=== PATIENT | female | born 1985 | race Two or more races ===

== ENCOUNTER 2016-08-27 07:20 | Observation (INO) | payer OTHER ==
[2016-08-27] MEDS ORDERED: SODIUM CHLORIDE 0.9% 500 ML INFUS.BAG IV ONE ×2 (08:00→10:24)
[2016-08-27] MEDS ORDERED: ONDANSETRON 4 MG/2 ML VIAL IVPB ONE (08:00)
[2016-08-27] MEDS ORDERED: HYDROmorphone HCL CARPU-JECT 1 MG/1 ML DISP.SYRIN IVPUSH ONE (08:01)
--- NOTE | 2016-08-27 08:05 | PDOC ---
History of Present Illness - General History Source: Patient, Old Records Exam Limitations: No Limitations <Sherin Kim - Last Filed: 08/27/16 09:31> - History of Present Illness Initial Comments: 08/27/16 08:08 - General History Source: Patient, Old Records Exam Limitations: No Limitations - History of Present Illness Initial Comments: 08/27/16 08:07 The patient is a 30-year-old woman with no past medical history who presents to the emergency department for further evaluation of persistent vomiting for the past 3 days. As per patient, she was attending her sisters rehearsal dinner, where they served Tequila. She states that she typically does not drink this, but consumed it anyway. Since the event, she reports multiple nonbloody episodes of emesis. No fever, chills, diarrhea. She states that she is unable to tolerate anything by mouth and notes associated symptoms of diffuse abdominal pain, thus presents to the emergency department. Her last menstrual period was a few weeks ago and was normal and on time. Patient presented to this emergency department with a similar presentation in the past (01/30/2016) when she consumed Patrone. She was noted to have some gallbladder inflammation but her symptoms resolved after a few days, thus she did not require undergoing cholecystectomy. She denies fever, chills, diaphoresis, generalized weakness. She denies chest pain, shortness of breath, cough She denies diarrhea, dysuria, hematuria, urinary frequency and urgency, flank pain. Allergies: No Known Drug Allergies. Past Surgical History: None reported Social History: Current some day cigarette smoker (approximately 3-4 cigarettes) . Social ETOH use. Occasional Marijuana. Primary Care Physician: Dr. Aissatou Alcocer [phone] Remainder of the review of systems is negative. <Sherin Kim - Last Filed: 08/27/16 08:08> <Sklya Callejas - Last Filed: 08/27/16 10:44> - General Chief Complaint: Nausea/Vomiting Stated Complaint: VOMITING Time Seen by Provider: 08/27/16 07:48 Past History <Sherin Kim - Last Filed: 08/27/16 09:31> - Past Medical History Asthma: No Cancer: No Cardiac Disorders: No Diabetes: No HTN: No Suicide Attempt (Hx): No Seizures: No Thyroid Disease: No - Immunization History Immunization Up to Date: Yes - Psycho/Social/Smoking Cessation Hx Anxiety: No Suicidal Ideation: No Smoking History: Current some day smoker Have you smoked in the past 12 months: Yes Number of Cigarettes Smoked Daily: 3 If you are a former smoker, when did you quit?: patient smokes marijuana occasionally Information on smoking cessation initiated: No Hx Alcohol Use: No Drug/Substance Use Hx: No Substance Use Type: Marijuana Hx Substance Use Treatment: No <Skyla Callejas - Last Filed: 08/27/16 10:44> - Past Medical History Allergies/Adverse Reactions: Allergies Allergy/AdvReac Type Severity Reaction Status Date / Time No Known Allergies Allergy Verified 08/27/16 07:39 Home Medications: Ambulatory Orders NK [No Known Home Medication] 01/24/15 Review of Systems - Review of Systems Able to Perform ROS?: Yes Comments:: 08/27/16 08:07 12 point review of systems is as per history of present illness and otherwise negative. <Sherin Kim - Last Filed: 08/27/16 09:31> *Physical Exam - Vital Signs Last Vital Signs Temp Pulse Resp BP Pulse Ox 98.2 F 88 18 154/97 100 08/27/16 07:20 08/27/16 07:20 08/27/16 07:20 08/27/16 07:20 08/27/16 07:20 <Sherin Kim - Last Filed: 08/27/16 09:31> - Vital Signs Last Vital Signs Temp Pulse Resp BP Pulse Ox 98.2 F 88 18 154/97 100 08/27/16 07:20 08/27/16 07:20 08/27/16 07:20 08/27/16 07:20 08/27/16 07:20 - Physical Exam Comments: 08/27/16 08:01 Physical exam Last Vital Signs Temp Pulse Resp BP Pulse Ox 98.2 F 88 18 154/97 100 08/27/16 07:20 08/27/16 07:20 08/27/16 07:20 08/27/16 07:20 08/27/16 07:20 GENERAL: The patient is awake, alert, and actively retching and vomiting HEAD: Normal with no signs of trauma. EYES: sclera anicteric, conjunctiva are normal. ENT: Moist mucous membranes. NECK: Normal range of motion, supple LUNGS: Breath sounds equal, clear to auscultation bilaterally. No wheezes, and no crackles. HEART: Regular rate and rhythm, normal S1 and S2 without murmur, rub or gallop. ABDOMEN: The abdomen is soft, with hypoactive but present bowel sounds There is mild diffuse tenderness, but more prominent tenderness in the upper mid epigastrium and right upper quadrant to palpation, without guarding or rebound There is no CVA tenderness EXTREMITIES: Normal range of motion, no edema. No clubbing or cyanosis. No cords, erythema, or tenderness. NEUROLOGICAL: Cranial nerves II through XII grossly intact. Normal speech, normal gait. PSYCH: Normal mood, normal affect. SKIN: Warm, Dry, normal turgor, no rashes or lesions noted. <Skyla Callejas - Last Filed: 08/27/16 10:44> ED Treatment Course - LABORATORY CBC & Chemistry Diagram: 08/27/16 09:12 08/27/16 09:12 - RADIOLOGY Radiograph Interpretation: 08/27/16 09:32 EXAM: US/ABDOMEN US -LIMITED IMPRESSION: Right upper quadrant abdomen ultrasound Clinical information: right upper quadrant and upper mid epigastric pain No biliary calculus is identified. The gallbladder appears unremarkable. No pericholecystic fluid is seen. The common bile duct diameter appears within normal limits 0.4 cm. No obvious intraductal calculus is visualized. The liver and partially visualized pancreas demonstrate no sonographic pathology. A 0.4 cm nonobstructing right renal calculus is identified. No free intraperitoneal fluid is noted. <Sherin Kim - Last Filed: 08/27/16 09:31> - LABORATORY CBC & Chemistry Diagram: 08/27/16 09:12 08/27/16 09:12 <Skyla Callejas - Last Filed: 08/27/16 10:44> Medical Decision Making - Medical Decision Making 08/27/16 08:02 30-year-old female, who after a bout of binge drinking on night, started vomiting, and has not been able to keep anything down since then She did have a similar presentation on 01/2016, and at that time was noted to have some gallbladder inflammation, but her symptoms resolved after a few days, and she did not have a cholecystectomy at that time 08/27/16 10:03 Right upper quadrant ultrasound No sonographic evidence of acute biliary tract pathology, and when compared to the prior ultrasound there is resolution of the mild diffuse gallbladder wall thickening seen on the prior ultrasound 08/27/16 10:42 Laboratory Results - last 24 hr 08/27/16 08/27/16 09:12 09:12 WBC 20.3 H D RBC 5.32 H D Hgb 14.9 D Hct 45.7 H D MCV 86.0 MCHC 32.6 RDW 14.6 Plt Count 212 D MPV 11.5 H Sodium 140 Potassium 4.1 Chloride 101 Carbon Dioxide 24 Anion Gap 15 BUN 19 H D Creatinine 0.8 Creat Clearance w eGFR > 60 Random Glucose 96 Calcium 9.8 D Magnesium 2.0 Total Bilirubin 0.9 D AST 34 D ALT 27 Alkaline Phosphatase 61 D Total Protein 7.6 D Albumin 4.3 D Lipase 70 L 20,000 white count, patient appears somewhat dehydrated Will admit/place in observation Case discussed with hospitalist <Skyla Callejas - Last Filed: 08/27/16 10:44> *DC/Admit/Observation/Transfer - Attestations Scribe Attestion: 08/27/16 08:07 Documentation prepared by Sherin Kim, acting as medical records receptionist for Skyla Callejas MD. <Sherin Kim - Last Filed: 08/27/16 09:31> - Discharge Dispostion Admit: Yes <Skyla Callejas - Last Filed: 08/27/16 10:44> Diagnosis at time of Disposition: Vomiting, Dehydration, Gastritis - Referrals Referrals: Aissatou Alcocer MD [Primary Care Provider] -
[2016-08-27] MEDS ORDERED: ONDANSETRON 4 MG/2 ML VIAL ONE (09:08)
[2016-08-27] MEDS ORDERED: HYDROmorphone HCL CARPU-JECT 1 MG/1 ML DISP.SYRIN ONE (09:18)
[2016-08-27 09:34] LABS: MCH 28.1 pg (25.7-33.7); MCHC 32.6 g/dl (32.0-36.0); MEAN PLT VOLUME 11.5 fl (7.5-11.1); PLATELET COUNT 212 K/MM3 (134-434); RDW 14.6 % (11.6-15.6); WHITE BLOOD COUNT 20.3 K/mm3 (4.0-10.0)
[2016-08-27 10:12] LABS: ALBUMIN 4.3 g/dl (3.4-5.0); ALK PHOS 61 U/L (45-117); ANION GAP 15 (8-16); BILIRUBIN,TOTAL 0.9 mg/dL (0.2-1.0); CALCIUM 9.8 mg/dL (8.5-10.1); CO2 24 mmol/L (21-32); CREATININE 0.8 mg/dL (0.55-1.02); GLUCOSE,RANDOM 96 mg/dL (74-106); SGPT/ALT 27 U/L (12-78); TOT PROT 7.6 g/dl (6.4-8.2)
[2016-08-27 10:13] LABS: SGOT/AST 34 U/L (15-37)
--- NOTE | 2016-08-27 11:43 | HP ---
CHIEF COMPLAINT: PCP: HISTORY OF PRESENT ILLNESS: ER course was notable for: (1) (2) (3) Recent Travel: PAST MEDICAL HISTORY: PAST SURGICAL HISTORY: Social History: Smoking: Alcohol: Drugs: Family History: Allergies No Known Allergies Allergy (Verified 08/27/16 07:39) HOME MEDICATIONS: Home Medications Medication Instructions Recorded NK [No Known Home Medication] 01/24/15 REVIEW OF SYSTEMS CONSTITUTIONAL: Absent: fever, chills, diaphoresis, generalized weakness, malaise, loss of appetite, weight change HEENT: Absent: rhinorrhea, nasal congestion, throat pain, throat swelling, difficulty swallowing, mouth swelling, ear pain, eye pain, visual changes CARDIOVASCULAR: Absent: chest pain, syncope, palpitations, irregular heart rate, lightheadedness , peripheral edema RESPIRATORY: Absent: cough, shortness of breath, dyspnea with exertion, orthopnea, wheezing, stridor, hemoptysis GASTROINTESTINAL: Absent: abdominal pain, abdominal distension, nausea, vomiting, diarrhea, constipation, melena, hematochezia GENITOURINARY: Absent: dysuria, frequency, urgency, hesitancy, hematuria, flank pain, genital pain MUSCULOSKELETAL: Absent: myalgia, arthralgia, joint swelling, back pain, neck pain SKIN: Absent: rash, itching, pallor HEMATOLOGIC/IMMUNOLOGIC: Absent: easy bleeding, easy bruising, lymphadenopathy, frequent infections ENDOCRINE: Absent: unexplained weight gain, unexplained weight loss, heat intolerance, cold intolerance NEUROLOGIC: Absent: headache, focal weakness or paresthesias, dizziness, unsteady gait, seizure, mental status changes, bladder or bowel incontinence PSYCHIATRIC: Absent: anxiety, depression, suicidal or homicidal ideation, hallucinations. PHYSICAL EXAMINATION GENERAL: Awake, alert, and fully oriented, in no acute distress. HEAD: Normal with no signs of trauma. EYES: Pupils equal, round and reactive to light, extraocular movements intact, sclera anicteric, conjunctiva clear. No lid lag. EARS, NOSE, THROAT: Ears normal, nares patent, oropharynx clear without exudates. Moist mucous membranes. NECK: Normal range of motion, supple without lymphadenopathy, JVD, or masses. LUNGS: Breath sounds equal, clear to auscultation bilaterally. No wheezes, and no crackles. No accessory muscle use. HEART: Regular rate and rhythm, normal S1 and S2 without murmur, rub or gallop. ABDOMEN: Soft, nontender, not distended, normoactive bowel sounds, no guarding, no rebound, no masses. No hepatomegaly or splenomegaly. MUSCULOSKELETAL: Normal range of motion at all joints. No bony deformities or tenderness. No CVA tenderness. UPPER EXTREMITIES: 2+ pulses, warm, well-perfused. No cyanosis. No clubbing. No peripheral edema. LOWER EXTREMITIES: 2+ pulses, warm, well-perfused. No calf tenderness. No peripheral edema. NEUROLOGICAL: Cranial nerves II-XII intact. Normal speech. Normal gait. PSYCHIATRIC: Cooperative. Good eye contact. Appropriate mood and affect. SKIN: Warm, dry, normal turgor, no rashes or lesions noted, normal capillary refill. ASSESSMENT/PLAN: Visit type - Emergency Visit Emergency Visit: Yes ED Registration Date: 08/27/16 Care time: The patient presented to the Emergency Department on the above date and was hospitalized for further evaluation of their emergent condition. - New Patient This patient is new to me today: Yes Date on this admission: 08/27/16 - Critical Care Critical Care patient: No
[2016-08-27 11:49] VITALS: BMI 24.9
[2016-08-27 12:02] LABS: URINE APPEARANCE CLEAR; URINE BILIRUBIN NEGATIVE (NEGATIVE); URINE COLOR AMBER; URINE GLUCOSE (UA) NEGATIVE (NEGATIVE); URINE KETONE 1+ (NEGATIVE); URINE LEUK ESTERASE NEGATIVE (NEGATIVE); URINE NITRITE NEGATIVE (NEGATIVE); URINE UROBILINOGEN 2.0 E.U/dl E.U./dl (0.2-1.0)
[2016-08-27 12:24] LABS: URINE BLOOD 1+ (NEGATIVE); URINE PROTEIN 2+ (NEGATIVE)
[2016-08-27 12:26] LABS: URINE MUCUS MANY; URINE RBC 20 /hpf (0-3); URINE WBC 10 /hpf (3-5)
--- NOTE | 2016-08-27 13:47 | HP ---
CHIEF COMPLAINT: nausea, hyperemesis and elevated wbc PCP: does not have one HISTORY OF PRESENT ILLNESS: This 30 yr old with a recent episode of drinking alcohol ingesting large quantities while at a wedding when she developed several epsiodes of excessive vomiting becoming cyclical and dehydration evolved. ER course was notable for: (1) nausea and vomiting (2) leukocytosis (3) dehydration Recent Travel: none PAST MEDICAL HISTORY: none PAST SURGICAL HISTORY: denies Social History: Smoking: Alcohol: current user Drugs: Family History: Allergies No Known Allergies Allergy (Verified 08/27/16 07:39) HOME MEDICATIONS: Home Medications Medication Instructions Recorded NK [No Known Home Medication] 01/24/15 REVIEW OF SYSTEMS CONSTITUTIONAL: Absent: fever, chills, diaphoresis, generalized weakness, malaise, loss of appetite, weight change HEENT: Absent: rhinorrhea, nasal congestion, throat pain, throat swelling, difficulty swallowing, mouth swelling, ear pain, eye pain, visual changes CARDIOVASCULAR: Absent: chest pain, syncope, palpitations, irregular heart rate, lightheadedness , peripheral edema RESPIRATORY: Absent: cough, shortness of breath, dyspnea with exertion, orthopnea, wheezing, stridor, hemoptysis GASTROINTESTINAL: Absent: abdominal pain, abdominal distension, nausea, vomiting, diarrhea, constipation, melena, hematochezia GENITOURINARY: Absent: dysuria, frequency, urgency, hesitancy, hematuria, flank pain, genital pain MUSCULOSKELETAL: Absent: myalgia, arthralgia, joint swelling, back pain, neck pain SKIN: Absent: rash, itching, pallor HEMATOLOGIC/IMMUNOLOGIC: Absent: easy bleeding, easy bruising, lymphadenopathy, frequent infections ENDOCRINE: Absent: unexplained weight gain, unexplained weight loss, heat intolerance, cold intolerance NEUROLOGIC: Absent: headache, focal weakness or paresthesias, dizziness, unsteady gait, seizure, mental status changes, bladder or bowel incontinence PSYCHIATRIC: Absent: anxiety, depression, suicidal or homicidal ideation, hallucinations. PHYSICAL EXAMINATION Vital Signs - 24 hr 08/27/16 08/27/16 11:30 12:00 Temperature 98.3 F Pulse Rate 67 72 Respiratory 18 18 Rate Blood Pressure 123/73 122/77 O2 Sat by Pulse 97 98 Oximetry (%) GENERAL: Awake, alert, and fully oriented, in no acute distress. HEAD: Normal with no signs of trauma. NECK: Normal range of motion, supple without lymphadenopathy, JVD, or masses. LUNGS: Breath sounds equal, clear to auscultation bilaterally. No wheezes, and no crackles. No accessory muscle use. HEART: Regular rate and rhythm, normal S1 and S2 without murmur, rub or gallop. ABDOMEN: Soft, nontender, not distended, normoactive bowel sounds, no guarding, no rebound, no masses. No hepatomegaly or splenomegaly. MUSCULOSKELETAL: Normal range of motion at all joints. No bony deformities or tenderness. No CVA tenderness. UPPER EXTREMITIES: 2+ pulses, warm, well-perfused. No cyanosis. No clubbing. No peripheral edema. LOWER EXTREMITIES: 2+ pulses, warm, well-perfused. No calf tenderness. No peripheral edema. NEUROLOGICAL: Cranial nerves II-XII intact. Normal speech. Normal gait. PSYCHIATRIC: Cooperative. Good eye contact. Appropriate mood and affect. SKIN: Warm, dry, normal turgor, no rashes or lesions noted, normal capillary refill. Laboratory Results - last 24 hr 08/27/16 08/27/16 11:42 11:42 Urine Color Marybeth Urine Appearance Clear Urine pH 6.0 D Ur Specific [place] 1.034 Urine Protein 2+ H Urine Glucose (UA) Negative Urine Ketones 1+ H Urine Blood 1+ H Urine Nitrite Negative Urine Bilirubin Negative Urine Urobilinogen 2.0 e.u/dl H Ur Leukocyte Esterase Negative Urine RBC 20 Urine WBC 10 Ur Epithelial Cells Few Urine Mucus Many Urine HCG, Qual Negative ASSESSMENT/PLAN: This 30 yr old with dehydration 2nd to vomiting and elevated WBC 1. dehydration -IVF's -po challenge -zofran as needed 2. wbc elevated. possible due to dehydration -repeat cbc after rehydration Visit type - Emergency Visit Emergency Visit: Yes ED Registration Date: 08/27/16 Care time: The patient presented to the Emergency Department on the above date and was hospitalized for further evaluation of their emergent condition. - New Patient This patient is new to me today: Yes Date on this admission: 08/27/16 - Critical Care Critical Care patient: No
[2016-08-27] MEDS: ONDANSETRON 4 MG/2 ML VIAL IVPB PRN ×2 (14:22→22:16)
[2016-08-27 15:02] LABS: PLATELET ESTIMATE ADEQUATE (NORMAL)
[2016-08-27] MEDS: HYDROmorphone HCL CARPU-JECT 1 MG/1 ML DISP.SYRIN IVPB PRN (15:06)
[2016-08-27] MEDS: SODIUM CHLORIDE 1,000 ML IV SCH ×2 (16:13→23:26)
[2016-08-28] MEDS ORDERED: ACETAMINOPHEN 325 MG TABLET (FP) PO ONE (02:15)
[2016-08-28] MEDS: SODIUM CHLORIDE 1,000 ML IV SCH ×3 (06:28→22:56)
[2016-08-28 08:18] LABS: ALBUMIN 3.1 g/dl (3.4-5.0); ALK PHOS 52 U/L (45-117); ANION GAP 13 (8-16); BILIRUBIN,TOTAL 0.9 mg/dL (0.2-1.0); CALCIUM 7.9 mg/dL (8.5-10.1); CO2 24 mmol/L (21-32); CREATININE 0.7 mg/dL (0.55-1.02); GLUCOSE,RANDOM 82 mg/dL (74-106); MAGNESIUM 1.7 mg/dL (1.8-2.4); PHOSPHOROUS 2.9 mg/dL (2.5-4.9); SGOT/AST 15 U/L (15-37); SGPT/ALT 20 U/L (12-78); TOT PROT 5.6 g/dl (6.4-8.2)
[2016-08-28] MEDS ORDERED: POTASSIUM CHLORIDE TABS 20 MEQ TABLET.ER (FP) PO ONE (09:30)
[2016-08-28] MEDS ORDERED: MAGNESIUM OXIDE 400 MG TABLET (FP) PO ONE (09:30)
[2016-08-28 10:34] LABS: BASOPHIL 0.6 % (0-2.0); EOSINOPHIL 0.1 % (0-4.5); MCH 27.9 pg (25.7-33.7); MCHC 32.2 g/dl (32.0-36.0); MEAN CELL VOLUME 86.5 fl (80-96); MEAN PLT VOLUME 11.1 fl (7.5-11.1); NEUTROPHILS 77.1 % (42.8-82.8); PLATELET COUNT 151 K/MM3 (134-434); RDW 14.3 % (11.6-15.6); WHITE BLOOD COUNT 16.8 K/mm3 (4.0-10.0)
[2016-08-28] MEDS: ONDANSETRON 4 MG/2 ML VIAL IVPB PRN ×2 (11:20→22:57)
[2016-08-28] MEDS: HYDROmorphone HCL CARPU-JECT 1 MG/1 ML DISP.SYRIN IVPB PRN (11:35)
[2016-08-28] MEDS: KCL 10 MEQ IVPB 100 ML IVPB SCH ×2 (11:37→13:10)
[2016-08-28] MEDS ORDERED: METRONIDAZOLE 500 MG PREMIXED 100 ML IVPB SCH (18:00)
--- NOTE | 2016-08-28 18:08 | PN ---
Progress Note (short form) - Note Progress Note: Subjective: The patient was seen and examined at the bedside, she reports having one episode of vomiting this AM (food particles, non-bilious, non-bloody) , however nothing since then. She denies any diarrhea, stating she had a solid bowel movement this morning. She denies any abdominal pain. Current Medications Generic Name Dose Route Start Last Admin Trade Name Freq PRN Reason Stop Dose Admin Hydromorphone HCl 0.5 mg 08/27/16 14:41 08/28/16 11:35 Dilaudid Injection - IVPB 0.5 mg Q4H PRN Administration PAIN Sodium Chloride 1,000 mls @ 125 mls/hr 08/27/16 11:45 08/28/16 15:11 Normal Saline - IV Not Given ASDIR UMA Ondansetron HCl 4 mg 08/27/16 11:43 08/28/16 11:20 Zofran Injection IVPB 4 mg Q6H PRN Administration NAUSEA Objective: Vital Signs Period Temp Pulse Resp BP Sys/Gillette Pulse Ox Last 24 Hr 98.5 F-100.5 F 65-89 18-18 108-145/74-99 98 Physical Exam: General: NAD, A&Ox3 Lungs: CTA bilaterally Heart: RRR, S1S2 Abd: Soft, non-tender, non-distended. Normoactive bowel sounds Ext: Warm, well-perfused. 2+ DP/PT bilaterally Neuro: CN 2-12 intact CBCD WBC 16.8 K/mm3 (4.0-10.0) H 08/28/16 05:31 RBC 4.54 M/mm3 (3.60-5.2) 08/28/16 05:31 Hgb 12.6 GM/dL (10.7-15.3) D 08/28/16 05:31 Hct 39.2 % (32.4-45.2) 08/28/16 05:31 MCV 86.5 fl (80-96) 08/28/16 05:31 MCHC 32.2 g/dl (32.0-36.0) 08/28/16 05:31 RDW 14.3 % (11.6-15.6) 08/28/16 05:31 Plt Count 151 K/MM3 (134-434) D 08/28/16 05:31 MPV 11.1 fl (7.5-11.1) 08/28/16 05:31 CMP Sodium 141 mmol/L (136-145) 08/28/16 05:31 Potassium 2.9 mmol/L (3.5-5.1) L* D 08/28/16 05:31 Chloride 104 mmol/L (98-107) 08/28/16 05:31 Carbon Dioxide 24 mmol/L (21-32) 08/28/16 05:31 Anion Gap 13 (8-16) 08/28/16 05:31 BUN 8 mg/dL (7-18) D 08/28/16 05:31 Creatinine 0.7 mg/dL (0.55-1.02) 08/28/16 05:31 Creat Clearance w eGFR > 60 (>60) 08/28/16 05:31 Random Glucose 82 mg/dL (74-106) 08/28/16 05:31 Calcium 7.9 mg/dL (8.5-10.1) L 08/28/16 05:31 Total Bilirubin 0.9 mg/dL (0.2-1.0) 08/28/16 05:31 AST 15 U/L (15-37) D 08/28/16 05:31 ALT 20 U/L (12-78) D 08/28/16 05:31 Alkaline Phosphatase 52 U/L (45-117) 08/28/16 05:31 Total Protein 5.6 g/dl (6.4-8.2) L D 08/28/16 05:31 Albumin 3.1 g/dl (3.4-5.0) L D 08/28/16 05:31 Assessment: This is a 30 year old female with PMHx of admissions for vomiting who presented to the ED with vomiting and nausea x2 days. Plan: 1) GI: Nausea/vomiting - Resolving, last episode of vomiting this AM - Zofran prn - Diet as tolerated 2) ID: Leukocytosis, fever - Reactive vs. infectious - WBC trending down - Tmax 100.5 - UA negative - F/u blood cultures - Continue to observe off abx 3) F/E/N: - Hypokalemia: replete - Regular diet as tolerated 4) Prophylaxis: - OOB ambulating - SCDs bilaterally 5) Dispo: - Requires continued care - Once afebrile >24h, can consider discharge CODE STATUS: FULL CODE Visit type - Emergency Visit Emergency Visit: Yes ED Registration Date: 08/27/16 Care time: The patient presented to the Emergency Department on the above date and was hospitalized for further evaluation of their emergent condition. - New Patient This patient is new to me today: Yes Date on this admission: 08/28/16 - Critical Care Critical Care patient: No
[2016-08-29] MEDS: SODIUM CHLORIDE 1,000 ML IV SCH (07:36)
[2016-08-29 08:15] LABS: BASOPHIL 0.9 % (0-2.0); MCH 28.5 pg (25.7-33.7); MCHC 33.2 g/dl (32.0-36.0); MEAN CELL VOLUME 85.8 fl (80-96); MEAN PLT VOLUME 10.3 fl (7.5-11.1); NEUTROPHILS 66.8 % (42.8-82.8); PLATELET COUNT 160 K/MM3 (134-434); RDW 13.9 % (11.6-15.6); WHITE BLOOD COUNT 11.3 K/mm3 (4.0-10.0)
[2016-08-29 08:48] LABS: ALBUMIN 3.2 g/dl (3.4-5.0); ALK PHOS 52 U/L (45-117); ANION GAP 12 (8-16); BILIRUBIN,TOTAL 0.5 mg/dL (0.2-1.0); CALCIUM 8.5 mg/dL (8.5-10.1); CO2 25 mmol/L (21-32); CREATININE 0.8 mg/dL (0.55-1.02); GLUCOSE,RANDOM 76 mg/dL (74-106); MAGNESIUM 1.9 mg/dL (1.8-2.4); SGOT/AST 15 U/L (15-37); SGPT/ALT 20 U/L (12-78); TOT PROT 5.7 g/dl (6.4-8.2)
[2016-08-29] MEDS ORDERED: LEVOFLOXACIN 500 MG IVPB 100 ML IVPB SCH (10:00)
--- NOTE | 2016-08-29 10:32 | DS ---
Physical Exam: SUBJECTIVE: Patient seen and examined. Feeling much better. No complaints on exam. Tolerated fruit and juice for breakfast. OBJECTIVE: Vital Signs - 24 hr 3 08/28/16 08/28/16 08/28/16 12:00 14:51 17:30 Temperature 98.5 F 99.5 F Pulse Rate 67 65 Respiratory 18 18 18 Rate Blood Pressure 139/82 139/95 O2 Sat by Pulse 99 Oximetry (%) 3 08/28/16 08/28/16 08/29/16 20:00 21:00 01:00 Temperature 98.6 F 98.7 F Pulse Rate 71 71 Respiratory 20 20 Rate Blood Pressure 144/98 139/89 O2 Sat by Pulse 99 Oximetry (%) 3 08/29/16 05:00 Temperature 98.4 F Pulse Rate 72 Respiratory 20 Rate Blood Pressure 130/85 O2 Sat by Pulse Oximetry (%) PHYSICAL EXAM GENERAL: The patient is awake, alert, and fully oriented, in no acute distress. HEAD: Normal with no signs of trauma. EYES: PERRL, extraocular movements intact, sclera anicteric, conjunctiva clear. ENT: Ears normal, nares patent, oropharynx clear without exudates, moist mucous membranes. NECK: Trachea midline, full range of motion, supple. LUNGS: Breath sounds equal, clear to auscultation bilaterally, no wheezes, no crackles, no accessory muscle use. HEART: Regular rate and rhythm, S1, S2 without murmur, rub or gallop. ABDOMEN: Soft, nontender, nondistended, normoactive bowel sounds, no guarding, no rebound, no hepatosplenomegaly, no masses. EXTREMITIES: 2+ pulses, warm, well-perfused, no edema. NEUROLOGICAL: Cranial nerves II through XII grossly intact. Normal speech, gait not observed. PSYCH: Normal mood, normal affect. SKIN: Warm, dry, normal turgor, no rashes or lesions noted. LABS Laboratory Results - last 24 hr 3 08/28/16 08/29/16 08/29/16 05:31 07:45 07:45 WBC 16.8 H 11.3 H D RBC 4.54 4.66 Hgb 12.6 D 13.3 Hct 39.2 40.0 MCV 86.5 85.8 MCHC 32.2 33.2 RDW 14.3 13.9 Plt Count 151 D 160 MPV 11.1 10.3 Neutrophils % 77.1 66.8 Lymphocytes % 10.9 19.9 D Monocytes % 11.3 H 11.4 H Eosinophils % 0.1 D 1.0 D Basophils % 0.6 D 0.9 Sodium 141 Potassium 3.7 D Chloride 104 Carbon Dioxide 25 Anion Gap 12 BUN 5 L D Creatinine 0.8 Creat Clearance w eGFR > 60 Random Glucose 76 Calcium 8.5 Magnesium 1.9 Total Bilirubin 0.5 D AST 15 ALT 20 Alkaline Phosphatase 52 Total Protein 5.7 L Albumin 3.2 L HOSPITAL COURSE: Date of Admission:08/27/16 Date of Discharge: 08/29/16 This is a 30 year old female with PMH of recurrent vomiting who presented to the emergency department on 08/27/16 for persistent vomiting after drinking alcohol. She was treated for dehydration, hypokalemia and was found with leukocytosis. The leukocytosis is believed to be reactive to vomiting and dehydration. Her potassium responded to repletion. She is now stable, has had no fever or vomiting for greater than 24 hours and is ready for discharge. Pt is advised to abstain from alcohol and given a trial of zantac for 2 weeks. ASSESSMENT AND PLAN Vomiting - resolved Hypokalemia - resolved leukocytosis - improving, f/u with PCP in 1-2 weeks. Minutes to complete discharge: 45 Discharge Summary Reason For Visit: VOMITING, DEHYDRATION, GASTRITIS Current Active Problems Dehydration (Acute) Gastritis (Acute) Vomiting (Acute) Condition: Stable - Instructions Diet, Activity, Other Instructions: Return to the emergency department for new, worsening or persistent symptoms. Eat a bland diet, aviod spicy foods. Follow up with you primary care provider within 1-2 weeks. Avoid ALCOHOL. Referrals: Aissatou Alcocer MD [Primary Care Provider] - 2 Weeks Disposition: HOME - Home Medications Comprehensive Discharge Medication List: Ambulatory Orders Ranitidine [Zantac -] 150 mg PO DAILY #14 tablet 08/29/16 This patient is new to me today: Yes Date on this admission: 08/29/16 Emergency Visit: Yes ED Registration Date: 08/27/16 Care time: The patient presented to the Emergency Department on the above date and was hospitalized for further evaluation of their emergent condition. Critical Care patient: No - Discharge Referral Referred to [facility] No
[2016-08-29 10:35] VITALS: BP 139/88; PULSE 74; TEMP 98.2
== END 2016-08-29 10:43 | disposition home or self-care (01) ==
LOC: JER 07:20 → JERBED 10:52 → J5S 11:50
PROVIDERS: ADMIT Internal Medicine; ATTEND Nurse Practitioner Family
PROC: 3E033NZ Introduction of Analgesics, Hypnotics, Sedatives into Peripheral Vein, Percutaneous Approach (ICD-10-PCS; principal; 2016-08-27)
PROC: 3E033GC Introduction of Other Therapeutic Substance into Peripheral Vein, Percutaneous Approach (ICD-10-PCS; 2016-08-27)
PROC: 3E0337Z Introduction of Electrolytic and Water Balance Substance into Peripheral Vein, Percutaneous Approach (ICD-10-PCS; 2016-08-27)
DX: E86.0 Dehydration (principal); K29.70 Gastritis, unspecified, without bleeding; R11.10 Vomiting, unspecified; D72.829 Elevated white blood cell count, unspecified; E87.6 Hypokalemia
CPT/HCPCS: 36415; 76705-TC; 80053; 81003; 81015; 83690; 83735; 84100; 84703; 85025; 85027; 87040; 87086; 99283-25; G0378

== ENCOUNTER 2016-10-11 10:51 | Emergency (ER) | payer OTHER ==
[2016-10-11 10:55] VITALS: TEMP 97.6; BMI 24.1
[2016-10-11 11:25] LABS: BASOPHIL 0.4 % (0-2.0); MCH 28.5 pg (25.7-33.7); MCHC 33.4 g/dl (32.0-36.0); MEAN CELL VOLUME 85.3 fl (80-96); MEAN PLT VOLUME 10.4 fl (7.5-11.1); NEUTROPHILS 78.8 % (42.8-82.8); PLATELET COUNT 215 K/MM3 (134-434); RDW 13.9 % (11.6-15.6)
--- NOTE | 2016-10-11 11:32 | PDOC ---
History of Present Illness - General Chief Complaint: Nausea/Vomiting Stated Complaint: VOMITING, NAUSEA Time Seen by Provider: 10/11/16 11:09 - History of Present Illness Initial Comments: 30 y/o F w/no PMH presents to ER w/ c/o vomiting. Vomiting started last night 10 min after eating soup from a can. Since then she has been vomiting countless times but vomit has been non-bloody and non-bilious. Pt has not been able to tolerate PO diet. Pt has had some chills and light-headedness since last night. She states she has abd pain from cramping of her abdominal muscles but has not had abdominal pain which she attributes to organ pain. She feels as though she may be as she had unprotected sex last one week ago. She has been 3 times (w/3 abortions) in the past and has vomiting with each . Last BM was 1 day ago and pt has been passing gas. Pt denies fevers, visual changes, hearing changes, chest pain, sob, recent travel, sick contacts. Past History - Travel Traveled outside of the country in the last 30 days: No - Past Medical History Allergies/Adverse Reactions: Allergies Allergy/AdvReac Type Severity Reaction Status Date / Time No Known Allergies Allergy Verified 10/11/16 10:55 Home Medications: Ambulatory Orders Ondansetron [Zofran Odt -] 4 mg SL BID #14 od.tablet 10/11/16 Asthma: No Cancer: No Cardiac Disorders: No Diabetes: No HTN: No Suicide Attempt (Hx): No Seizures: No Thyroid Disease: No - Immunization History Immunization Up to Date: Yes - Psycho/Social/Smoking Cessation Hx Anxiety: No Suicidal Ideation: No Smoking History: Never smoked Have you smoked in the past 12 months: Yes Number of Cigarettes Smoked Daily: 3 If you are a former smoker, when did you quit?: patient smokes marijuana occasionally Information on smoking cessation initiated: No 'Breaking Loose' booklet given: 08/27/16 Hx Alcohol Use: No Drug/Substance Use Hx: Yes (marijuana) Substance Use Type: None, Marijuana Hx Substance Use Treatment: No Review of Systems - Review of Systems Able to Perform ROS?: Yes Comments:: CONSTITUTIONAL: +chills Absent: fever, no fatigue EYES: Absent: visual changes 0ENT: Absent: hearing changes, no sore throat CARDIOVASCULAR: Absent: chest pain, no palpitations RESPIRATORY: Absent: cough, no SOB GI: +abdominal pain (muscular), nausea, vomiting Absent: no constipation, no diarrhea GENITOURINARY: Absent: dysuria, no frequency, no hematuria MUSCULOSKELETAL: Absent: back pain, no arthralgia, no myalgia SKIN: Absent: rash NEURO: Absent: headache *Physical Exam - Vital Signs Last Vital Signs Temp Pulse Resp BP Pulse Ox 97.6 F 100 H 18 143/90 100 10/11/16 10:52 10/11/16 10:52 10/11/16 10:52 10/11/16 10:52 10/11/16 10:52 - Physical Exam Comments: GENERAL: Well-appearing, well-nourished. No apparent distress. HEENT: Normocephalic, atraumatic. EOM intact. CARDIOVASCULAR: Normal S1, S2. Regular rate and rhythm. PULMONARY: Clear to auscultation bilaterally. ABDOMEN: Soft, non-distended, non-tender. EXTREMITIES: Normal ROM in all four extremities. No gross deformities. SKIN: Warm, dry. No rash NEUROLOGICAL: No focal neurological deficits. ED Treatment Course - LABORATORY CBC & Chemistry Diagram: 10/11/16 11:05 10/11/16 11:05 Medical Decision Making - Medical Decision Making 10/11/16 11:45 UA, CBCD, CMP, Urine ordered 10/11/16 13:37 CBC shows 15 wbc, likely reactive to vomiting electrolytes w[place] [id number] Will do bedside ultrasound for . 10/11/16 14:03 Bedside ultrasound shows possible fetus in uterus. Will order transvaginal US. 10/11/16 15:15 TV Ultrasound shows: single live intrauterine with estimated gestational age of 6 weeks 1 day. A small to moderate sized subchronic hemorrhage is present. Cyst/corpus luteum cyst in the left ovary measuring 1.5 cm. Pt to be discharged home with sublingual zofran. Pt to f/u with [facility] (Dr. Menjivar recommended and referred). Pt tolerating crackers and orange juice at this time as well. *DC/Admit/Observation/Transfer Diagnosis at time of Disposition: - Discharge Dispostion Disposition: HOME Condition at time of disposition: Stable - Prescriptions Prescriptions: Ondansetron [Zofran Odt -] 4 mg SL BID #14 od.tablet - Referrals Referrals: Genet Menjivar MD [Staff Physician] - - Patient Instructions Printed Discharge Instructions: DI for -- Discomforts and Remedies Additional Instructions: Follow up with Dr. Menjivar for [facility] It is imperative you follow up with [facility] for your . Anti-nausea meds have been prescribed to your pharmacy. If your symptoms worsen come back to the ER.
[2016-10-11] MEDS ORDERED: ONDANSETRON 4 MG/2 ML VIAL IVPUSH ONE ×2 (11:43→15:11)
[2016-10-11] MEDS ORDERED: SODIUM CHLORIDE 1,000 ML IV SCH (11:45)
[2016-10-11 11:47] LABS: ALBUMIN 4.3 g/dl (3.4-5.0); ANION GAP 17 (8-16); CALCIUM 9.9 mg/dL (8.5-10.1); CO2 22 mmol/L (21-32); CREATININE 0.8 mg/dL (0.55-1.02); GLUCOSE,RANDOM 103 mg/dL (74-106); SGPT/ALT 25 U/L (12-78)
[2016-10-11 12:00] LABS: ALK PHOS 65 U/L (45-117); BILIRUBIN,TOTAL 0.7 mg/dL (0.2-1.0)
[2016-10-11 12:01] LABS: SGOT/AST 35 U/L (15-37)
[2016-10-11] MEDS ORDERED: ONDANSETRON 4 MG/2 ML VIAL ONE ×2 (12:10→14:51)
[2016-10-11] MEDS ORDERED: FAMOTIDINE 20 MG/50 ML IVPB 50 ML IVPB ONE ×2 (13:01→13:13)
[2016-10-11] MEDS ORDERED: SODIUM CHLORIDE 1,000 ML IV ONE (13:01)
--- NOTE | 2016-10-11 13:01 | PDOC ---
Attending Attestation - Resident Resident Name: Juan Haynes - ED Attending Attestation I have performed the following: I have examined & evaluated the patient, The case was reviewed & discussed with the resident, I agree w/resident's findings & plan, Exceptions are as noted - HPI HPI: 10/11/16 12:59 30-year-old healthy female LMP about 5 weeks and suspected positive presents with intractable nausea/vomiting since drinking some canned soup yesterday. Symptoms began immediately, almost 10 minutes, after drinking soup. No associated persistence of abdominal pain, no diarrhea, no fevers or chills, no travel or sick contacts. no bleeding/cramping - Physicial Exam PE: 10/11/16 13:00 Vital signs normal. Abdominal exam is benign, epigastric discomfort without guarding or rebound. - Medical Decision Making 10/11/16 13:00 Patient seen and evaluated with the resident. I agree with the overall evaluation, assessment, and management with the following summary of visit: 30-year-old female with nausea/vomiting, incidentally . Unlikely related to the , she has no abdominal pain or cramping or bleeding, just epigastric dyspepsia/gastritis. Expect toxin related given the timing of the symptoms. IV fluid rehydration, antiemetics, antacid 10/11/16 15:15 labs wnl. bedside u/s revealed no gallstones. unable to identify IUP on bedside transabdominal, TVUS confirms IUP.
[2016-10-11 16:28] VITALS: BP 145/89; PULSE 69
== END 2016-10-11 16:28 | disposition home or self-care (01) ==
LOC: JER 10:51
PROC: 3E0337Z Introduction of Electrolytic and Water Balance Substance into Peripheral Vein, Percutaneous Approach (ICD-10-PCS; principal; 2016-10-11)
PROC: 3E033GC Introduction of Other Therapeutic Substance into Peripheral Vein, Percutaneous Approach (ICD-10-PCS; 2016-10-11)
PROC: 3E033GC Introduction of Other Therapeutic Substance into Peripheral Vein, Percutaneous Approach (ICD-10-PCS; 2016-10-11)
DX: O21.0 Mild hyperemesis gravidarum (principal); Z3A.01 Less than 8 weeks gestation of pregnancy
CPT/HCPCS: 36415; 76801-TC; 80053; 83690; 84702; 85025; 86850; 86900; 86901; 96361; 96365; 96375; 99283-25

== ENCOUNTER 2016-12-19 02:29 | Emergency (ER) | payer OTHER ==
[2016-12-19 02:46] VITALS: BMI 23.6
--- NOTE | 2016-12-19 02:49 | PDOC ---
Attending Attestation - Resident Resident Name: FrankrainkangCory - HPI HPI: 12/21/16 23:12 Pt presents to the ED complaining of intractable nausea and vomiting. Also complaining of syncopal episode. - Physicial Exam PE: 12/21/16 23:13 Agree with resident's exam. Abdomen non tender on my exam. - Medical Decision Making 12/21/16 23:15 Pt presents to the ED complaining of nausea and vomiting. labs are within normal limits, but patient continues to vomit despite Iv hydration, zofran and reglan. Will give more hydration and admit for observation if continues to vomit.
[2016-12-19] MEDS ORDERED: ONDANSETRON 4 MG/2 ML VIAL IVPUSH ONE ×2 (02:53→06:35)
[2016-12-19] MEDS ORDERED: SODIUM CHLORIDE 0.9% 1000 ML INFUS.BAG IV ONE ×3 (02:53→07:29)
[2016-12-19] MEDS ORDERED: ONDANSETRON 4 MG/2 ML VIAL ONE (03:03)
[2016-12-19 03:21] LABS: MCH 28.1 pg (25.7-33.7); MCHC 33.1 g/dl (32.0-36.0); MEAN CELL VOLUME 85.1 fl (80-96); MEAN PLT VOLUME 10.8 fl (7.5-11.1); PLATELET COUNT 200 K/MM3 (134-434); RDW 14.6 % (11.6-15.6); WHITE BLOOD COUNT 13.7 K/mm3 (4.0-10.0)
[2016-12-19 03:50] LABS: ALBUMIN 4.7 g/dl (3.4-5.0); ANION GAP 12 (8-16); BILIRUBIN,TOTAL 0.9 mg/dL (0.2-1.0); CALCIUM 9.7 mg/dL (8.5-10.1); CO2 25 mmol/L (21-32); CREATININE 0.8 mg/dL (0.55-1.02); GLUCOSE,RANDOM 126 mg/dL (74-106); SGPT/ALT 31 U/L (12-78); TOT PROT 7.8 g/dl (6.4-8.2)
--- NOTE | 2016-12-19 04:04 | PDOC ---
History of Present Illness - General Chief Complaint: Nausea/Vomiting Stated Complaint: VOMITING, PAIN Time Seen by Provider: 12/19/16 02:42 History Source: Patient Exam Limitations: No Limitations - History of Present Illness Initial Comments: 12/19/16 03:59 The patient is a 31F with no significant PMH who presents to the ED via EMS after a syncopal episode and constant nausea/vomiting. The patient states that she had japanese food on Sunday, then woke up Sunday morning vomiting and has been vomiting since. The vomit has been yellow/mucous, non bloody, non bilious. The patient had a syncopal episode while she was trying to get out of the shower before her arrival. She states that she briefly lost consciousness but did not hit her head. She woke herself up and did not have an aura or postictal state. Social: Does not smoke, drink, or use recreational drugs Allergies: NKDA Surg: none Past History - Past Medical History Allergies/Adverse Reactions: Allergies Allergy/AdvReac Type Severity Reaction Status Date / Time No Known Allergies Allergy Verified 12/19/16 02:44 Home Medications: Ambulatory Orders Ondansetron [Zofran Odt -] 4 mg SL BID #14 od.tablet 10/11/16 Asthma: No Cancer: No Cardiac Disorders: No Diabetes: No HTN: No Suicide Attempt (Hx): No Seizures: No Thyroid Disease: No - Immunization History Immunization Up to Date: Yes - Psycho/Social/Smoking Cessation Hx Anxiety: No Suicidal Ideation: No Smoking History: Never smoked Have you smoked in the past 12 months: No Number of Cigarettes Smoked Daily: 3 If you are a former smoker, when did you quit?: patient smokes marijuana occasionally Information on smoking cessation initiated: No 'Breaking Loose' booklet given: 08/27/16 Hx Alcohol Use: No Drug/Substance Use Hx: No Substance Use Type: None, Marijuana Hx Substance Use Treatment: No Review of Systems - Review of Systems Able to Perform ROS?: Yes Is the patient limited Citizen [place] proficient: No Constitutional: Yes: Chills, Weakness. No: Fever Respiratory: No: Shortness of Breath Cardiac (ROS): No: Chest Pain ABD/GI: Yes: Nausea, Vomiting, Other (Upper quadrant abdominal pain). No: Constipated, Diarrhea Neurological: No: Numbness, Tingling *Physical Exam - Vital Signs Last Vital Signs Temp Pulse Resp BP Pulse Ox 99.2 F 70 14 147/99 100 12/19/16 02:44 12/19/16 02:44 12/19/16 02:44 12/19/16 02:44 12/19/16 02:44 - Physical Exam General Appearance: Yes: Nourished, Mild Distress HEENT: positive: Normal Voice, Other (mucous membranes are dry) Respiratory/Chest: positive: Lungs Clear, Normal Breath Sounds. negative: Chest Tender Cardiovascular: positive: Regular Rhythm, Regular Rate, S1, S2 Gastrointestinal/Abdominal: positive: Flat, Soft. negative: Normal Bowel Sounds (hyperactive), Tender, Protuberent, Distended, Guarding, Rebound, Tenderness Integumentary: positive: Normal Color, Dry, Warm. negative: Moist Neurologic: positive: Fully Oriented, Alert, Normal Mood/Affect, Normal Response , Motor Strength 09/29 ED Treatment Course - LABORATORY CBC & Chemistry Diagram: 12/19/16 03:10 12/19/16 03:10 - ADDITIONAL ORDERS Additional order review: 12/19/16 03:10 RBC 5.36 H MCV 85.1 MCHC 33.1 RDW 14.6 MPV 10.8 - Medications Given in the ED: ED Medications Discontinued Medications Generic Name Dose Route Start Last Admin Trade Name Ama PRN Reason Stop Dose Admin Ondansetron HCl 4 mg 12/19/16 02:53 12/19/16 03:13 Zofran Injection IVPUSH 12/19/16 02:54 4 mg ONCE ONE Administration Sodium Chloride 1,000 ml 12/19/16 02:53 12/19/16 03:13 Normal Saline - IV 12/19/16 02:54 1,000 ml ONCE ONE Administration Medical Decision Making - Medical Decision Making 12/19/16 04:03 The patient is a 31F with no significant PMH who presents with uncontrollable vomiting x 2 days. I have ordered basic labs and a serum test. I will monitor for results and update the patient as results come in. 12/19/16 06:37 Patient was feeling better. Decided to try a PO challenge and began vomiting everything she drank. My attending has ordered Reglan and we will monitor for results.
[2016-12-19 04:56] LABS: ALK PHOS 62 U/L (45-117); SGOT/AST 38 U/L (15-37)
[2016-12-19] MEDS ORDERED: METOCLOPRAMIDE HCL INJECTION 10 MG/2 ML VIAL IVPUSH ONE (06:37)
[2016-12-19] MEDS ORDERED: METOCLOPRAMIDE HCL INJECTION 10 MG/2 ML VIAL ONE (06:52)
--- NOTE | 2016-12-19 09:46 | PDOC ---
*Physical Exam - Vital Signs Last Vital Signs Temp Pulse Resp BP Pulse Ox 99.1 F 80 18 116/73 99 12/19/16 08:23 12/19/16 08:23 12/19/16 08:23 12/19/16 08:23 12/19/16 08:23 - Physical Exam General Appearance: Yes: Nourished, Appropriately Dressed HEENT: positive: EOMI, RAYMOND Neck: positive: Trachea midline, Supple Respiratory/Chest: positive: Lungs Clear, Normal Breath Sounds Cardiovascular: positive: Regular Rhythm, Regular Rate, S1, S2 Gastrointestinal/Abdominal: positive: Flat, Soft Integumentary: positive: Normal Color, Dry, Warm ED Treatment Course - LABORATORY CBC & Chemistry Diagram: 12/19/16 03:10 12/19/16 03:10 - ADDITIONAL ORDERS Additional order review: Laboratory Results 12/19/16 12/19/16 03:10 03:10 Sodium 140 Potassium 4.6 Chloride 103 Carbon Dioxide 25 Anion Gap 12 BUN 20 H D Creatinine 0.8 Creat Clearance w eGFR > 60 Random Glucose 126 H D Calcium 9.7 Total Bilirubin 0.9 D AST 38 H ALT 31 D Alkaline Phosphatase 62 Total Protein 7.8 Albumin 4.7 Lipase 89 Serum , Qual Negative 12/19/16 03:10 RBC 5.36 H MCV 85.1 MCHC 33.1 RDW 14.6 MPV 10.8 - Medications Given in the ED: ED Medications Discontinued Medications Generic Name Dose Route Start Last Admin Trade Name Cesarioq PRN Reason Stop Dose Admin Metoclopramide HCl 10 mg 12/19/16 06:37 12/19/16 07:00 Reglan Injection - IVPUSH 12/19/16 06:38 10 mg ONCE ONE Administration Ondansetron HCl 4 mg 12/19/16 02:53 12/19/16 03:13 Zofran Injection IVPUSH 12/19/16 02:54 4 mg ONCE ONE Administration Ondansetron HCl 4 mg 12/19/16 06:35 12/19/16 06:51 Zofran Injection IVPUSH 12/19/16 06:36 Not Given ONCE ONE Sodium Chloride 1,000 ml 12/19/16 02:53 12/19/16 03:13 Normal Saline - IV 12/19/16 02:54 1,000 ml ONCE ONE Administration Sodium Chloride 1,000 ml 12/19/16 03:51 12/19/16 04:00 Normal Saline - IV 12/19/16 03:52 1,000 ml ONCE ONE Administration Sodium Chloride 1,000 ml 12/19/16 07:29 12/19/16 07:51 Normal Saline - IV 12/19/16 07:30 1,000 ml ONCE ONE Administration Medical Decision Making - Medical Decision Making 12/19/16 09:44 Patient signed out from Drs. Mcintosh (attending) and Dread (resident) Patient is a 31 y.o. female who presented to the ED on 12/19 c/o acute onset of vomiting (yellow, non-bloody, non-bilous) likely 2/2 to [place]ic food. Patient was started on Zofran and IV fluids and later given Raglan when her vomiting continued. Following successful PO challenge, patient was discharged home with Zofran and instructions to increase fluid intake. *DC/Admit/Observation/Transfer Diagnosis at time of Disposition: Vomiting alone - Discharge Dispostion Disposition: HOME Condition at time of disposition: Improved Admit: No - Prescriptions Prescriptions: Ondansetron HCl [Zofran] 4 mg PO BID #12 tablet - Patient Instructions Printed Discharge Instructions: DI for Vomiting -- Adult Additional Instructions: Please return to the ED should your vomiting return, or should you experience fever, chills, chest pain or shortness of breath. - Attestations Physician Attestion: 12/19/16 09:48 I, Dr. Eva Cancino, attest that this document has been prepared under my direction and personally reviewed by me in its entirety. I further attest, that it accurately reflects all work, treatment, procedures and medical decision -making performed by me.
[2016-12-19 10:00] VITALS: BP 136/89; PULSE 88; TEMP 98.2
== END 2016-12-19 10:09 | disposition home or self-care (01) ==
LOC: JER 02:29
PROC: 3E033GC Introduction of Other Therapeutic Substance into Peripheral Vein, Percutaneous Approach (ICD-10-PCS; principal; 2016-12-19)
DX: R11.10 Vomiting, unspecified (principal)
CPT/HCPCS: 36415; 80053; 83690; 84703; 85027; 96374; 96375; 99283-25

== ENCOUNTER 2017-10-01 03:14 | Emergency (ER) | payer OTHER ==
[2017-10-01] MEDS ORDERED: ONDANSETRON 4 MG/2 ML VIAL ONE (03:29)
[2017-10-01 03:31] VITALS: BP 136/74; PULSE 74; TEMP 96.9; BMI 25.4
--- NOTE | 2017-10-01 04:43 | PDOC ---
History of Present Illness - General History Source: Patient Exam Limitations: No Limitations - History of Present Illness Initial Comments: 10/01/17 04:53 The patient is a 31 year old female with no significant past medical history who presents to the ED with complaints of vomiting and abdominal pain for one day. Patient reports she went out to drink around 5pm on Sunday. Patient reports a sudden onset of multiple episodes of nausea and nonbilious nonbloody vomiting Sunday morning. She states she cannot eat or drink secondary to vomiting. She also reports chills and generalized abdominal cramping associated with present symptoms. Patient reports similar symptoms in the past. Denies recent sick contacts. Denies fever. Denies chest pain or shortness of breath. Denies diarrhea. Denies any other symptoms. <Georgina Trevizo - Last Filed: 10/01/17 04:53> <Maryellen Mcleod - Last Filed: 10/01/17 06:32> - General Chief Complaint: Nausea/Vomiting Stated Complaint: NAUSEA/VOMITING Time Seen by Provider: 10/01/17 03:29 Past History <Georgina Trevizo - Last Filed: 10/01/17 04:53> - Past Medical History Asthma: No Cancer: No Cardiac Disorders: No COPD: No Diabetes: No HTN: No Seizures: No Thyroid Disease: No Other medical history: Pt denies - Immunization History Immunization Up to Date: Yes - Suicide/Smoking/Psychosocial Hx Smoking History: Never smoked Have you smoked in the past 12 months: No Number of Cigarettes Smoked Daily: 3 If you are a former smoker, when did you quit?: patient smokes marijuana occasionally Information on smoking cessation initiated: No 'Breaking Loose' booklet given: 08/27/16 Hx Alcohol Use: No Drug/Substance Use Hx: No Substance Use Type: None Hx Substance Use Treatment: No <Maryellen Mcleod - Last Filed: 10/01/17 06:32> - Past Medical History Allergies/Adverse Reactions: Allergies Allergy/AdvReac Type Severity Reaction Status Date / Time No Known Allergies Allergy Verified 10/01/17 03:25 Home Medications: Ambulatory Orders NK [No Known Home Medication] 10/01/17 Review of Systems - Review of Systems Able to Perform ROS?: Yes Comments:: 10/01/17 04:53 CONSTITUTIONAL: + chills Absent: fever, diaphoresis, generalized weakness, malaise, loss of appetite HEENT: Absent: rhinorrhea, nasal congestion, throat pain, throat swelling, difficulty swallowing, mouth swelling, ear pain, eye pain, visual Changes CARDIOVASCULAR: Absent: chest pain, syncope, palpitations, irregular heart rate, lightheadedness , peripheral edema RESPIRATORY: Absent: cough, shortness of breath, dyspnea with exertion, orthopnea, wheezing, stridor, hemoptysis GASTROINTESTINAL: + abdominal pain, nausea, vomiting Absent: abdominal distension, diarrhea, constipation, melena, hematochezia GENITOURINARY: Absent: dysuria, frequency, urgency, hesitancy, hematuria, flank pain, genital pain MUSCULOSKELETAL: Absent: myalgia, arthralgia, joint swelling SKIN: Absent: rash, itching, pallor HEMATOLOGIC/IMMUNOLOGIC: Absent: easy bleeding, easy bruising, lymphadenopathy, frequent infections ENDOCRINE: Absent: unexplained weight gain, unexplained weight loss, heat intolerance, cold intolerance NEUROLOGIC: Absent: headache, focal weakness or paresthesias, dizziness, unsteady gait, seizure, mental status changes, bladder or bowel incontinence PSYCHIATRIC: Absent: anxiety, depression, suicidal or homicidal ideation, hallucinations. All Other Systems: Reviewed and Negative <Georgina Trevizo - Last Filed: 10/01/17 04:53> *Physical Exam - Vital Signs Last Vital Signs Temp Pulse Resp BP Pulse Ox 96.9 F L 74 20 136/74 99 10/01/17 03:22 10/01/17 03:22 10/01/17 03:22 10/01/17 03:22 10/01/17 03:22 - Physical Exam Comments: 10/01/17 04:53 GENERAL: Well developed, well nourished. Awake and alert. No acute distress. HEENT: Normocephalic, atraumatic. PERRLA, EOMI. No conjunctival pallor. Sclera are non- icteric. Moist mucous membranes. Oropharynx is clear. NECK: Supple. Full ROM. No JVD. Carotid pulses 2+ and symmetric, without bruits. No thyromegaly. No lymphadenopathy. CARDIOVASCULAR: Regular rate and rhythm. No murmurs, rubs, or gallops. Distal pulses are 2+ and symmetric. PULMONARY: No evidence of respiratory distress. Lungs clear to auscultation bilaterally. No wheezing, rales or rhonchi. ABDOMINAL: Soft. Non-tender. Non-distended. No rebound or guarding. No organomegaly. Normoactive bowel sounds. MUSCULOSKELETAL Normal range of motion at all joints. No bony deformities or tenderness. No CVA tenderness. EXTREMITIES: No cyanosis. No clubbing. No edema. No calf tenderness. SKIN: Warm and dry. Normal capillary refill. No rashes. No jaundice. NEUROLOGICAL: Alert, awake, appropriate. Cranial nerves 2-12 intact. No deficits to light touch and temperature in face, upper extremities and lower extremities. No motor deficits in the in face, upper extremities and lower extremities. Normoreflexic in the upper and lower extremities. Normal speech. Toes are down- going bilaterally. Gait is normal without ataxia. PSYCHIATRIC: Cooperative. Good eye contact. Appropriate mood and affect. <Georgina Trevizo - Last Filed: 10/01/17 04:53> - Vital Signs Last Vital Signs Temp Pulse Resp BP Pulse Ox 96.9 F L 74 20 136/74 99 10/01/17 03:22 10/01/17 03:22 10/01/17 03:22 10/01/17 03:22 10/01/17 03:22 <Maryellen Mcleod - Last Filed: 10/01/17 06:32> ED Treatment Course - LABORATORY CBC & Chemistry Diagram: 10/01/17 05:07 10/01/17 05:07 <Maryellen cMleod - Last Filed: 10/01/17 06:32> Medical Decision Making - Medical Decision Making 10/01/17 06:31 Pt comes with viral gastroenteritis. SHe was out drinking 2 days ago and she has been vomtiing. Afebrile and VSS. Pt hydrated and her labs are normal. No abd tenderness and no flank tenderness. Pt stable for discharge home. <Maryellen Mcleod - Last Filed: 10/01/17 06:32> *DC/Admit/Observation/Transfer - Attestations Scribe Attestion: 10/01/17 04:54 Documentation prepared by Georgina Trevizo, acting as medical record transcriber for Maryellen Mcleod MD <Georgina Trevizo - Last Filed: 10/01/17 04:53> - Discharge Dispostion Admit: No <Maryellen Mcleod - Last Filed: 10/01/17 06:32> Diagnosis at time of Disposition: Viral gastroenteritis - Discharge Dispostion Disposition: HOME Condition at time of disposition: Improved - Referrals Referrals: Aissatou Alcocer MD [Primary Care Provider] - - Patient Instructions Printed Discharge Instructions: Viral Gastroenteritis - Post Discharge Activity Forms/Work/School Notes: Back to Work
[2017-10-01] MEDS ORDERED: SODIUM CHLORIDE 0.9% 500 ML INFUS.BAG IV ONE (04:51)
[2017-10-01] MEDS ORDERED: FAMOTIDINE 20 MG/50 ML IVPB 20 MG/50 ML MG IVPB ONE ×2 (04:52→05:17)
[2017-10-01 05:14] LABS: BASO % 0.5 % (0-2.0); HEMATOCRIT 43.6 % (32.4-45.2); HEMOGLOBIN 15.1 GM/dL (10.7-15.3); LYMPH % 13.9 % (8-40); MCH 29.6 pg (25.7-33.7); MCHC 34.6 g/dl (32.0-36.0); MEAN CELL VOLUME 85.6 fl (80-96); MEAN PLT VOLUME 10.1 fl (7.5-11.1); NEUT % 76.6 % (42.8-82.8); PLATELET COUNT 246 K/MM3 (134-434); RBC 5.09 M/mm3 (3.60-5.2); WHITE BLOOD COUNT 14.6 K/mm3 (4.0-10.0)
[2017-10-01 05:53] LABS: ALBUMIN 4.7 g/dl (3.4-5.0); ALK PHOS 65 U/L (45-117); ANION GAP 13 (8-16); BILIRUBIN,TOTAL 0.7 mg/dL (0.2-1.0); BLOOD UREA NITROGEN 21 mg/dL (7-18); CALCIUM 9.5 mg/dL (8.5-10.1); CHLORIDE 103 mmol/L (98-107); CO2 28 mmol/L (21-32); CREATININE 0.7 mg/dL (0.55-1.02); GLUCOSE,RANDOM 114 mg/dL (74-106); SGPT/ALT 27 U/L (12-78); SODIUM 144 mmol/L (136-145)
[2017-10-01 06:00] LABS: SGOT/AST 37 U/L (15-37)
== END 2017-10-01 06:40 | disposition home or self-care (01) ==
LOC: JER 03:14
PROC: 3E033GC Introduction of Other Therapeutic Substance into Peripheral Vein, Percutaneous Approach (ICD-10-PCS; principal; 2017-10-01)
DX: A08.4 Viral intestinal infection, unspecified (principal); B97.89 Other viral agents as the cause of diseases classified elsewhere
CPT/HCPCS: 36415; 80053; 83690; 85025; 96365; 99282-25

== ENCOUNTER 2017-12-07 07:07 | Emergency (ER) | payer OTHER ==
[2017-12-07 07:37] VITALS: TEMP 98.4; BMI 28.1
[2017-12-07] MEDS ORDERED: SODIUM CHLORIDE 1,000 ML IV STA ×2 (07:56)
[2017-12-07] MEDS ORDERED: ONDANSETRON 4 MG/2 ML VIAL IVPB ONE (07:56)
--- NOTE | 2017-12-07 07:59 | PDOC ---
History of Present Illness - General Chief Complaint: Nausea/Vomiting Stated Complaint: VOMITING Time Seen by Provider: 12/07/17 07:17 - History of Present Illness Initial Comments: 12/07/17 09:01 32 F with no PMH presents to ED with N+V x 1 week. Pt states that she has had inability to tolerate any PO. Reports several episodes of greenish vomit per day. Denies F/C. Endorses upper abdominal cramps with vomiting. Denies lower abdominal pain. Denies dysuria. Denies vaginal bleeding or discharge. Pt states that she has had hyperemesis gravidarum in the past. LMP was 4 weeks ago and is sexually active. Pt denies surgical history. Endorses frequent marijuana use. last use was 1 week ago. Denies ETOH use. Past History - Past Medical History Allergies/Adverse Reactions: Allergies Allergy/AdvReac Type Severity Reaction Status Date / Time No Known Allergies Allergy Verified 12/07/17 07:34 Home Medications: Ambulatory Orders Ondansetron [Ondansetron Odt] 4 mg PO TID PRN #30 tab.rapdis 12/07/17 Asthma: No Cancer: No Cardiac Disorders: No COPD: No Diabetes: No HTN: No Seizures: No Thyroid Disease: No - Immunization History Immunization Up to Date: Yes - Suicide/Smoking/Psychosocial Hx Smoking History: Never smoked Have you smoked in the past 12 months: No Number of Cigarettes Smoked Daily: 4 If you are a former smoker, when did you quit?: patient smokes marijuana occasionally Information on smoking cessation initiated: No 'Breaking Loose' booklet given: 08/27/16 Hx Alcohol Use: No Drug/Substance Use Hx: No Substance Use Type: Marijuana Hx Substance Use Treatment: No Review of Systems - Review of Systems Comments:: 12/07/17 07:58 "GENERAL/CONSTITUTIONAL: No fever or chills. No weakness. HEAD, EYES, EARS, NOSE AND THROAT: No change in vision. No ear pain or discharge. No sore throat. CARDIOVASCULAR: No chest pain or shortness of breath. RESPIRATORY: No cough, wheezing, or hemoptysis. GASTROINTESTINAL: + nausea and vomiting, no diarrhea or constipation. GENITOURINARY: No dysuria, frequency, or change in urination. MUSCULOSKELETAL: No joint or muscle swelling or pain. No neck or back pain. SKIN: No rash NEUROLOGIC: No headache, vertigo, loss of consciousness, or change in strength/ sensation. ENDOCRINE: No increased thirst. No abnormal weight change. HEMATOLOGIC/LYMPHATIC: No anemia, easy bleeding, or history of blood clots. ALLERGIC/IMMUNOLOGIC: No hives or skin allergy. " *Physical Exam - Vital Signs Last Vital Signs Temp Pulse Resp BP Pulse Ox 98.4 F 100 H 16 102/64 100 12/07/17 07:07 12/07/17 07:07 12/07/17 07:07 12/07/17 07:07 12/07/17 07:07 - Physical Exam Comments: 12/07/17 07:58 "GENERAL: Awake, alert, and fully oriented, in no acute distress. HEAD: No signs of trauma EYES: PERRLA, EOMI, sclera anicteric, conjunctiva clear ENT: Auricles normal inspection, hearing grossly normal, nares patent, oropharynx clear without exudates. Moist mucosa NECK: Nontender, no stepoffs, Normal ROM, supple, no lymphadenopathy, JVD, or masses LUNGS: Breath sounds equal, clear to auscultation bilaterally. No wheezes, and no crackles HEART: Regular rate and rhythm, normal S1 and S2, no murmurs, rubs or gallops ABDOMEN: + RUQ tenderness, normoactive bowel sounds. No guarding, no rebound. No masses EXTREMITIES: Normal range of motion, no edema. No clubbing or cyanosis. No cords, erythema, or tenderness NEUROLOGICAL: Cranial nerves II through XII intact. 5/5 strength and sensation in all extremities, Normal speech, normal gait, normal cerebellar function SKIN: Warm, Dry, normal turgor, no rashes or lesions noted. " ED Treatment Course - LABORATORY CBC & Chemistry Diagram: 12/07/17 08:18 12/07/17 08:18 - RADIOLOGY Radiology Studies Ordered: Category Date Time Status ABDOMEN US [US] Stat Ultrasound 12/07/17 07:55 Ordered Medical Decision Making - Medical Decision Making 12/07/17 07:57 32 F with RUQ pain and N+V. Concerning for acute dewayne. Also consider pancreatitis. Pt admits to frequent marijuana use, so possible cannabanoid hyperemesis. Will r/o as well given pt's history of hyperemesis grav. - Labs, UA, UPT - RUQ sono - IVF, zofran, pepcid 12/07/17 08:57 UPT + Pt states LMP was 4 weeks ago, quant HCG sent 12/07/17 11:13 US of abdomen unremarkable. TVUS shows twin IUPs 12/07/17 11:20 Pt reassessed - states her nausea has resolved. Now able to tolerate PO fluids without vomiting. Abdominal exam benign, with no tenderness. Pt is well appearing, with normal vitals. Clinically stable for DC at this time. I discussed the physical exam findings, ancillary test results and final diagnoses with the patient. I answered all of the patient's questions. The patient was satisfied with the care received and felt comfortable with the discharge plan and treatment plan. The patient agrees to follow up with the primary care physician within 24-72 hours. *DC/Admit/Observation/Transfer Diagnosis at time of Disposition: , Hyperemesis gravidarum, Vomiting - Discharge Dispostion Disposition: HOME - Prescriptions Prescriptions: Ondansetron [Ondansetron Odt] 4 mg PO TID PRN #30 tab.rapdis PRN Reason: Nausea And/Or Vomiting - Referrals Referrals: Ayan Coley MD [Staff Physician] - - Patient Instructions Printed Discharge Instructions: DI for Hyperemesis Gravidarum Additional Instructions: You are with twins according to the ultrasound you had today. Take the ondansetron as needed for nausea and vomiting. Be sure to follow up with your OB within 1 week for further evaluation. If you are unable to see yours, call the number provided to follow up with our OB. If you experience any worsening nausea, vomiting, fevers, abdominal pain, vaginal bleeding or discharge, or any other concerning symptoms, return to the ER immediately. - Post Discharge Activity - Attestations Physician Attestion: 12/07/17 11:36 I, Dr. Kodak Ramírez MD, attest that this document has been prepared under my direction and personally reviewed by me in its entirety. I further attest, that it accurately reflects all work, treatment, procedures and medical decision -making performed by me.
[2017-12-07] MEDS ORDERED: ONDANSETRON 4 MG/2 ML VIAL ONE (08:06)
[2017-12-07 08:38] LABS: BASO % 0.2 % (0-2.0); HEMATOCRIT 42.3 % (32.4-45.2); HEMOGLOBIN 14.2 GM/dL (10.7-15.3); MCH 28.9 pg (25.7-33.7); MCHC 33.6 g/dl (32.0-36.0); MEAN CELL VOLUME 85.9 fl (80-96); MEAN PLT VOLUME 10.2 fl (7.5-11.1); MONO % 2.4 % (3.8-10.2); NEUT % 93.4 % (42.8-82.8); PLATELET COUNT 245 K/MM3 (134-434); RBC 4.92 M/mm3 (3.60-5.2); RDW 13.7 % (11.6-15.6); WHITE BLOOD COUNT 14.3 K/mm3 (4.0-10.0)
[2017-12-07] MEDS ORDERED: FAMOTIDINE 20 MG/50 ML IVPB 20 MG/50 ML MG IVPB ONE ×2 (08:38→09:00)
--- NOTE | 2017-12-07 08:43 | EKG ---
Test Reason : Blood Pressure : / mmHG Vent. Rate : 065 BPM Atrial Rate : 065 BPM P-R Int : 114 ms QRS Dur : 090 ms QT Int : 410 ms P-R-T Axes : 052 028 034 degrees QTc Int : 426 ms NORMAL SINUS RHYTHM WITH SINUS ARRHYTHMIA NONSPECIFIC T WAVE ABNORMALITY ABNORMAL ECG WHEN COMPARED WITH ECG OF 31-JAN-2016 05:52, NO SIGNIFICANT CHANGE WAS FOUND Confirmed by LOGAN HERNANDEZ MD ([id number]) on 12/07/2017 8:43:05 AM Referred By: Confirmed By:LOGAN HERNANDEZ MD
[2017-12-07 08:52] LABS: HCG,QUALITATIVE URINE POSITIVE
[2017-12-07 08:53] LABS: ALBUMIN 4.1 g/dl (3.4-5.0); ANION GAP 11 (8-16); BLOOD UREA NITROGEN 14 mg/dL (7-18); CALCIUM 9.8 mg/dL (8.5-10.1); CHLORIDE 102 mmol/L (98-107); CO2 26 mmol/L (21-32); CREATININE 0.8 mg/dL (0.55-1.02); GLUCOSE,RANDOM 160 mg/dL (74-106); LIPASE 53 U/L (73-393); SGPT/ALT 20 U/L (12-78); SODIUM 139 mmol/L (136-145)
[2017-12-07] MEDS ORDERED: METOCLOPRAMIDE HCL INJECTION 10 MG/2 ML VIAL IVPB ONE (08:56)
[2017-12-07 08:57] LABS: URINE APPEARANCE SLCLOUDY; URINE BILIRUBIN NEGATIVE (<2.0 mg/dL); URINE COLOR AMBER; URINE GLUCOSE (UA) 2+ (NEGATIVE); URINE KETONE 2+ (NEGATIVE); URINE LEUK ESTERASE NEGATIVE (NEGATIVE); URINE NITRITE NEGATIVE (NEGATIVE); URINE PROTEIN 3+ (NEGATIVE); URINE UROBILINOGEN NEGATIVE mg/dL (0.2-1.0)
[2017-12-07 09:05] LABS: EPI CELLS MODERATE /HPF (FEW); URINE MUCUS MANY
[2017-12-07 09:10] LABS: ALK PHOS 53 U/L (45-117); BILIRUBIN,TOTAL 0.6 mg/dL (0.2-1.0); TOT PROT 7.8 g/dl (6.4-8.2)
[2017-12-07 09:12] LABS: POTASSIUM 3.9 mmol/L (3.5-5.1)
[2017-12-07 09:13] LABS: SGOT/AST 26 U/L (15-37)
[2017-12-07] MEDS ORDERED: METOCLOPRAMIDE HCL INJECTION 10 MG/2 ML VIAL ONE (09:58)
[2017-12-07 12:15] VITALS: BP 131/80; PULSE 80
[2017-12-07 13:00] LABS: ACANTHOCYTES 0; ANISOCYTOSIS 0; HELMET CELLS 0; HOWELL-JOLLY BODIES 0; MACROCYTOSIS 0; OVALOCYTE 0; PLATELET ESTIMATE NORMAL; ROULEAU 0; SICKELED CELLS 0; TARGET CELLS 0; TEAR DROP CELLS 0; TOXIC GRANULATION 0
== END 2017-12-07 12:16 | disposition home or self-care (01) ==
LOC: JER 07:07
PROC: 3E033GC Introduction of Other Therapeutic Substance into Peripheral Vein, Percutaneous Approach (ICD-10-PCS; principal; 2017-12-07)
PROC: 3E033GC Introduction of Other Therapeutic Substance into Peripheral Vein, Percutaneous Approach (ICD-10-PCS; 2017-12-07)
DX: O26.891 Other specified pregnancy related conditions, first trimester (principal); O21.0 Mild hyperemesis gravidarum; Z3A.01 Less than 8 weeks gestation of pregnancy
CPT/HCPCS: 36415; 76700-TC; 76830-TC; 80053; 81003; 81015; 83690; 84702; 84703; 85025; 87086; 87186; 93005; 93010; 96365; 96375; 99283-25; J7030

== ENCOUNTER 2017-12-08 19:49 | Emergency (ER) | payer OTHER ==
[2017-12-08 19:54] VITALS: BMI 26.6
--- NOTE | 2017-12-08 20:03 | PDOC ---
History of Present Illness - General History Source: Patient Exam Limitations: No Limitations - History of Present Illness Initial Comments: 12/08/17 20:59 Patient is a 32 year old female, 6 weeks , A1, with no significant past medical history who presents to the ED with complaints of vomiting that began sunday afternoon. Patient reports experiencing multiple episodes of vomiting since Sunday as well as associated symptoms of nausea, head pain, and general body aches. She reports coming into the ED yesterday for similar symptoms when she states she was made aware that she is 6 weeks with twins after having blood work and an ultrasound. Patient reports laying down this afternoon when she noticed small amounts of blood present. She reports experiencing vaginal bleeding immediately following urinating, prompting her to come into the ED for further evaluation. Denies chest pain, Sob. Denies nausea, vomiting. Denies contact with sick individuals, out of state travelling. Deneis fevers, chills. Denies any other symptoms. Allergies: None Social history: No smoking. No alcohol. No illicit drugs. Surgical history: None PMD: None <Augusto Perez - Last Filed: 12/08/17 20:59> <Maryellen Mcleod - Last Filed: 12/09/17 20:37> - General Chief Complaint: Vaginal Bleeding Stated Complaint: VAGINAL BLEEDING 6 WEEKS Time Seen by Provider: 12/08/17 20:03 Past History <Augusto Perez - Last Filed: 12/08/17 20:59> - Past Medical History Asthma: No Cancer: No Cardiac Disorders: No COPD: No Diabetes: No HTN: No Seizures: No Thyroid Disease: No - Immunization History Immunization Up to Date: Yes - Suicide/Smoking/Psychosocial Hx Smoking History: Never smoked Have you smoked in the past 12 months: No Number of Cigarettes Smoked Daily: 3 If you are a former smoker, when did you quit?: patient smokes marijuana occasionally Information on smoking cessation initiated: No 'Breaking Loose' booklet given: 08/27/16 Hx Alcohol Use: No Drug/Substance Use Hx: No Substance Use Type: None Hx Substance Use Treatment: No <Maryellen Mcleod - Last Filed: 12/09/17 20:37> - Past Medical History Allergies/Adverse Reactions: Allergies Allergy/AdvReac Type Severity Reaction Status Date / Time No Known Allergies Allergy Verified 12/08/17 19:51 Home Medications: Ambulatory Orders Ondansetron [Ondansetron Odt] 4 mg PO TID PRN #30 tab.rapdis 12/07/17 Metoclopramide HCl [Reglan] 10 mg PO TID #15 tablet 12/08/17 Nitrofurantoin Monohyd/M-Cryst [Macrobid -] 100 mg PO BID #14 capsule 12/08/17 Cephalexin [Keflex] 500 mg PO QID #40 capsule 12/09/17 *Physical Exam - Vital Signs Last Vital Signs Temp Pulse Resp BP Pulse Ox 99.1 F 73 18 137/75 100 12/08/17 19:52 12/08/17 19:52 12/08/17 19:52 12/08/17 19:52 12/08/17 19:52 <Augusto Perez - Last Filed: 12/08/17 20:59> - Vital Signs Last Vital Signs Temp Pulse Resp BP Pulse Ox 99.1 F 73 18 137/75 100 12/08/17 19:52 12/08/17 19:52 12/08/17 19:52 12/08/17 19:52 12/08/17 19:52 <Maryellen Mcleod - Last Filed: 12/09/17 20:37> ED Treatment Course - LABORATORY CBC & Chemistry Diagram: 12/08/17 20:20 12/08/17 20:20 - ADDITIONAL ORDERS Additional order review: Laboratory Results 12/08/17 20:20 Urine Color Yellow Urine Appearance Slcloudy Urine pH 9.0 H D Ur Specific [place] 1.027 Urine Protein 2+ H Urine Glucose (UA) Negative Urine Ketones 2+ H Urine Blood 2+ H Urine Nitrite Negative Urine Bilirubin Negative Urine Urobilinogen 2.0 H Ur Leukocyte Esterase Negative 12/08/17 20:20 RBC 4.95 MCV 84.8 MCHC 33.5 RDW 13.7 MPV 10.4 Neutrophils % 80.5 Lymphocytes % 12.4 D Monocytes % 6.5 D Eosinophils % 0.0 Basophils % 0.6 - Medications Given in the ED: ED Medications Discontinued Medications Generic Name Dose Route Start Last Admin Trade Name Freq PRN Reason Stop Dose Admin Lactated Ringer's 1,000 ml 12/08/17 20:30 12/08/17 20:35 Lactated Ringers Solution IV 12/08/17 20:31 1,000 ml NOW ONE Administration <Augusto Perez - Last Filed: 12/08/17 20:59> - LABORATORY CBC & Chemistry Diagram: 12/08/17 20:20 12/08/17 20:20 <Maryellen Mcleod - Last Filed: 12/09/17 20:37> Medical Decision Making - Medical Decision Making 12/09/17 07:02 Pt found out yesterday that she was . She came to out ER for emesis and found out she was . SONO done and complete workup. 12/09/17 20:36 Pt is known AB positive blood type. She was hydrated; labs are normal. HB/HCT stable. Pt's HCG is upward trending. She is feeling better. Nausea controlled and she was discharged home. <Maryellen Mcleod - Last Filed: 12/09/17 20:37> *DC/Admit/Observation/Transfer <Augusto Perez - Last Filed: 12/08/17 20:59> <Maryellen Mcleod - Last Filed: 12/09/17 20:37> Diagnosis at time of Disposition: Hyperemesis gravidarum, UTI (urinary tract infection) during - Discharge Dispostion Disposition: HOME Condition at time of disposition: Stable - Prescriptions Prescriptions: Cephalexin [Keflex] 500 mg PO QID #40 capsule Metoclopramide HCl [Reglan] 10 mg PO TID #15 tablet Nitrofurantoin Monohyd/M-Cryst [Macrobid -] 100 mg PO BID #14 capsule - Patient Instructions Printed Discharge Instructions: DI for Urinary Tract Infection (UTI), DI for Hyperemesis Gravidarum
[2017-12-08] MEDS ORDERED: LACTATED RINGERS SOLUTION 1000 ML INFUS.BAG IV ONE (20:30)
[2017-12-08 20:51] LABS: BASO % 0.6 % (0-2.0); HEMOGLOBIN 14.1 GM/dL (10.7-15.3); LYMPH % 12.4 % (8-40); MCH 28.5 pg (25.7-33.7); MCHC 33.5 g/dl (32.0-36.0); MEAN CELL VOLUME 84.8 fl (80-96); MEAN PLT VOLUME 10.4 fl (7.5-11.1); MONO % 6.5 % (3.8-10.2); NEUT % 80.5 % (42.8-82.8); PLATELET COUNT 250 K/MM3 (134-434); RBC 4.95 M/mm3 (3.60-5.2); RDW 13.7 % (11.6-15.6); WHITE BLOOD COUNT 14.9 K/mm3 (4.0-10.0)
[2017-12-08 20:52] LABS: URINE APPEARANCE SLCLOUDY; URINE BILIRUBIN NEGATIVE (<2.0 mg/dL); URINE COLOR YELLOW; URINE GLUCOSE (UA) NEGATIVE (NEGATIVE); URINE KETONE 2+ (NEGATIVE); URINE LEUK ESTERASE NEGATIVE (NEGATIVE); URINE NITRITE NEGATIVE (NEGATIVE)
[2017-12-08 20:56] LABS: URINE PROTEIN 2+ (NEGATIVE)
[2017-12-08 21:00] LABS: EPI CELLS RARE /HPF (FEW); URINE MUCUS FEW
[2017-12-08 21:11] LABS: ALBUMIN 4.1 g/dl (3.4-5.0); ANION GAP 12 (8-16); BILIRUBIN,TOTAL 0.4 mg/dL (0.2-1.0); BLOOD UREA NITROGEN 12 mg/dL (7-18); CALCIUM 9.3 mg/dL (8.5-10.1); CHLORIDE 104 mmol/L (98-107); CO2 26 mmol/L (21-32); CREATININE 0.7 mg/dL (0.55-1.02); GLUCOSE,RANDOM 105 mg/dL (74-106); POTASSIUM 3.3 mmol/L (3.5-5.1); SGOT/AST 18 U/L (15-37); SGPT/ALT 20 U/L (12-78); SODIUM 142 mmol/L (136-145); TOT PROT 7.2 g/dl (6.4-8.2)
[2017-12-08 21:12] LABS: ALK PHOS 56 U/L (45-117)
[2017-12-08 21:13] LABS: ACETONE SERUM NEGATIVE (NEGATIVE)
[2017-12-08] MEDS ORDERED: NITROFURANTOIN MACROCRYSTAL 50 MG CAPSULE (FP) PO SCH (22:15)
[2017-12-08] MEDS ORDERED: NITROFURANTOIN MACROCRYSTAL 50 MG CAPSULE (FP) ONE (22:28)
[2017-12-08] MEDS ORDERED: METOCLOPRAMIDE HCL INJECTION 10 MG/2 ML VIAL IVPUSH ONE (22:31)
[2017-12-08] MEDS ORDERED: METOCLOPRAMIDE HCL INJECTION 10 MG/2 ML VIAL ONE (22:41)
[2017-12-08] MEDS ORDERED: ONDANSETRON *ODT* 4 MG TABLET SL ONE (23:23)
[2017-12-08] MEDS ORDERED: ONDANSETRON 8 MG TABLET (FP) PO ONE (23:41)
[2017-12-08 23:53] VITALS: BP 124/71; PULSE 83; TEMP 98.2
--- NOTE | 2017-12-09 07:56 | PDOC ---
Patient Follow-up (Call Back) - Post ED Follow - Up Reason for Call Back: Abnwl. Microbiology (Patient is currently . Patient currently on Macrobid will not be proper coverage for group B strep. Called the left message at [phone] to call back so that I may change her antibiotics either to amoxicillin or Keflex.) <Stephany Mcelroy - Last Filed: 12/09/17 07:55> - Disposition Additional Instructions/Notes: d/w pt and changed abx to keflex DC <Chauncey Mcdonnell - Last Filed: 12/09/17 11:06> - Post ED Follow - Up Condition at time of discharge: Stable Disposition at time of original discharge: HOME
== END 2017-12-08 23:51 | disposition home or self-care (01) ==
LOC: JER 19:49
PROC: 3E033GC Introduction of Other Therapeutic Substance into Peripheral Vein, Percutaneous Approach (ICD-10-PCS; principal; 2017-12-08)
PROC: 3E033GC Introduction of Other Therapeutic Substance into Peripheral Vein, Percutaneous Approach (ICD-10-PCS; 2017-12-08)
DX: O26.892 Other specified pregnancy related conditions, second trimester (principal); O21.0 Mild hyperemesis gravidarum; O23.41 Unspecified infection of urinary tract in pregnancy, first trimester; Z3A.01 Less than 8 weeks gestation of pregnancy
CPT/HCPCS: 36415; 80053; 81003; 81015; 82009; 84702; 85025; 96374; 96375; 99281-25; Q0162

== ENCOUNTER 2018-09-23 06:17 | Emergency (ER) | payer OTHER ==
[2018-09-23 07:07] VITALS: BMI 26.4
[2018-09-23] MEDS ORDERED: FAMOTIDINE 20 MG/50 ML IVPB 20 MG/50 ML MG IVPB ONE ×2 (07:21→07:25)
[2018-09-23] MEDS ORDERED: SODIUM CHLORIDE 1,000 ML IV STA ×2 (07:21→08:42)
[2018-09-23] MEDS ORDERED: ONDANSETRON 4 MG/2 ML VIAL IVPUSH ONE (07:22)
--- NOTE | 2018-09-23 07:22 | PDOC ---
History of Present Illness - General Chief Complaint: Nausea/Vomiting Stated Complaint: VOMITING Time Seen by Provider: 09/23/18 07:08 - History of Present Illness Initial Comments: 09/23/18 07:33 32F with no pmh presents to the ED with nbnb nausea and vomiting since Sunday. States that she ate shrimp and strawberry daiquiri on Sunday night and couldn't keep anything down ever since. She also endorses abdominal pain that she attributes to vomiting. She has multiple visits for the same symptoms that turned out to be incidental but she says that she is currently on her period. Denies fever, chills, diarrhea, dysuria. Past History - Past Medical History Allergies/Adverse Reactions: Allergies Allergy/AdvReac Type Severity Reaction Status Date / Time No Known Allergies Allergy Verified 09/23/18 06:56 Home Medications: Ambulatory Orders Ondansetron [Zofran *Odt*] 8 mg SL BID #14 od.tablet 09/23/18 Asthma: No Cancer: No Cardiac Disorders: No COPD: No Diabetes: No HTN: No Seizures: No Thyroid Disease: No - Reproductive History (#): 4 Para: 3 Spontaneous : 1 - Immunization History Immunization Up to Date: Yes - Suicide/Smoking/Psychosocial Hx Smoking History: Current every day smoker Have you smoked in the past 12 months: Yes Number of Cigarettes Smoked Daily: 5 If you are a former smoker, when did you quit?: patient smokes marijuana occasionally Information on smoking cessation initiated: No 'Breaking Loose' booklet given: 08/27/16 Hx Alcohol Use: Yes Drug/Substance Use Hx: Yes Substance Use Type: None Hx Substance Use Treatment: No Review of Systems - Review of Systems Able to Perform ROS?: Yes Is the patient limited Algerian proficient: No Constitutional: No: Symptoms Reported HEENTM: No: Symptoms Reported Respiratory: No: Symptoms reported Cardiac (ROS): No: Symptoms Reported ABD/GI: Yes: See HPI : No: Symptoms Reported Musculoskeletal: No: Symptoms Reported Integumentary: No: Symptoms Reported Neurological: No: Symptoms reported All Other Systems: Reviewed and Negative *Physical Exam - Vital Signs Last Vital Signs Temp Pulse Resp BP Pulse Ox 98 F 64 18 127/85 100 09/23/18 06:17 09/23/18 06:17 09/23/18 06:17 09/23/18 06:17 09/23/18 06:17 - Physical Exam General Appearance: Yes: Nourished, Appropriately Dressed. No: Apparent Distress HEENT: positive: EOMI, R[place], Normal ENT Inspection Respiratory/Chest: positive: Lungs Clear, Normal Breath Sounds. negative: Chest Tender, Respiratory Distress Cardiovascular: positive: Regular Rhythm, Regular Rate, S1, S2 Gastrointestinal/Abdominal: positive: Normal Bowel Sounds, Tender (epigastric), Flat, Soft Integumentary: positive: Normal Color, Dry, Warm Neurologic: positive: Fully Oriented, Alert, Normal Mood/Affect, Normal Response , Motor Strength 09/29 ED Treatment Course - LABORATORY CBC & Chemistry Diagram: 09/23/18 07:21 09/23/18 07:21 Medical Decision Making - Medical Decision Making 09/23/18 07:40 32f with nbnb vomiting since sunday morning (2 days ago) food intoxication vs vs gastroenteritis Will r/o and obtain basic labs, resplenish fluids and give zofran/ pepcid/ns 09/23/18 09:15 negative. Slight leukocytosis. Patient still vomiting. Adding reglan to regimen. 09/23/18 09:45 Patient vomiting resolved but asking for more fluid. 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 Follow up with your primary care provider. Come back to the emergency department for any new, worsening or concerning symptoms. - Post Discharge Activity
[2018-09-23] MEDS ORDERED: ONDANSETRON 4 MG/2 ML VIAL ONE (07:25)
--- NOTE | 2018-09-23 07:56 | PDOC ---
Attending Attestation - Resident Resident Name: Lacho Gutierrez - ED Attending Attestation I have performed the following: I have examined & evaluated the patient, The case was reviewed & discussed with the resident, I agree w/resident's findings & plan, Exceptions are as noted - HPI HPI: 09/23/18 07:55 Reviewed Residents HPI - Physicial Exam PE: 09/23/18 07:55 Reviewed Residents PE - Medical Decision Making 09/23/18 07:55 32 years old with no significant past medical history presents emergency department three-day history of nausea vomiting mild epigastric discomfort after eating possibly contaminated food No fever no chills no chest pain or shortness of breath on physical examination patient with very mild epigastric discomfort no rebound no guarding no peritoneal signs We'll check labs hydrate antiemetics Pepcid observe and reassess. Reevaluation status post IV fluids patient now tolerating by mouth. Labs notable for slightly elevated WBC likely secondary to viral GI illness Repeat abdominal exam benign We'll discharge home prescription for Zofran. Findings, the need for follow-up and strict return instructions discussed patient.
[2018-09-23 07:57] LABS: BASO % 0.6 % (0-2.0); HEMATOCRIT 44.6 % (32.4-45.2); HEMOGLOBIN 14.8 GM/dL (10.7-15.3); LYMPH % 9.7 % (8-40); MCH 28.4 pg (25.7-33.7); MCHC 33.1 g/dl (32.0-36.0); MEAN CELL VOLUME 85.6 fl (80-96); MEAN PLT VOLUME 10.2 fl (7.5-11.1); MONO % 5.2 % (3.8-10.2); NEUT % 84.5 % (42.8-82.8); PLATELET COUNT 271 K/MM3 (134-434); RBC 5.21 M/mm3 (3.60-5.2); RDW 14.9 % (11.6-15.6); WHITE BLOOD COUNT 13.5 K/mm3 (4.0-10.0)
[2018-09-23 08:20] LABS: ALBUMIN 4.6 g/dl (3.4-5.0); ALK PHOS 67 U/L (45-117); ANION GAP 9 MMOL/L (8-16); BILIRUBIN,TOTAL 0.4 mg/dL (0.2-1); BLOOD UREA NITROGEN 27 mg/dL (7-18); CALCIUM 10.2 mg/dL (8.5-10.1); CHLORIDE 104 mmol/L (98-107); CO2 30 mmol/L (21-32); CREATININE 1.1 mg/dL (0.55-1.3); GLUCOSE,RANDOM 130 mg/dL (74-106); POTASSIUM 3.4 mmol/L (3.5-5.1); SGOT/AST 19 U/L (15-37); SGPT/ALT 25 U/L (13-61); SODIUM 143 mmol/L (136-145); TOT PROT 8.1 g/dl (6.4-8.2)
[2018-09-23] MEDS ORDERED: ACETAMINOPHEN INJECTION 100 ML IVPB ONE (08:37)
[2018-09-23] MEDS ORDERED: ACETAMINOPHEN 1000 MG/100 ML VIAL (NON FORMULARY) IVPB ONE (08:37)
[2018-09-23] MEDS ORDERED: METOCLOPRAMIDE HCL INJECTION 10 MG/2 ML VIAL IVPUSH ONE (08:58)
[2018-09-23] MEDS ORDERED: METOCLOPRAMIDE HCL INJECTION 10 MG/2 ML VIAL ONE (09:02)
[2018-09-23] MEDS ORDERED: SODIUM CHLORIDE 0.9% 1000 ML INFUS.BAG IV ONE (09:42)
[2018-09-23 10:44] VITALS: BP 128/89; PULSE 81; TEMP 98.1
== END 2018-09-23 10:52 | disposition home or self-care (01) ==
LOC: JER 06:17
PROC: 3E0337Z Introduction of Electrolytic and Water Balance Substance into Peripheral Vein, Percutaneous Approach (ICD-10-PCS; principal; 2018-09-23)
PROC: 3E033GC Introduction of Other Therapeutic Substance into Peripheral Vein, Percutaneous Approach (ICD-10-PCS; 2018-09-23)
PROC: 3E033GC Introduction of Other Therapeutic Substance into Peripheral Vein, Percutaneous Approach (ICD-10-PCS; 2018-09-23)
PROC: 3E033GC Introduction of Other Therapeutic Substance into Peripheral Vein, Percutaneous Approach (ICD-10-PCS; 2018-09-23)
DX: R11.2 Nausea with vomiting, unspecified (principal)
CPT/HCPCS: 36415; 80053; 84703; 85025; 96361; 96365; 96375; 99283-25; J0131; J7030

== ENCOUNTER 2019-01-20 21:55 | Emergency (ER) | payer OTHER ==
[2019-01-20 22:11] VITALS: BP 129/90; PULSE 71; TEMP 98.1; BMI 28.7
[2019-01-20] MEDS ORDERED: MAG HYDROX/AL HYDROX/SIMETH 30 ML UNIT-DOSE CUP PO ONE (22:54)
[2019-01-20] MEDS ORDERED: SODIUM CHLORIDE 1,000 ML IV STA (22:54)
[2019-01-20] MEDS ORDERED: ONDANSETRON 4 MG TABLET PO PRN (22:54)
[2019-01-20] MEDS ORDERED: FAMOTIDINE 20 MG/50 ML IVPB 20 MG/50 ML MG IVPB ONE (22:54)
[2019-01-20] MEDS ORDERED: ONDANSETRON *ODT* 4 MG TABLET ONE (22:59)
[2019-01-20] MEDS ORDERED: MAG HYDROX/AL HYDROX/SIMETH 30 ML UNIT-DOSE CUP ONE (22:59)
--- NOTE | 2019-01-20 23:02 | PDOC ---
History of Present Illness - General Chief Complaint: Nausea/Vomiting Stated Complaint: VOMIT Time Seen by Provider: 01/20/19 22:40 History Source: Patient Exam Limitations: No Limitations - History of Present Illness Initial Comments: 01/20/19 22:57 Melissa Cesar is a 33F with no significant PMH here for dizziness, nausea, and vomiting. Patient was at a cookout 2 days ago and drank a lot of alcohol and smoked some cannabis. Last cannabis use on Sunday, reports daily marijuana use for the last year. Says she ate some BBQ but no one else got sick at the cookout. Stopped drinking alcohol and smoking on Sunday, woke up 4AM Sunday with nausea /vomiting, epigastric pain, and dizziness for the whole day. Vomiting mostly clear liquid with some spots of bloody sputum on Sunday only. Tried drinking Gatorade and water, just vomits it up. Says her abdominal muscles hurt from the vomiting. Poor PO intake. Denies headache, chest pain, SOB, urinary sx, constipation, diarrhea. Past History - Past Medical History Allergies/Adverse Reactions: Allergies Allergy/AdvReac Type Severity Reaction Status Date / Time No Known Allergies Allergy Verified 01/20/19 22:11 Home Medications: Ambulatory Orders NK [No Known Home Medication] 01/20/19 Asthma: No Cancer: No Cardiac Disorders: No COPD: No Diabetes: No HTN: No Seizures: No Thyroid Disease: No - Reproductive History (#): 4 Para: 3 Spontaneous : 1 - Immunization History Immunization Up to Date: Yes - Suicide/Smoking/Psychosocial Hx Smoking History: Never smoked Have you smoked in the past 12 months: Yes Number of Cigarettes Smoked Daily: 5 If you are a former smoker, when did you quit?: patient smokes marijuana occasionally 'Breaking Loose' booklet given: 08/27/16 Hx Alcohol Use: Yes Drug/Substance Use Hx: No Substance Use Type: None Hx Substance Use Treatment: No Review of Systems - Review of Systems Constitutional: No: Chills, Fever, Weakness HEENTM: No: Symptoms Reported Respiratory: No: Symptoms reported Cardiac (ROS): No: Symptoms Reported ABD/GI: Yes: Nausea, Poor Appetite, Poor Fluid Intake, Vomiting (1 day spots of blood in sputum). No: Constipated, Diarrhea : No: Symptoms Reported Musculoskeletal: No: Symptoms Reported Endocrine: No: Symptoms Reported Hematologic/Lymphatic: No: Symptoms Reported All Other Systems: Reviewed and Negative *Physical Exam - Vital Signs Last Vital Signs Temp Pulse Resp BP Pulse Ox 98.1 F 71 20 129/90 99 01/20/19 21:57 01/20/19 21:57 01/20/19 21:57 01/20/19 21:57 01/20/19 21:57 - Physical Exam General Appearance: Yes: Nourished, Appropriately Dressed, Mild Distress HEENT: positive: EOMI, Normal Voice, Symmetrical, Pharynx Normal. negative: Scleral Icterus (R), Scleral Icterus (L), Pharyngeal Erythema, Tonsillar Exudate , Tonsillar Erythema, Rhinorrhea Neck: positive: Normal Thyroid, Supple. negative: Lymphadenopathy (R), Lymphadenopathy (L) Respiratory/Chest: positive: Lungs Clear, Normal Breath Sounds. negative: Respiratory Distress, Crackles, Rales, Rhonchi Cardiovascular: positive: Regular Rhythm, Regular Rate. negative: Edema, Murmur Gastrointestinal/Abdominal: positive: Normal Bowel Sounds, Tender (epigastric), Soft. negative: Organomegaly, Distended, Guarding, Rebound Musculoskeletal: positive: Normal Inspection. negative: CVA Tenderness Extremity: positive: Normal Capillary Refill, Normal Inspection, Normal Range of Motion. negative: Tender Integumentary: positive: Normal Color, Dry, Warm Neurologic: positive: Fully Oriented, Alert, Normal Mood/Affect, Normal Response ED Treatment Course - LABORATORY CBC & Chemistry Diagram: 01/20/19 23:30 01/20/19 23:30 Medical Decision Making - Medical Decision Making 01/20/19 22:57 Melissa Cesar is a 33F with no significant PMH here for dizziness, nausea, and vomiting. Given presentation, patient likely has GI upset 2/2 high alcohol consumption and concommitant marijuana use. Ddx includes pancreatitis, gastritis, choldocholithiasis/cholecysitis/cholangitis vs. appendicitis vs. gastroenteritis. Given patient has been seen in ED 4 times prior for the same presentation and reports high amount of marijuana use, vomiting could be cyclic vomiting syndrome vs. adverse reaction to marijuana. Evaluating via: CMP CBC Mag Lipase Treatment for dehydration + N/V: 1L NS bolus Maalox Pepcid Zofran Will re-evaluate after meds and labs. 01/21/19 00:15 Labs back WBC 14.6. Patient afebrile. Lipase low. No elevated LFTs. *DC/Admit/Observation/Transfer Diagnosis at time of Disposition: Nausea & vomiting Qualifiers: Vomiting type: unspecified Vomiting Intractability: non-intractable Qualified Code(s): R11.2 - Nausea with vomiting, unspecified - Referrals - Patient Instructions Printed Discharge Instructions: DI for Nausea -- Adult, DI for Vomiting -- Adult Additional Instructions: Today you were evaluated for nausea and vomiting. We looked at your blood labs today and do not see evidence of pancreatitis. At home, please eat bland foods such as rice or bread for the next few days, and drink lots of Gatorade and water as much as you can. Please use less marijuana and drink less alcohol; using both at the same time may be a trigger for your nausea and vomiting. Please see your primary doctor in the next 3 days for further evaluation of your nausea and vomiting. If you experience worsening abdominal pain, begin vomiting blood, experience worsening dizziness/weakness, changes to vision/ hearing, fever, chest pain, bloody diarrhea, or any new or concerning symptoms, please return to the closest emergency room. - Post Discharge Activity
[2019-01-20] MEDS ORDERED: ONDANSETRON 4 MG/2 ML VIAL IVPUSH ONE (23:45)
[2019-01-20 23:47] LABS: BASO % 0.5 % (0-2.0); HEMOGLOBIN 15.2 GM/dL (10.7-15.3); LYMPH % 12.7 % (8-40); MCH 27.7 pg (25.7-33.7); MEAN CELL VOLUME 83.8 fl (80-96); MEAN PLT VOLUME 10.6 fl (7.5-11.1); MONO % 6.7 % (3.8-10.2); NEUT % 80.1 % (42.8-82.8); PLATELET COUNT 247 K/MM3 (134-434); RBC 5.49 M/mm3 (3.60-5.2); RDW 14.3 % (11.6-15.6); WHITE BLOOD COUNT 14.6 K/mm3 (4.0-10.0)
[2019-01-20] MEDS ORDERED: ONDANSETRON 4 MG/2 ML VIAL ONE (23:47)
[2019-01-21 00:05] LABS: MAGNESIUM 2.1 mg/dL (1.8-2.4)
[2019-01-21 00:13] LABS: ALBUMIN 4.6 g/dl (3.4-5.0); BILIRUBIN,TOTAL 0.6 mg/dL (0.2-1); BLOOD UREA NITROGEN 20.6 mg/dL (7-18); CALCIUM 10.2 mg/dL (8.5-10.1); CREATININE 0.9 mg/dL (0.55-1.3); POTASSIUM 3.3 mmol/L (3.5-5.1); TOT PROT 8.2 g/dl (6.4-8.2)
[2019-01-21] MEDS ORDERED: SODIUM CHLORIDE 1,000 ML IV STA (00:39)
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
[2019-01-21] MEDS ORDERED: METOCLOPRAMIDE HCL INJECTION 10 MG/2 ML VIAL IVPUSH ONE (02:33)
[2019-01-21] MEDS ORDERED: METOCLOPRAMIDE HCL INJECTION 10 MG/2 ML VIAL ONE (02:46)
[2019-01-21] MEDS ORDERED: LORazepam 2 MG/ML SDV VIAL ONE (03:53)
== END 2019-01-21 05:03 | disposition home or self-care (01) ==
LOC: JER 21:55
PROC: 3E0337Z Introduction of Electrolytic and Water Balance Substance into Peripheral Vein, Percutaneous Approach (ICD-10-PCS; principal; 2019-01-20)
PROC: 3E033GC Introduction of Other Therapeutic Substance into Peripheral Vein, Percutaneous Approach (ICD-10-PCS; 2019-01-20)
PROC: 3E033GC Introduction of Other Therapeutic Substance into Peripheral Vein, Percutaneous Approach (ICD-10-PCS; 2019-01-20)
PROC: 3E033NZ Introduction of Analgesics, Hypnotics, Sedatives into Peripheral Vein, Percutaneous Approach (ICD-10-PCS; 2019-01-20)
DX: K29.70 Gastritis, unspecified, without bleeding (principal); E86.0 Dehydration; F10.10 Alcohol abuse, uncomplicated; F12.10 Cannabis abuse, uncomplicated
CPT/HCPCS: 36415; 80053; 83690; 83735; 84703; 85025; 96361; 96365; 96375; 99283-25; J7030

== ENCOUNTER 2019-01-22 12:09 | Emergency (ER) | payer OTHER ==
[2019-01-22 12:19] VITALS: TEMP 98.5; BMI 25.9
--- NOTE | 2019-01-22 13:17 | PDOC ---
History of Present Illness - General Chief Complaint: Nausea/Vomiting Stated Complaint: Nausea/Vomiting/ABD PAIN Time Seen by Provider: 01/22/19 12:58 History Source: Patient Exam Limitations: No Limitations - History of Present Illness Initial Comments: 33 year old female with no PMH presented to ED for nausea, vomiting x4 days. Pt reported she was drinking heavily Sunday and using Marijuana, then awoke Sunday with nausea, vomiting. She stated she was seen yesterday in the ED for the same complaints, felt minimally better, but was not given any antiemetics to take. Pt reported upper bilateral abdominal pain that developed after the vomiting started. Pt denied diarrhea, constipation, recent travel, sick contacts , fever, headache. Past History - Past Medical History Allergies/Adverse Reactions: Allergies Allergy/AdvReac Type Severity Reaction Status Date / Time No Known Allergies Allergy Verified 01/22/19 12:18 Home Medications: Ambulatory Orders Metoclopramide HCl [Reglan -] 10 mg PO QID #20 tablet 01/22/19 Diabetes: No HTN: No - Reproductive History (#): 4 Para: 3 Spontaneous : 1 - Immunization History Immunization Up to Date: Yes - Suicide/Smoking/Psychosocial Hx Smoking History: Never smoked Have you smoked in the past 12 months: No Number of Cigarettes Smoked Daily: 5 If you are a former smoker, when did you quit?: patient smokes marijuana occasionally Information on smoking cessation initiated: No 'Breaking Loose' booklet given: 08/27/16 Hx Alcohol Use: No Drug/Substance Use Hx: Yes Substance Use Type: None Hx Substance Use Treatment: No Review of Systems - Review of Systems Able to Perform ROS?: Yes Comments:: General: admitted to generalized weakness. denied fever, chills. HEENT: denied sore throat, rhinorrhea, ear pain. Cardiovascular: denied chest pain, palpitations, syncope, diaphoresis. Respiratory: denied shortness of breath, cough, sputum production, hemoptysis. Gastrointestinal: admitted to abdominal pain, nausea, vomiting. denied diarrhea , constipation, blood in stool. Genitourinary: denied dysuria, increased urinary frequency, hematuria, urinary incontinence, flank pain. Back: admitted to back pain. Musculoskeletal: denied joint pain, muscle pain, joint swelling. Neurological: denied headache, dizziness, numbness, tingling, weakness. Integumentary: denied rash, laceration, abrasion. Hematologic/Lymphatic: denied bruising or bleeding. *Physical Exam - Vital Signs Last Vital Signs Temp Pulse Resp BP Pulse Ox 98.5 F 79 22 H 144/95 100 01/22/19 12:16 01/22/19 12:16 01/22/19 12:16 01/22/19 12:16 01/22/19 12:16 - Physical Exam Comments: Constitutional: Well-nourished, Well-developed, appearing stated age. appears in pain. spitting up saliva. HEENT: head is normocephalic, atraumatic. EOMI. PERRLA. Neck: supple. Full ROM. Cardiovascular: regular heart rhythm. no murmurs. no pericardial friction rub. Respiratory: clear to auscultation bilaterally. no crackles, rhonchi or wheezing. no stridor. Gastrointestinal: soft, nontender. normal bowel sounds. no rebound, guarding, masses. Extremities: peripheral pulses intact. no lower extremity edema. Neurological: CN 2-12 grossly intact. moves all four extremities. Psych: awake, alert, oriented x3. follows commands. answers questions appropriately. ED Treatment Course - LABORATORY CBC & Chemistry Diagram: 01/22/19 13:15 01/22/19 13:15 Medical Decision Making - Medical Decision Making 33 year old female with no PMH presented to ED for intractable nausea/vomiting. Pt was seen at [facility] ED yesterday for similar symptoms - Vomiting resistant to Zofran, but improved with Reglan. CBC/CMP/Lipase/ negative, mild hypokalemia. Pt was discharged home without antiemetics. No CT or US imaging was performed. Initial Vital Signs Temp Pulse Resp BP Pulse Ox 98.5 F 79 22 H 144/95 100 01/22/19 12:16 01/22/19 12:16 01/22/19 12:16 01/22/19 12:16 01/22/19 12:16 Afebrile. No tachycardia. Mild tachypnea. Mild hypertension. No hypoxia on room air. Labs ordered: CBC, CMP, lipase, serum , UA/UC Imaging ordered: none Medications ordered: pepcid, reglan 10 mg IV once, normal saline bolus 1000 cc once, tylenol IV EKG performed at 1258: rate 71, regular rhythm, normal axis, QTc 423, no acute ST changes. 01/22/19 14:05 CBC WBC 10.5 K/mm3 (4.0-10.0) H 01/22/19 13:15 RBC 5.15 M/mm3 (3.60-5.2) 01/22/19 13:15 Hgb 14.6 GM/dL (10.7-15.3) 01/22/19 13:15 Hct 43.6 % (32.4-45.2) 01/22/19 13:15 MCV 84.5 fl (80-96) 01/22/19 13:15 MCH 28.3 pg (25.7-33.7) 01/22/19 13:15 MCHC 33.5 g/dl (32.0-36.0) 01/22/19 13:15 RDW 14.1 % (11.6-15.6) 01/22/19 13:15 Plt Count 202 K/MM3 (134-434) 01/22/19 13:15 MPV 10.4 fl (7.5-11.1) 01/22/19 13:15 Absolute Neuts (auto) 7.3 K/mm3 (1.5-8.0) 01/22/19 13:15 Neutrophils % 68.9 % (42.8-82.8) 01/22/19 13:15 Lymphocytes % 21.1 % (8-40) D 01/22/19 13:15 Monocytes % 9.2 % (3.8-10.2) 01/22/19 13:15 Eosinophils % 0.1 % (0-4.5) D 01/22/19 13:15 Basophils % 0.7 % (0-2.0) 01/22/19 13:15 Nucleated RBC % 0 % (0-0) 01/22/19 13:15 Mild leukocytosis, improved from yesterday. No left shift. No anemia. CMP Sodium 139 mmol/L (136-145) 01/22/19 13:15 Potassium 3.1 mmol/L (3.5-5.1) L 01/22/19 13:15 Chloride 102 mmol/L (98-107) 01/22/19 13:15 Carbon Dioxide 28 mmol/L (21-32) 01/22/19 13:15 Anion Gap 9 MMOL/L (8-16) 01/22/19 13:15 BUN 8.7 mg/dL (7-18) 01/22/19 13:15 Creatinine 0.8 mg/dL (0.55-1.3) 01/22/19 13:15 Est GFR (CKD-EPI)AfAm 113.86 01/22/19 13:15 Est GFR (CKD-EPI)NonAf 98.24 01/22/19 13:15 Random Glucose 101 mg/dL (74-106) 01/22/19 13:15 Calcium 9.4 mg/dL (8.5-10.1) 01/22/19 13:15 Magnesium 2.2 mg/dL (1.8-2.4) 01/22/19 13:15 Total Bilirubin 0.6 mg/dL (0.2-1) 01/22/19 13:15 AST 19 U/L (15-37) 01/22/19 13:15 ALT 23 U/L (13-61) 01/22/19 13:15 Alkaline Phosphatase 63 U/L (45-117) 01/22/19 13:15 Total Protein 7.0 g/dl (6.4-8.2) 01/22/19 13:15 Albumin 4.0 g/dl (3.4-5.0) 01/22/19 13:15 Lipase 57 U/L (73-393) L 01/22/19 13:15 Hypokalemia. Medications ordered: KCL 40 mEq PO once, KCL 10 mEq IV once 01/22/19 14:18 Urine Test Results Urine Color Yellow 01/22/19 13:45 Urine Appearance Error 01/22/19 13:45 Urine pH >= 9.0 (5.0-8.0) H 01/22/19 13:45 Ur Specific [place] 1.018 (1.010-1.035) 01/22/19 13:45 Urine Protein Trace (NEGATIVE) 01/22/19 13:45 Urine Glucose (UA) Negative (NEGATIVE) 01/22/19 13:45 Urine Ketones 3+ (NEGATIVE) H 01/22/19 13:45 Urine Blood Negative (NEGATIVE) 01/22/19 13:45 Urine Nitrite Negative (NEGATIVE) 01/22/19 13:45 Urine Bilirubin Negative (NEGATIVE) 01/22/19 13:45 Ur Leukocyte Esterase Negative (NEGATIVE) 01/22/19 13:45 Negative for UTI. Negative for hematuria. Positive for ketones - consistent with frequent nausea/vomiting 01/22/19 14:22 Pt actively vomiting. Unable to tolerate PO KCL. Will re-order when vomiting ceases. Order: continuous cardiac monitoring Medications ordered: Haldol 2 mg IV once 01/22/19 14:45 Pt moved from room 8 to room 4, placed on cardiac monitoring. Pre-Haldol vitals below: Vital Signs Pulse Rate 78 01/22/19 14:40 Respiratory Rate 18 01/22/19 14:40 Blood Pressure 131/92 01/22/19 14:40 O2 Sat by Pulse Oximetry (%) 100 01/22/19 14:40 01/22/19 15:32 Pt reassessed, reported no vomiting since Haldol administration. 01/22/19 16:02 Pt tolerated water PO challenge. Pt given sandwich. 01/22/19 16:33 Pt reassessed, sleeping comfortably, arousable to voice. Pt was not eating sandwich, pt encouraged to eat. 01/22/19 16:57 Pt tolerated PO challenge. Pt informed to cease Marijuana use. Pt informed to F/U with PCP promptly. Discharge medications: Reglan 10 mg PO QID *DC/Admit/Observation/Transfer Diagnosis at time of Disposition: Nausea & vomiting - Discharge Dispostion Disposition: HOME Condition at time of disposition: Improved Decision to Admit order: No - Prescriptions Prescriptions: Metoclopramide HCl [Reglan -] 10 mg PO QID #20 tablet - Referrals Referrals: Melvin Pardo MD [Primary Care Provider] - - Patient Instructions Additional Instructions: Your lab work showed your potassium is low. You were given treatment by pill and IV. You need to have this level rechecked by your primary care doctor within 5 days. DO NOT smoke Marijuana, as this may be contributing to your symptoms. It takes 1 month for Marijuana to clear your body. Take Tylenol over the counter for pain. Take as advised on label. The rest of your lab work was normal. I have sent a prescription to your pharmacy for Reglan, an anti-nausea medication. Take as advised on label as needed for nausea/vomiting. Follow up with your primary care doctor within 3 days. Your care is not complete until you follow up. Return to the Emergency Department for chest pain, shortness of breath, palpitations, vomiting, increasing pain, visual changes, numbness, tingling, weakness or any other new, worsening or concerning symptoms. - Post Discharge Activity Forms/Work/School Notes: Back to Work
[2019-01-22] MEDS ORDERED: FAMOTIDINE 20 MG/50 ML IVPB 20 MG/50 ML MG IVPB ONE ×2 (13:18→13:44)
[2019-01-22] MEDS ORDERED: ONDANSETRON 4 MG/2 ML VIAL IVPUSH ONE (13:18)
[2019-01-22] MEDS ORDERED: SODIUM CHLORIDE 1,000 ML IV STA (13:18)
[2019-01-22 13:26] LABS: BASO % 0.7 % (0-2.0); EOS % 0.1 % (0-4.5); HEMATOCRIT 43.6 % (32.4-45.2); HEMOGLOBIN 14.6 GM/dL (10.7-15.3); LYMPH % 21.1 % (8-40); MCH 28.3 pg (25.7-33.7); MCHC 33.5 g/dl (32.0-36.0); MEAN CELL VOLUME 84.5 fl (80-96); MEAN PLT VOLUME 10.4 fl (7.5-11.1); MONO % 9.2 % (3.8-10.2); NEUT % 68.9 % (42.8-82.8); PLATELET COUNT 202 K/MM3 (134-434); RBC 5.15 M/mm3 (3.60-5.2); RDW 14.1 % (11.6-15.6); WHITE BLOOD COUNT 10.5 K/mm3 (4.0-10.0)
[2019-01-22] MEDS ORDERED: METOCLOPRAMIDE HCL INJECTION 10 MG/2 ML VIAL IVPUSH ONE (13:29)
[2019-01-22] MEDS ORDERED: ACETAMINOPHEN 1000 MG/100 ML VIAL (NON FORMULARY) IVPB ONE (13:43)
[2019-01-22] MEDS ORDERED: METOCLOPRAMIDE HCL INJECTION 10 MG/2 ML VIAL ONE (13:44)
[2019-01-22] MEDS ORDERED: ACETAMINOPHEN INJECTION 100 ML IVPB ONE ×2 (13:51→16:33)
[2019-01-22 14:01] LABS: BILIRUBIN,TOTAL 0.6 mg/dL (0.2-1); BLOOD UREA NITROGEN 8.7 mg/dL (7-18); CALCIUM 9.4 mg/dL (8.5-10.1); CREATININE 0.8 mg/dL (0.55-1.3); MAGNESIUM 2.2 mg/dL (1.8-2.4); POTASSIUM 3.1 mmol/L (3.5-5.1)
[2019-01-22] MEDS ORDERED: POTASSIUM CHLORIDE TABS 20 MEQ TABLET.ER (FP) PO ONE ×2 (14:13→16:58)
[2019-01-22 14:15] LABS: PH,URINE >= 9.0 (5.0-8.0); URINE APPEARANCE Error; URINE BILIRUBIN NEGATIVE (NEGATIVE); URINE COLOR YELLOW; URINE GLUCOSE (UA) NEGATIVE (NEGATIVE); URINE KETONE 3+ (NEGATIVE); URINE LEUK ESTERASE NEGATIVE (NEGATIVE); URINE NITRITE NEGATIVE (NEGATIVE); URINE PROTEIN TRACE (NEGATIVE); URINE UROBILINOGEN 0.2 mg/dL (0.2-1.0)
[2019-01-22] MEDS ORDERED: KCL 10 MEQ IVPB 10 MEQ/100 ML INFUS.BAG IVPB SCH (14:15)
[2019-01-22] MEDS: POTASSIUM CHLORIDE TABS 10 MEQ TABLET.ER (FP) PO ONE ×2 (14:18→14:21)
[2019-01-22] MEDS ORDERED: KCL 10 MEQ IVPB 10 MEQ/100 ML INFUS.BAG IVPB ONE (14:19)
[2019-01-22] MEDS ORDERED: HALOPERIDOL DECANOATE 500 MG/5ML MDV IM ONE (14:21)
--- NOTE | 2019-01-22 14:22 | EKG ---
Test Reason : Blood Pressure : / mmHG Vent. Rate : 071 BPM Atrial Rate : 071 BPM P-R Int : 106 ms QRS Dur : 088 ms QT Int : 390 ms P-R-T Axes : 056 047 051 degrees QTc Int : 423 ms SINUS RHYTHM WITH SINUS ARRHYTHMIA WITH SHORT ID NONSPECIFIC T WAVE ABNORMALITY ABNORMAL ECG WHEN COMPARED WITH ECG OF 07-DEC-2017 08:31, NO SIGNIFICANT CHANGE WAS FOUND Confirmed by CHRIS VILLEDA, LEÓN ([id number]) on 01/22/2019 2:22:05 PM Referred By: Confirmed By:LEÓN PEREZ MD
[2019-01-22] MEDS ORDERED: HALOPERIDOL LACTATE 5 MG/ML ONE (14:32)
[2019-01-22] MEDS ORDERED: POTASSIUM CHLORIDE TABS 10 MEQ TABLET.ER (FP) PO ONE (16:39)
--- NOTE | 2019-01-22 16:59 | PDOC ---
Documentation entered by Мария Sanchez SCRIBE, acting as scribe for Odette Cristobal MD. Odette Cristobal MD: This documentation has been prepared by the Daniel rocha Xhesika, SCRIBE, under my direction and personally reviewed by me in its entirety. I confirm that the documentation accurately reflects all work, treatment, procedures, and medical decision making performed by me. Attending Attestation - Resident Resident Name: Maura Ambriz - ED Attending Attestation I have performed the following: I have examined & evaluated the patient, The case was reviewed & discussed with the resident, I agree w/resident's findings & plan, Exceptions are as noted - HPI HPI: 01/22/19 13:55 The patient is a 33 year old female with no significant PMH of who presents to the emergency department via EMS for nausea, vomiting, and upper abdominal pain since Sunday. Patient was seen here in the ED on 01/20/19 with similar symptoms, felt better after receiving Reglan, was discharged home without any outpatient medications and came back today after having persistent vomiting. Patient states she last smoked cannabis on 01/18/19. She has had multiple previous episodes of similar symptoms, she has never been diagnosed with anything. The patient denies chest pain, shortness of breath, headache and dizziness. Denies fever, chills, cough, diarrhea and constipation. Denies dysuria, frequency, urgency and hematuria. Allergies: NKDA Social history: Daily cannabis use for the past year. - Physicial Exam PE: 01/22/19 13:56 GENERAL: Awake, alert, and fully oriented, in no acute distress HEAD: No signs of trauma EYES: PERRLA, EOMI, sclera anicteric, conjunctiva clear ENT: Auricles normal inspection, hearing grossly normal, nares patent, oropharynx clear without exudates. Moist mucosa NECK: Normal ROM, supple, no lymphadenopathy, JVD, or masses LUNGS: Breath sounds equal, clear to auscultation bilaterally. No wheezes, and no crackles HEART: Regular rate and rhythm, normal S1 and S2, no murmurs, rubs or gallops ABDOMEN: Soft, nontender, normoactive bowel sounds. No guarding, no rebound. No masses EXTREMITIES: Normal range of motion, no edema. No clubbing or cyanosis. No cords , erythema, or tenderness BACK: No midline spinal tenderness in cervical/thoracic/lumbar region NEUROLOGICAL: Normal speech, cranial nerves intact, 5/5 strength in all 4 extremities, normal sensation to light touch in all 4 extremities, normal cerebellar exam, normal gait, normal reflexes and tone SKIN: Warm, Dry, normal turgor, no rashes or lesions noted. - Medical Decision Making 01/22/19 16:41 33yo F presents to the ED with persistent n/v, upper abdominal pain Vitals wnl Exam wnl, abd exam completely benign Pt with frequent marijuana use History most consistent with cannabinoid hyperemesis but gastroenteritis vs cholecystitis vs gastritis Labs with hypokalemia likely 2/2 vomiting Also ketones in urine Pt vomiting despite reglan in the ED EKG with QTC 423, pt given haldol 2mg IV with significant improvement in sxs She is tolerating a sandwich and kelvin crackers She is well appearing with a continued benign abd exam She is clinically stable for DC home, encouraged to cut out marijuana I discussed the physical exam findings, ancillary test results and final diagnoses with the patient. I answered all of the patient's questions. The patient was satisfied with the care received and felt comfortable with the discharge plan and treatment plan. The patient will call their primary care physician within 24 hours to arrange follow-up and will return to the Emergency Department with any new, persistent or worsening symptoms. Heart Score/ECG Review #1 01/22/19 16:39 Twelve-lead EKG was performed and reviewed by me. Sinus rhythm, rate 71. Normal axis. Wavy baseline, but no ST elevations. QTC 423
[2019-01-22 17:06] VITALS: BP 126/88; PULSE 74
== END 2019-01-22 17:08 | disposition home or self-care (01) ==
LOC: JER 12:09
PROC: 3E033NZ Introduction of Analgesics, Hypnotics, Sedatives into Peripheral Vein, Percutaneous Approach (ICD-10-PCS; principal; 2019-01-22)
PROC: 3E033GC Introduction of Other Therapeutic Substance into Peripheral Vein, Percutaneous Approach (ICD-10-PCS; 2019-01-22)
PROC: 3E0337Z Introduction of Electrolytic and Water Balance Substance into Peripheral Vein, Percutaneous Approach (ICD-10-PCS; 2019-01-22)
PROC: 3E023NZ Introduction of Analgesics, Hypnotics, Sedatives into Muscle, Percutaneous Approach (ICD-10-PCS; 2019-01-22)
DX: R11.2 Nausea with vomiting, unspecified (principal)
CPT/HCPCS: 36415; 76705-TC; 80053; 81003; 83690; 83735; 84703; 85025; 87086; 93005; 93010; 96361; 96365; 96367; 96372; 96375; 99284-25; J0131; J7030

== ENCOUNTER 2019-04-27 12:18 | Emergency (ER) | payer OTHER ==
[2019-04-27 12:25] VITALS: BMI 28.5
[2019-04-27] MEDS ORDERED: SODIUM CHLORIDE 1,000 ML IV STA ×3 (12:46→15:31)
[2019-04-27] MEDS ORDERED: ONDANSETRON 4 MG/2 ML VIAL IVPUSH ONE ×2 (12:46→15:44)
[2019-04-27] MEDS ORDERED: FAMOTIDINE 20 MG/50 ML IVPB 20 MG/50 ML MG IVPB ONE ×2 (12:48→13:14)
--- NOTE | 2019-04-27 12:57 | PDOC ---
History of Present Illness - General Chief Complaint: Nausea/Vomiting Stated Complaint: VOMITING Time Seen by Provider: 04/27/19 12:43 History Source: Patient - History of Present Illness Timing/Duration: reports: constant Quality: reports: severe Abdominal Pain Onset Location: reports: generalized abdomen Past History - Past Medical History Allergies/Adverse Reactions: Allergies Allergy/AdvReac Type Severity Reaction Status Date / Time No Known Allergies Allergy Verified 04/27/19 12:25 Home Medications: Ambulatory Orders Metoclopramide HCl [Reglan -] 10 mg PO QID #20 tablet 01/22/19 Asthma: No Cancer: No Cardiac Disorders: No COPD: No Diabetes: No HTN: No Seizures: No Thyroid Disease: No - Reproductive History (#): 4 Para: 3 Spontaneous : 1 - Immunization History Immunization Up to Date: Yes - Psycho Social/Smoking Cessation Hx Smoking History: Never smoked Have you smoked in the past 12 months: No Number of Cigarettes Smoked Daily: 5 If you are a former smoker, when did you quit?: patient smokes marijuana occasionally 'Breaking Loose' booklet given: 08/27/16 Hx Alcohol Use: No Drug/Substance Use Hx: Yes Substance Use Type: None Hx Substance Use Treatment: No Review of Systems - Review of Systems Constitutional: No: Chills, Fever ABD/GI: Yes: Nausea, Vomiting, Abdominal cramping. No: Diarrhea : No: Dysuria, Flank Pain, Hematuria *Physical Exam - Vital Signs Last Vital Signs Temp Pulse Resp BP Pulse Ox 121 H 18 125/88 97 04/27/19 12:21 04/27/19 12:21 04/27/19 12:21 04/27/19 12:21 - Physical Exam 04/27/19 12:56 actively vomiting and hina very uncomfortable General Appearance: Yes: Appropriately Dressed, Severe Distress HEENT: positive: Normal Voice Neck: positive: Supple Respiratory/Chest: negative: Respiratory Distress Gastrointestinal/Abdominal: positive: Normal Bowel Sounds, Tender (poorly localized ttp but NT over RUQ or RLQ), Soft. negative: Distended, Guarding, Rebound Musculoskeletal: negative: CVA Tenderness Integumentary: positive: Dry, Warm Neurologic: positive: Fully Oriented, Alert, Normal Mood/Affect ED Treatment Course - LABORATORY CBC & Chemistry Diagram: 04/27/19 13:15 04/27/19 13:15 Medical Decision Making - Medical Decision Making 04/27/19 12:52 33-year-old female, "occasionally" smokes marijuana, here with abdominal pain with nausea and vomiting. Patient states for Thanksgiving 4 days ago, she ate usual food and alcohol and developed diffuse abdominal cramping that night, mostly located to upper abdomen and since then has had intractable nausea/ vomiting and unable to keep anything down. Denies any diarrhea fever or chills see exam N/V/abd pain ? gastritis vs gastroenteritis (though no diarrhea) vs cannibus hyperemesis vs biliary colic vs pancreatitis, less likely appy, diverticulitis, uti or renal colic Tachy and actively vomiting w/ poorly localized ttp on exam -trial of GI cocktail -IVF -labs -? CT 04/27/19 14:08 White count 17. May be reflection of nausea/vomiting but will need scan to rule out appy, etc. Patient states symptoms mildly improved with meds 04/27/19 14:31 On chart review, patient has been seen here multiple times for nausea, vomiting and abdominal pain, similar to how pt presents today. Per records, symptoms usually starts after excessive ETOH intake or cannibus use. On one visit it was documented that patient reported daily cannabis use. Reports only occasional cannibus use to me currently. Will continue to manage symptoms in ER 04/27/19 16:10 Pt signed out to MADY Belcher pending CT read and reassessment Discharge - Discharge Information Problems reviewed: Yes Clinical Impression/Diagnosis: Nausea & vomiting Qualifiers: Vomiting type: unspecified Vomiting Intractability: intractable Qualified Code( s): R11.2 - Nausea with vomiting, unspecified Abdominal pain Qualifiers: Abdominal location: generalized Qualified Code(s): R10.84 - Generalized abdominal pain Condition: Stable Disposition: HOME - Follow up/Referral Referrals: Aissatou Alcocer MD [Primary Care Provider] - - Patient Discharge Instructions Patient Printed Discharge Instructions: DI for Viral Gastroenteritis -- Adult Additional Instructions: Your Discharge Instructions: You must call primary care physician within 24 hours to arrange follow-up. Return to the Emergency Department with any new, persistent or worsening symptoms, for fever, chills, SOB, dizziness or any other concerning changes that may occur. - Post Discharge Activity
[2019-04-27] MEDS ORDERED: ONDANSETRON 4 MG/2 ML VIAL ONE (13:14)
[2019-04-27] MEDS ORDERED: KETOROLAC TROMETHAMINE 30 MG/1 ML VIAL IVPUSH ONE (13:20)
[2019-04-27 13:35] LABS: BASO % 0.6 % (0-2.0); HEMATOCRIT 52.9 % (32.4-45.2); HEMOGLOBIN 17.5 GM/dL (10.7-15.3); LYMPH % 14.2 % (8-40); MCH 28.1 pg (25.7-33.7); MCHC 33.1 g/dl (32.0-36.0); MONO % 7.6 % (3.8-10.2); NEUT % 77.6 % (42.8-82.8); RBC 6.23 M/mm3 (3.60-5.2); RDW 14.6 % (11.6-15.6); WHITE BLOOD COUNT 17.1 K/mm3 (4.0-10.0)
[2019-04-27 14:02] LABS: ALBUMIN 5.4 g/dl (3.4-5.0); BILIRUBIN,TOTAL 0.7 mg/dL (0.2-1); BLOOD UREA NITROGEN 26.1 mg/dL (7-18); CALCIUM 11.1 mg/dL (8.5-10.1); CREATININE 1.3 mg/dL (0.55-1.3); POTASSIUM 3.5 mmol/L (3.5-5.1); TOT PROT 9.4 g/dl (6.4-8.2)
[2019-04-27] MEDS ORDERED: ACETAMINOPHEN 1000 MG/100 ML VIAL (NON FORMULARY) IVPB ONE (15:44)
[2019-04-27] MEDS ORDERED: ACETAMINOPHEN INJECTION 100 ML IVPB ONE (15:58)
--- NOTE | 2019-04-27 17:11 | PDOC ---
*Physical Exam - Vital Signs Last Vital Signs Temp Pulse Resp BP Pulse Ox 97.2 F L 84 18 146/92 100 04/27/19 14:57 04/27/19 14:57 04/27/19 12:21 04/27/19 14:57 04/27/19 14:57 ED Treatment Course - LABORATORY CBC & Chemistry Diagram: 04/27/19 13:15 04/27/19 13:15 - ADDITIONAL ORDERS Additional order review: Laboratory Results 04/27/19 04/27/19 04/27/19 13:15 13:15 13:15 Sodium 140 Potassium 3.5 Chloride 99 Carbon Dioxide 31 Anion Gap 10 BUN 26.1 H Creatinine 1.3 Est GFR (CKD-EPI)AfAm 63.31 Est GFR (CKD-EPI)NonAf 54.62 Random Glucose 131 H Calcium 11.1 H Total Bilirubin 0.7 AST 23 ALT 30 Alkaline Phosphatase 84 Total Protein 9.4 H Albumin 5.4 H Lipase Cancelled 87 Serum , Qual Negative 04/27/19 13:15 RBC 6.23 H MCV 85.0 MCHC 33.1 RDW 14.6 Neutrophils % 77.6 Lymphocytes % 14.2 D Monocytes % 7.6 Eosinophils % 0.0 D Basophils % 0.6 - Medications Given in the ED: ED Medications Discontinued Medications Generic Name Dose Route Start Last Admin Trade Name Ama PRN Reason Stop Dose Admin Acetaminophen 1,000 mg 04/27/19 15:44 04/27/19 16:04 Ofirmev Injection - IVPB 04/27/19 15:45 1,000 mg ONCE ONE Administration Sodium Chloride 1,000 mls @ 1,000 mls/hr 04/27/19 12:46 04/27/19 13:08 Normal Saline - IV 04/27/19 13:45 1,000 mls/hr ASDIR STA Administration Famotidine/Sodium Chloride 20 mg in 50 mls @ 100 mls/hr 04/27/19 12:48 13:08 Pepcid 20 Mg Premixed Ivpb - IVPB 04/27/19 13:17 100 mls/hr ONCE ONE Administration Sodium Chloride 1,000 mls @ 1,000 mls/hr 04/27/19 15:14 04/27/19 15:25 Normal Saline - IV 04/27/19 16:13 1,000 mls/hr ASDIR STA Administration Sodium Chloride 1,000 mls @ 1,000 mls/hr 04/27/19 15:31 04/27/19 16:05 Normal Saline - IV 04/27/19 16:30 1,000 mls/hr ASDIR STA Administration Ketorolac Tromethamine 30 mg 04/27/19 13:20 04/27/19 14:00 Toradol Injection - IVPUSH 04/27/19 13:21 30 mg ONCE ONE Administration Ondansetron HCl 4 mg 04/27/19 12:46 04/27/19 13:08 Zofran Injection IVPUSH 04/27/19 12:47 4 mg ONCE ONE Administration Ondansetron HCl 4 mg 04/27/19 15:44 04/27/19 16:04 Zofran Injection IVPUSH 04/27/19 15:45 4 mg ONCE ONE Administration Medical Decision Making - Medical Decision Making 04/27/19 16:54 Patient endorsed to me to follow CT scan and disposition. Patient seen and examined. States she is improved abdominal pain is resolved, no nausea no vomiting. P.o. challenge given. 04/27/19 17:13 CT scan reviewed resulted as follows; Possible gastroenteritis as described. Recommend clinical correlation and additional imaging and intervention for confirmation. Possible nonspecific colitis of the right colon. No evidence of acute appendicitis. Air appears to be within the endocervical canal. Consider pelvic ultrasound as clinically warranted. Reported by: Dago Fernandes MD 04/27/2019 1616 Selected Entries 04/27/19 14:57 Temperature 97.2 F L Pulse Rate [ 84 Right] Blood Pressure 146/92 [Right Arm] O2 Sat by Pulse 100 Oximetry (%) 04/27/19 17:19 Re-eval found patient vomiting again. Ordered and given Reglan 10 mg IV Ativan 2 mg IV. 04/27/19 20:01 Patient awake, states she feels improved. Abdomen soft nontender P.o. challenge given on tolerating. Selected Entries 04/27/19 04/27/19 20:21 20:35 Temperature 98.7 F Pulse Rate [ 90 Right] Respiratory 18 Rate Blood Pressure 132/86 [Right Arm] O2 Sat by Pulse 100 Oximetry (%) I discussed the physical exam findings, ancillary test results and final diagnoses with the patient. I answered all of the patient's questions. The patient was satisfied with the care received and felt comfortable with the discharge plan and treatment plan. The Patient agrees to follow up with the primary care physician within 24-72 hours. Discharge - Discharge Information Problems reviewed: Yes Clinical Impression/Diagnosis: Nausea & vomiting Qualifiers: Vomiting type: unspecified Vomiting Intractability: intractable Qualified Code( s): R11.2 - Nausea with vomiting, unspecified Abdominal pain Qualifiers: Abdominal location: generalized Qualified Code(s): R10.84 - Generalized abdominal pain Condition: Stable Disposition: HOME - Follow up/Referral Referrals: Aissatou Alcocer MD [Primary Care Provider] - - Patient Discharge Instructions Patient Printed Discharge Instructions: DI for Viral Gastroenteritis -- Adult Additional Instructions: Your Discharge Instructions: You must call primary care physician within 24 hours to arrange follow-up. Return to the Emergency Department with any new, persistent or worsening symptoms, for fever, chills, SOB, dizziness or any other concerning changes that may occur. - Post Discharge Activity
[2019-04-27] MEDS ORDERED: METOCLOPRAMIDE HCL INJECTION 10 MG/2 ML VIAL IVPUSH ONE (17:20)
[2019-04-27] MEDS ORDERED: LORazepam 2 MG/ML SDV VIAL ONE (18:18)
[2019-04-27 20:22] VITALS: TEMP 98.7
[2019-04-27 20:36] VITALS: BP 132/86; PULSE 90
--- NOTE | 2019-04-28 10:38 | EKG ---
Test Reason : Blood Pressure : / mmHG Vent. Rate : 080 BPM Atrial Rate : 080 BPM P-R Int : 106 ms QRS Dur : 084 ms QT Int : 388 ms P-R-T Axes : 068 059 056 degrees QTc Int : 447 ms SINUS RHYTHM WITH SINUS ARRHYTHMIA WITH SHORT PA T WAVE ABNORMALITY, CONSIDER ANTERIOR ISCHEMIA ABNORMAL ECG WHEN COMPARED WITH ECG OF 22-JAN-2019 12:58, NO SIGNIFICANT CHANGE WAS FOUND Confirmed by ZULEMA VILLEDA, EMELIA ([id number]) on 04/28/2019 10:38:23 AM Referred By: Confirmed By:EMELIA POOLE MD
== END 2019-04-27 20:36 | disposition home or self-care (01) ==
LOC: JER 12:18
PROC: 3E033NZ Introduction of Analgesics, Hypnotics, Sedatives into Peripheral Vein, Percutaneous Approach (ICD-10-PCS; principal; 2019-04-27)
PROC: 3E033GC Introduction of Other Therapeutic Substance into Peripheral Vein, Percutaneous Approach (ICD-10-PCS; 2019-04-27)
PROC: 3E0333Z Introduction of Anti-inflammatory into Peripheral Vein, Percutaneous Approach (ICD-10-PCS; 2019-04-27)
PROC: 3E0337Z Introduction of Electrolytic and Water Balance Substance into Peripheral Vein, Percutaneous Approach (ICD-10-PCS; 2019-04-27)
DX: R11.2 Nausea with vomiting, unspecified (principal); R10.84 Generalized abdominal pain
CPT/HCPCS: 36415; 74177-TC; 80053; 83690; 84703; 85025; 93005; 93010; 96361; 96365; 96375; 96376; 99284-25; J0131; J7030

== ENCOUNTER 2020-02-26 02:27 | Emergency (ER) | payer OTHER ==
--- NOTE | 2020-02-26 02:38 | PDOC ---
Attending Attestation - Resident Resident Name: Kishore Merino - ED Attending Attestation I have performed the following: I have examined & evaluated the patient, The case was reviewed & discussed with the resident, I agree w/resident's findings & plan - HPI HPI: 02/26/20 06:40 see resident hpi - Physicial Exam PE: 02/26/20 06:41 see resident exam - Medical Decision Making 02/26/20 06:41 34-year-old female with history of marijuana use complaining of nausea vomiting Patient improved after IV fluids antiemetics and haldol Leukocytosis chronic DC with recommendations to refrain from marijuana use, primary care follow-up 02/26/20 06:42 02/26/20 06:44 Discharge - Discharge Information Problems reviewed: Yes Clinical Impression/Diagnosis: Epigastric abdominal pain, Cannabis abuse, unspecified Condition: Stable Disposition: HOME - Additional Discharge Information Prescriptions: Ondansetron [Zofran *Odt*] 4 mg SL TID PRN #6 od.tablet PRN Reason: Nausea - Follow up/Referral Referrals: Harshil Rojo MD [Primary Care Provider] - - Patient Discharge Instructions Patient Printed Discharge Instructions: DI for Vomiting -- Adult, DI for Cannabinoid Hyperemesis Syndrome Additional Instructions: You were seen in the ER for nausea, vomiting. Your bloodwork was normal. Your symptoms improved with medication. Follow up with your primary care provider as soon as possible, in the next 2-3 days. Return to the ER if you develop intractable nausea and vomiting or severe abdominal pain. Your symptoms may be worsened by marijuana use - avoid using marijuana. - Post Discharge Activity
--- NOTE | 2020-02-26 02:41 | PDOC ---
History of Present Illness - General Chief Complaint: Nausea/Vomiting Stated Complaint: NAUSEA,VOMITING Time Seen by Provider: 02/26/20 02:38 History Source: Patient - History of Present Illness Initial Comments: 02/26/20 02:57 34F w/no PMH p/w 4 days of nausea, vomiting, abdominal pain that began after EtOH intake. She reports drinking Sunday night and waking up the following morning with severe nausea, vomiting. She reports constant vomiting since symptom onset, non-bloody non bilious. No prior surgical history. NKDA. No one in the home has similar symptoms. She denies fevers, chills, chest pain, sob. She reports smoking marijuana regularly but has not since symptoms began. She reports that hot showers improve her symptoms to the point that she feels that she can sleep. Past History - Medical History Allergies/Adverse Reactions: Allergies Allergy/AdvReac Type Severity Reaction Status Date / Time No Known Allergies Allergy Verified 04/27/19 12:25 Home Medications: Ambulatory Orders Metoclopramide HCl [Reglan -] 10 mg PO QID #20 tablet 01/22/19 Asthma: No Cancer: No Cardiac Disorders: No COPD: No Diabetes: No HTN: No Seizures: No Thyroid Disease: No - Reproductive History (#): 4 Para: 3 Spontaneous : 1 - Immunization History Immunization Up to Date: Yes - Psycho-Social/Smoking History Smoking History: Never smoked Have you smoked in the past 12 months: No Number of Cigarettes Smoked Daily: 5 If you are a former smoker, when did you quit?: patient smokes marijuana occasionally 'Breaking Loose' booklet given: 08/27/16 Review of Systems - Review of Systems Able to Perform ROS?: Yes Comments:: 02/26/20 02:58 GENERAL/CONSTITUTIONAL: No fever or chills. No weakness. HEAD, EYES, EARS, NOSE AND THROAT: No change in vision. No ear pain or discharge. No sore throat. CARDIOVASCULAR: No chest pain or shortness of breath RESPIRATORY: No cough, wheezing, or hemoptysis. GASTROINTESTINAL: Nausea, vomiting. No diarrhea or constipation. GENITOURINARY: No dysuria, frequency, or change in urination. MUSCULOSKELETAL: No joint or muscle swelling or pain. No neck or back pain. SKIN: No rash NEUROLOGIC: No headache, vertigo, loss of consciousness, or change in strength/sensation. ENDOCRINE: No increased thirst. No abnormal weight change HEMATOLOGIC/LYMPHATIC: No anemia, easy bleeding, or history of blood clots. ALLERGIC/IMMUNOLOGIC: No hives or skin allergy. *Physical Exam - Physical Exam 02/26/20 02:59 GENERAL: Awake, alert, and fully oriented. Dry heaving. HEAD: No signs of trauma, normocephalic, atraumatic EYES: PERRLA, EOMI, sclera anicteric, conjunctiva clear ENT: Auricles normal inspection, hearing grossly normal, nares patent, oropharynx clear without exudates. Moist mucosa NECK: Normal ROM, supple, no lymphadenopathy, JVD, or masses LUNGS: No distress, speaks full sentences, clear to auscultation bilaterally HEART: Regular rate and rhythm, normal S1 and S2, no murmurs, rubs or gallops, peripheral pulses normal and equal bilaterally. ABDOMEN: Mild diffuse tenderness. Soft, normoactive bowel sounds. No guarding, no rebound. No masses EXTREMITIES : Normal inspection, Normal range of motion, no edema. No clubbing or cyanosis NEUROLOGICAL: Cranial nerves II through XII grossly intact. Normal speech, normal gait, no focal sensorimotor deficits SKIN: Warm, Dry, normal turgor, no rashes or lesions noted ED Treatment Course - LABORATORY CBC & Chemistry Diagram: 02/26/20 03:44 02/26/20 03:44 Medical Decision Making - Medical Decision Making 02/26/20 03:00 34F w/no PMH p/w 4 days of nausea, vomiting after EtOH intake. Ddx alcoholic gastritis. Cyclic vomiting syndrome possible given marijuana intake. Pancreatitis possible given abdominal pain, onset after etoh intake. Plan: CBC CMP Lipase Serum test Reglan Pepcid 1L LR Dispo: Pending reassessment 02/26/20 05:00 CBC, CMP - wnl - negative On reassessment patient feeling improvement of symptoms. Plan for po challenge, discharge with close PCP follow up. Discharge - Discharge Information Problems reviewed: Yes Clinical Impression/Diagnosis: Epigastric abdominal pain Condition: Stable Disposition: HOME - Admission No - Follow up/Referral - Patient Discharge Instructions Patient Printed Discharge Instructions: DI for Vomiting -- Adult, DI for Cannabinoid Hyperemesis Syndrome Additional Instructions: You were seen in the ER for nausea, vomiting. Your bloodwork was normal. Your symptoms improved with medication. Follow up with your primary care provider as soon as possible, in the next 2-3 days. Return to the ER if you develop intracta ble nausea and vomiting or severe abdominal pain. Your symptoms may be worsened by marijuana use - avoid using marijuana. - Post Discharge Activity
[2020-02-26 02:43] VITALS: BMI 25.3
[2020-02-26] MEDS ORDERED: FAMOTIDINE 20 MG/50 ML IVPB 20 MG/50 ML MG IVPB ONE ×2 (02:55→03:18)
[2020-02-26] MEDS ORDERED: METOCLOPRAMIDE HCL INJECTION 10 MG/2 ML VIAL IVPUSH ONE ×3 (02:55→03:35)
[2020-02-26] MEDS ORDERED: LACTATED RINGERS SOLUTION 1000 ML INFUS.BAG IV ONE (02:55)
[2020-02-26] MEDS ORDERED: HALOPERIDOL LACTATE 5 MG/ML IM ONE ×3 (03:08→03:35)
[2020-02-26] MEDS ORDERED: METOCLOPRAMIDE HCL INJECTION 10 MG/2 ML VIAL ONE (04:08)
[2020-02-26] MEDS ORDERED: HALOPERIDOL LACTATE 5 MG/ML ONE (04:08)
[2020-02-26 04:26] LABS: BASO % 0.3 % (0-2.0); HEMATOCRIT 48.6 % (32.4-45.2); HEMOGLOBIN 16.5 GM/dL (10.7-15.3); LYMPH % 19.7 % (8-40); MCH 28.5 pg (25.7-33.7); MCHC 33.8 g/dl (32.0-36.0); MEAN CELL VOLUME 84.3 fl (80-96); MEAN PLT VOLUME 10.7 fl (7.5-11.1); MONO % 9.9 % (3.8-10.2); NEUT % 70.1 % (42.8-82.8); PLATELET COUNT 275 K/MM3 (134-434); RBC 5.77 M/mm3 (3.60-5.2); RDW 14.2 % (11.6-15.6); WHITE BLOOD COUNT 14.5 K/mm3 (4.0-10.0)
[2020-02-26 04:48] LABS: ALBUMIN 4.6 g/dl (3.4-5.0); BILIRUBIN,TOTAL 0.6 mg/dL (0.2-1); BLOOD UREA NITROGEN 25.9 mg/dL (7-18); CALCIUM 10.2 mg/dL (8.5-10.1); POTASSIUM 3.6 mmol/L (3.5-5.1); TOT PROT 8.4 g/dl (6.4-8.2)
[2020-02-26 05:37] VITALS: BP 109/77; PULSE 75; TEMP 97.9
--- OUTSIDE RECORDS SUMMARY | 2020-02-26 07:35 | XMS ---
:1985 Author Organization [facility] Care Team Providers Name Role Phone [place] Unavailable Unavailable Re-disclosure Warning The records that you are about to access may contain information from federally- assisted alcohol or drug abuse programs. If such information is present, then the following federally mandated warning applies: This information has been disclosed to you from records protected by federal confidentiality rules (42 CFR part 2). The federal rules prohibit you from making any further disclosure of this information unless further disclosure is expressly permitted by the written consent of the person to whom it pertains or as otherwise permitted by 42 CFR part 2. A general authorization for the release of medical or other information is NOT sufficient for this purpose. The Federal rules restrict any use of the information to criminally investigate or prosecute any alcohol or drug abuse patient.The records that you are about to access may contain highly sensitive health information, the redisclosure of which is protected by Article 27-F of the [facility] Public Health law. If you continue you may haveaccess to information: Regarding HIV / AIDS; Provided by facilities licensed or operated by the [facility] Office of Mental Health; or Provided by the [facility] Office for People With Developmental Disabilities. If such information is present, then the following [facility] mandated warning applies: This information has been disclosed to you from confidential records which are protected by state law. State law prohibits you from making any further disclosure of this information without the specific written consent of the person to whom it pertains, or as otherwise permitted by law. Any unauthorized further disclosure in violation of state law may result in a fine or group home sentence or both. A general authorization for the release of medical or other information is NOT sufficient authorization for further disclosure. Allergies and Adverse Reactions Type Description Substance Reaction Status Data Source(s ) Adverse Reaction N.K.D.A. N.K.D.A. Info Not Active eCW1 (Sa int Available [facility]) Propensity to Propensity to No Known eCW1 (Sa int adverse adverse reactions allergies [facility] Medical reactions (disorder) [facility]) (disorder) Encounters Encounter Providers Location Date Indications Data Source(s ) Emergency Attender: ALTHEA 07/07/2018 ABSCESS [facility] SULINAdmitter: 01:26:00 PM Health [facility] re [place] [facility] ABSCESS Emergency 07/07/2018 10:31:00 AM EST [facility] 06/25/2018 11:32:00 AM EST - eCW1 ([facility] 06/25/2018 11:32:00 AM EST Practice [facility]) 06/05/2018 02:00:00 PM EST - eCW1 ([facility] 06/05/2018 02:00:00 PM EST Practice [facility]) Insurance Providers Payer name Policy type Policy ID Covered Covered green party's Policy P khai / Coverage green party ID relationship to [employer] type [employer] [employer] [place]ICA[employer] [id number] HMO Problems, Conditions, and Diagnoses Code Display Name Description Problem Type Effective Data Sour ce(s) Dates R07.89 Other chest pain Atypical chest Diagnosis eCW1 ([facility] pain [facility]) F41.9 Anxiety disorder, Anxiety Problem eCW1 (S aint unspecified [facility] Medic [facility] [facility]) Z00.00 Encounter for PE (physical Diagnosis eCW1 ([facility] general adult exam), annual [facility]) examination without abnormal findings F41.9 Anxiety disorder, Anxiety Problem eCW1 (S aint unspecified [facility]) V77.0 SCREENING FOR SCREEN-THYROID Diagnosis 07/26/2018 JORDEN Azevedo ([place] THYROID DISORDERS DISORDER 03:41:48 PM [facility]) V73.2 SCREENING MEASLES SCREENING Diagnosis 07/26/2018 JORDEN Azevedo ([place] EXAMINATION FOR 03:41:48 PM [place] MEASLES [facility]) V77.91 SCREENING FOR SCREEN LIPOID Diagnosis 07/26/2018 TAYLOR ([place] LIPOID DISORDERS DISORDER 03:41:48 PM [facility]) V70.0 ROUTINE GENERAL WELL PATIENT Diagnosis 07/26/2018 JORDEN Azevedo ([place] MEDICAL VISIT 03:41:48 PM Rafy EXAMINATION AT A [facility] ) FACILITY N76.4 Abscess of vulva ABSCESS OF VULVA Diagnosis 07/07/2018 [facility]00 PM [facility] on N75.1 Abscess of ABSCESS OF Diagnosis 07/07/2018 Decker Bartholin's gland BARTHOLIN'S GLAND 01:26:00 PM [facility] on N76.0 Acute vaginitis ACUTE VAGINITIS Diagnosis 07/07/2018 Babak Sales 10:31:00 AM Medical Cente r EST K61.0 Anal abscess ANAL ABSCESS Diagnosis 07/07/2018 [facility] 10:31:00 AM Medical Cente r EST Surgeries/Procedures Procedure Description Date Indications Data Source(s) ECG ROUTINE ECG W/LEAST 06/05/2018 eCW1 ([facility] 12 LDS I&R ONLY 12:00:00 AM EST Medical P scot PC) HANDLG&/OR CONVEY OF 06/05/2018 eCW1 ([facility] Sales SPEC FOR TR OFFICE TO 12:00:00 AM EST Med ical Practice PC) LAB XTRNL PT ACTIVATED ECG 06/05/2018 eCW1 ([facility] RECORD MONITOR 30 DAYS 12:00:00 AM EST Me dical Practice PC) PERIODIC PREVENTIVE MED 06/05/2018 eCW1 ([facility] PATIENT 18-39 YRS 12:00:00 AM EST Med ical Practice PC) COLLECTION VENOUS BLOOD 06/05/2018 eCW1 ([facility] VENIPUNCTURE 12:00:00 AM EST Medical Prac tere PC) Social History Code Duration Value Status Description Data Source(s ) Smoking 07/07/2018 Denies Ever completed Denies Ever Smoked [facility] 10:59:00 AM EST Smoked Medical C enter Smoking 07/07/2018 Denies Ever completed Denies Ever Smoked [facility] 10:54:00 AM EST Smoked Medical C enter Smoking 07/07/2018 Denies Ever completed Denies Ever Smoked [facility] 10:34:00 AM EST Smoked Medical C enter Vital Signs ID Date Data Source UNK Name Value Range Interpretation Code Description Data Source(s) Body temperature 36.776176 36.349298 [facility] Respiratory rate 18 /min 18 /min [facility] Oxygen saturation 99 % 99 % [facility] osephs in Arterial blood [facility] by Pulse oximetry Heart rate 80 /min 80 /min [facility] Diastolic blood 82 mm[Hg] 82 mm[Hg] [facility] pressure [facility] Systolic blood 140 mm[Hg] 140 mm[Hg] [facility] Body weight 70.400474 kg 70.638057 kg [facility] Measured [facility] Body temperature 36.386573 36.691287 [facility] Respiratory rate 17 /min 17 /min [facility] Oxygen saturation 99 % 99 % [facility] osephs in [facility] blood [facility] by Pulse oximetry Heart rate 109 /min 109 /min [facility] Body height 152.936131 152.719823 cm [facility] Diastolic blood 76 mm[Hg] 76 mm[Hg] [facility] Systolic blood 145 mm[Hg] 145 mm[Hg] [facility] Body mass index 30.2 kg/m2 30.2 kg/m2 [facility] (BMI) [Ratio] Medical [facility] ter Respiratory rate 18 /min 18 /min eCW1 ( int [facility] Medica [facility]) Body temperature 98.3 [degF] 98.3 [degF] eCW1 ( [facility]) Systolic blood 131 mm[Hg] 131 mm[Hg] eCW1 (Babak t pressure [facility]) Diastolic blood 86 mm[Hg] 86 mm[Hg] eCW1 ([facility] pressure [facility]) Heart rate 98 /min 98 /min eCW1 ([facility]) Body weight 156 [lb_av] 156 [lb_av] eCW1 ([facility]) Deprecated Oxygen 98 % 98 % eCW1 (S aint saturation in [facility] Capillary blood by [facility]) Oximetry
--- NOTE | 2020-02-26 09:53 | EKG ---
Test Reason : Blood Pressure : / mmHG Vent. Rate : 076 BPM Atrial Rate : 076 BPM P-R Int : 106 ms QRS Dur : 086 ms QT Int : 372 ms P-R-T Axes : 059 035 052 degrees QTc Int : 418 ms SINUS RHYTHM WITH SINUS ARRHYTHMIA WITH SHORT MI NONSPECIFIC T WAVE ABNORMALITY ABNORMAL ECG WHEN COMPARED WITH ECG OF 27-APR-2019 16:41, NO SIGNIFICANT CHANGE WAS FOUND Confirmed by CUONG VILLEDA, ELLY ([id number]) on 02/26/2020 9:53:13 AM Referred By: Confirmed By:ELLY HUTCHINS MD
== END 2020-02-26 06:44 | disposition home or self-care (01) ==
LOC: JER 02:27
PROC: 3E033GC Introduction of Other Therapeutic Substance into Peripheral Vein, Percutaneous Approach (ICD-10-PCS; principal; 2020-02-26)
PROC: 3E023GC Introduction of Other Therapeutic Substance into Muscle, Percutaneous Approach (ICD-10-PCS; 2020-02-26)
DX: R10.13 Epigastric pain (principal)
CPT/HCPCS: 36415; 80053; 83690; 84703; 85025; 93005; 93010; 99284-25

== ENCOUNTER 2020-09-24 05:05 | Emergency (ER) | payer OTHER ==
[2020-09-24 05:21] VITALS: BMI 26.4
[2020-09-24] MEDS ORDERED: METOCLOPRAMIDE HCL INJECTION 10 MG/2 ML VIAL IVPB ONE (05:21)
[2020-09-24] MEDS ORDERED: LACTATED RINGERS SOLUTION 1000 ML INFUS.BAG IV ONE (05:21)
[2020-09-24] MEDS ORDERED: MAG HYDROX/AL HYDROX/SIMETH 30 ML UNIT-DOSE CUP PO ONE (05:56)
[2020-09-24] MEDS ORDERED: FAMOTIDINE 20 MG/50 ML IVPB 20 MG/50 ML MG IVPB ONE (05:56)
[2020-09-24] MEDS ORDERED: METOCLOPRAMIDE HCL INJECTION 10 MG/2 ML VIAL ONE (05:59)
[2020-09-24 06:11] LABS: BASO % 0.5 % (0-2.0); HEMATOCRIT 44.5 % (32.4-45.2); HEMOGLOBIN 15.2 GM/dL (10.7-15.3); LYMPH % 16.2 % (8-40); MCH 28.9 pg (25.7-33.7); MCHC 34.2 g/dl (32.0-36.0); MEAN CELL VOLUME 84.4 fl (80-96); MEAN PLT VOLUME 10.5 fl (7.5-11.1); MONO % 7.9 % (3.8-10.2); NEUT % 75.4 % (42.8-82.8); PLATELET COUNT 283 K/MM3 (134-434); RBC 5.27 M/mm3 (3.60-5.2); RDW 14.8 % (11.6-15.6)
[2020-09-24 06:12] LABS: CHLORIDE 104 mmol/L (98-107); SODIUM 138 mmol/L (136-145)
[2020-09-24 06:14] LABS: ALBUMIN 4.3 g/dl (3.4-5.0); BLOOD UREA NITROGEN 22.8 mg/dL (7-18); CALCIUM 9.6 mg/dL (8.5-10.1); CO2 26 mmol/L (21-32); GLUCOSE,RANDOM 136 mg/dL (74-106); LIPASE 349 U/L (73-393)
[2020-09-24 06:16] LABS: SGOT/AST 65 U/L (15-37); SGPT/ALT 27 U/L (13-61)
[2020-09-24 06:19] LABS: ALK PHOS 68 U/L (45-117); BILIRUBIN,TOTAL 0.6 mg/dL (0.2-1); TOT PROT 8.1 g/dl (6.4-8.2)
[2020-09-24 07:12] LABS: ANION GAP 8 MMOL/L (8-16)
[2020-09-24 07:53] VITALS: BP 109/93; PULSE 80; TEMP 98.8
[2020-09-24] MEDS ORDERED: POTASSIUM CHLORIDE TABS 20 MEQ TABLET.ER (FP) PO ONE ×3 (08:01→08:32)
== END 2020-09-24 09:48 | disposition home or self-care (01) ==
LOC: JER 05:05
PROC: 3E033NZ Introduction of Analgesics, Hypnotics, Sedatives into Peripheral Vein, Percutaneous Approach (ICD-10-PCS; principal; 2020-09-24)
PROC: 3E033GC Introduction of Other Therapeutic Substance into Peripheral Vein, Percutaneous Approach (ICD-10-PCS; 2020-09-24)
DX: R10.13 Epigastric pain (principal); R11.2 Nausea with vomiting, unspecified
CPT/HCPCS: 36415; 80053; 83690; 84132; 84703; 85025; 99285-25

== ENCOUNTER 2020-11-01 05:53 | Emergency (ER) | payer OTHER ==
[2020-11-01 06:16] VITALS: BMI 26.2
[2020-11-01] MEDS ORDERED: ONDANSETRON 4 MG/2 ML VIAL IVPUSH ONE ×2 (07:20→09:47)
[2020-11-01] MEDS ORDERED: SODIUM CHLORIDE 0.9% 500 ML INFUS.BAG IV ONE ×2 (07:20→11:03)
[2020-11-01] MEDS ORDERED: ONDANSETRON 4 MG/2 ML VIAL ONE ×2 (07:38→10:31)
[2020-11-01 08:17] LABS: BASO % 0.4 % (0-2.0); HEMATOCRIT 39.7 % (32.4-45.2); HEMOGLOBIN 13.4 GM/dL (10.7-15.3); LYMPH % 7.4 % (8-40); MCH 28.7 pg (25.7-33.7); MCHC 33.7 g/dl (32.0-36.0); MEAN CELL VOLUME 85.2 fl (80-96); MEAN PLT VOLUME 10.3 fl (7.5-11.1); MONO % 5.3 % (3.8-10.2); NEUT % 86.9 % (42.8-82.8); PLATELET COUNT 250 K/MM3 (134-434); RBC 4.66 M/mm3 (3.60-5.2); RDW 14.2 % (11.6-15.6); WHITE BLOOD COUNT 14.4 K/mm3 (4.0-10.0)
[2020-11-01 08:29] LABS: EPI CELLS >36 /uL (0-25.1); HYALINE CASTS 20 /uL (0-3.1); PH,URINE 6.5 (5.0-8.0); URINE APPEARANCE CLOUDY; URINE BACTERIA 609 /uL (0-1359); URINE BILIRUBIN NEGATIVE (NEGATIVE); URINE COLOR YELLOW; URINE GLUCOSE (UA) NEGATIVE (NEGATIVE); URINE KETONE 2+ (NEGATIVE); URINE LEUK ESTERASE 1+ (NEGATIVE); URINE NITRITE NEGATIVE (NEGATIVE); URINE PROTEIN 3+ (NEGATIVE); URINE RBC 124 /uL (0-23.9); URINE WBC 272 /uL (0-25.8)
[2020-11-01 08:35] LABS: CALCIUM 9.8 mg/dL (8.5-10.1)
[2020-11-01 08:36] LABS: ALBUMIN 4.1 g/dl (3.4-5.0); BLOOD UREA NITROGEN 13.5 mg/dL (7-18)
[2020-11-01 08:39] LABS: BILIRUBIN,TOTAL 0.4 mg/dL (0.2-1); CREATININE 0.7 mg/dL (0.55-1.3)
[2020-11-01] MEDS ORDERED: CEFTRIAXONE 1 GM in DEXTROSE 5%-WATER - 100 ML IVPB ONE (08:39)
[2020-11-01 08:40] LABS: TOT PROT 7.5 g/dl (6.4-8.2)
[2020-11-01] MEDS ORDERED: CEFTRIAXONE 1 GM/50 ML BAG ONE (09:02)
[2020-11-01] MEDS ORDERED: METOCLOPRAMIDE HCL INJECTION 10 MG/2 ML VIAL IVPB ONE (11:03)
[2020-11-01] MEDS ORDERED: METOCLOPRAMIDE HCL INJECTION 10 MG/2 ML VIAL ONE (11:04)
[2020-11-01 11:56] VITALS: BP 112/64; PULSE 75; TEMP 98.2
[2020-11-01] MEDS ORDERED: PROMETHAZINE HCL 25 MG/1 ML VIAL IVPUSH ONE (12:07)
[2020-11-01] MEDS ORDERED: PROMETHAZINE HCL 25 MG/1 ML VIAL ONE (12:11)
== END 2020-11-01 13:51 | disposition home or self-care (01) ==
LOC: JER 05:53
PROC: 3E0233Z Introduction of Anti-inflammatory into Muscle, Percutaneous Approach (ICD-10-PCS; principal; 2020-11-01)
PROC: 3E033GC Introduction of Other Therapeutic Substance into Peripheral Vein, Percutaneous Approach (ICD-10-PCS; 2020-11-01)
PROC: 3E033GC Introduction of Other Therapeutic Substance into Peripheral Vein, Percutaneous Approach (ICD-10-PCS; 2020-11-01)
PROC: 3E033GC Introduction of Other Therapeutic Substance into Peripheral Vein, Percutaneous Approach (ICD-10-PCS; 2020-11-01)
PROC: 3E033GC Introduction of Other Therapeutic Substance into Peripheral Vein, Percutaneous Approach (ICD-10-PCS; 2020-11-01)
DX: O21.0 Mild hyperemesis gravidarum (principal); O23.10 Infections of bladder in pregnancy, unspecified trimester; Z3A.01 Less than 8 weeks gestation of pregnancy
CPT/HCPCS: 36415; 76801-TC; 80053; 81003; 84702; 85025; 87086; 99284-25

== ENCOUNTER 2020-11-03 11:07 | Observation (INO) | payer OTHER ==
[2020-11-03] MEDS ORDERED: METOCLOPRAMIDE HCL INJECTION 10 MG/2 ML VIAL IVPUSH ONE (12:26)
[2020-11-03] MEDS ORDERED: FAMOTIDINE 20 MG/50 ML IVPB 20 MG/50 ML MG IVPB ONE ×2 (12:26→12:47)
[2020-11-03] MEDS ORDERED: DEXTROSE 5%-NORMAL SALINE 1,000 ML IV ONE ×2 (12:26→14:03)
[2020-11-03] MEDS ORDERED: METOCLOPRAMIDE HCL INJECTION 10 MG/2 ML VIAL ONE (12:46)
[2020-11-03 13:17] LABS: BASO % 1.7 % (0-2.0); EOS % 0.1 % (0-4.5); HEMATOCRIT 40.4 % (32.4-45.2); HEMOGLOBIN 13.7 GM/dL (10.7-15.3); LYMPH % 21.6 % (8-40); MCH 28.4 pg (25.7-33.7); MCHC 33.8 g/dl (32.0-36.0); MEAN CELL VOLUME 84.2 fl (80-96); MEAN PLT VOLUME 10.3 fl (7.5-11.1); MONO % 9.3 % (3.8-10.2); NEUT % 67.3 % (42.8-82.8); PLATELET COUNT 218 K/MM3 (134-434); WHITE BLOOD COUNT 12.8 K/mm3 (4.0-10.0)
[2020-11-03 13:21] LABS: EPI CELLS >36 /uL (0-25.1); HYALINE CASTS 15 /uL (0-3.1); PH,URINE 8.5 (5.0-8.0); URINE APPEARANCE CLEAR; URINE BACTERIA 1803 /uL (0-1359); URINE BILIRUBIN NEGATIVE (NEGATIVE); URINE COLOR YELLOW; URINE GLUCOSE (UA) NEGATIVE (NEGATIVE); URINE KETONE 1+ (NEGATIVE); URINE LEUK ESTERASE 2+ (NEGATIVE); URINE NITRITE NEGATIVE (NEGATIVE); URINE PROTEIN 1+ (NEGATIVE); URINE WBC 280 /uL (0-25.8)
[2020-11-03] MEDS ORDERED: CEFTRIAXONE 2,000 MG in DEXTROSE 5%-WATER - 50 ML IVPB ONE (13:26)
[2020-11-03] MEDS ORDERED: CEFTRIAXONE 2 GM/100 ML BAG IVPB ONE (13:37)
[2020-11-03 13:47] LABS: ALBUMIN 3.8 g/dl (3.4-5.0); CALCIUM 9.1 mg/dL (8.5-10.1)
[2020-11-03 13:48] LABS: BLOOD UREA NITROGEN 12.5 mg/dL (7-18); MAGNESIUM 2.2 mg/dL (1.8-2.4)
[2020-11-03 13:51] LABS: CREATININE 0.6 mg/dL (0.55-1.3)
[2020-11-03 13:52] LABS: BILIRUBIN,TOTAL 0.5 mg/dL (0.2-1); TOT PROT 6.8 g/dl (6.4-8.2)
[2020-11-03] MEDS ORDERED: POTASSIUM CHLORIDE TABS 20 MEQ TABLET.ER (FP) PO ONE ×2 (14:04→14:25)
[2020-11-03] MEDS ORDERED: ONDANSETRON 4 MG/2 ML VIAL IVPUSH PRN (17:29)
[2020-11-03] MEDS: DEXTROSE 5%-LACTATED RINGERS 1,000 ML IV SCH ×2 (18:15→20:43)
[2020-11-03 23:39] VITALS: BMI 27.4
[2020-11-04] MEDS: DEXTROSE 5%-LACTATED RINGERS 1,000 ML IV SCH ×2 (04:00→12:54)
[2020-11-04 08:03] LABS: HEMOGLOBIN 12.4 GM/dL (10.7-15.3); MCHC 33.5 g/dl (32.0-36.0); MEAN CELL VOLUME 86.7 fl (80-96); MEAN PLT VOLUME 10.2 fl (7.5-11.1); PLATELET COUNT 186 K/MM3 (134-434); RBC 4.27 M/mm3 (3.60-5.2); RDW 13.9 % (11.6-15.6); WHITE BLOOD COUNT 9.2 K/mm3 (4.0-10.0)
[2020-11-04 08:28] LABS: BLOOD UREA NITROGEN 5.3 mg/dL (7-18)
[2020-11-04 08:29] LABS: CALCIUM 8.5 mg/dL (8.5-10.1); MAGNESIUM 1.9 mg/dL (1.8-2.4)
[2020-11-04 08:31] LABS: CREATININE 0.5 mg/dL (0.55-1.3); PHOSPHOROUS 2.6 mg/dL (2.5-4.9)
[2020-11-04 08:33] LABS: BILIRUBIN,TOTAL 0.5 mg/dL (0.2-1); TOT PROT 5.4 g/dl (6.4-8.2)
[2020-11-04] MEDS ORDERED: DEXTROSE 5%-WATER - 50 ML IVPB ONE (08:53)
[2020-11-04] MEDS ORDERED: cefTRIAXone SODIUM 1 GM VIAL ONE (08:53)
[2020-11-04] MEDS: CEFTRIAXONE 1 GM in DEXTROSE 5%-WATER - 50 ML IVPB SCH (09:12)
[2020-11-04] MEDS: ENOXAPARIN NA (PORCINE) 40 MG/0.4 ML DISP.SYRIN SQ SCH (09:13)
[2020-11-04] MEDS ORDERED: POTASSIUM CHLORIDE TABS 20 MEQ TABLET.ER (FP) PO ONE (15:10)
[2020-11-04] MEDS ORDERED: ONDANSETRON 4 MG TABLET PO PRN (15:12)
[2020-11-04 17:56] LABS: URINE BARBITURATES NEGATIVE ng/ml (CUTOFF=200); URINE BENZODIAZEPINES NEGATIVE ng/ml (CUTOFF=200)
[2020-11-04 17:57] LABS: METHADONE, UR NEGATIVE ng/ml (CUTOFF=300); OPIATES, URI NEGATIVE ng/ml (CUTOFF=300); PHENCYCLIDINE,URINE NEGATIVE ng/ml (CUTOFF=25)
[2020-11-04 18:03] LABS: COCAINE, UR NEGATIVE ng/ml (CUTOFF=300); URINE AMPHETAMINES NEGATIVE ng/ml (CUTOFF=500)
[2020-11-04] MEDS ORDERED: PT OWN MED DRAWER 7, Y5N ONE (18:45)
[2020-11-04] MEDS: POTASSIUM CHLORIDE TABS 20 MEQ TABLET.ER (FP) PO SCH (21:19)
[2020-11-04] MEDS ORDERED: PYRIDOXINE HCL (B-6) 50 MG TABLET (FP) PO SCH (22:00)
[2020-11-05 09:22] LABS: BASO % 0.8 % (0-2.0); EOS % 0.6 % (0-4.5); HEMATOCRIT 39.7 % (32.4-45.2); HEMOGLOBIN 13.6 GM/dL (10.7-15.3); LYMPH % 25.9 % (8-40); MCHC 34.1 g/dl (32.0-36.0); MEAN CELL VOLUME 85.1 fl (80-96); MEAN PLT VOLUME 9.8 fl (7.5-11.1); MONO % 7.9 % (3.8-10.2); NEUT % 64.8 % (42.8-82.8); PLATELET COUNT 189 K/MM3 (134-434); RBC 4.67 M/mm3 (3.60-5.2); RDW 13.7 % (11.6-15.6); WHITE BLOOD COUNT 10.9 K/mm3 (4.0-10.0)
[2020-11-05 09:48] LABS: BLOOD UREA NITROGEN 5.8 mg/dL (7-18)
[2020-11-05 09:51] LABS: CREATININE 0.6 mg/dL (0.55-1.3)
[2020-11-05] MEDS ORDERED: DEXTROSE 5%-WATER - 50 ML IVPB ONE (10:26)
[2020-11-05] MEDS ORDERED: cefTRIAXone SODIUM 1 GM VIAL ONE (10:26)
[2020-11-05 11:03] VITALS: BP 113/77; PULSE 77; TEMP 98
[2020-11-05] MEDS: ENOXAPARIN NA (PORCINE) 40 MG/0.4 ML DISP.SYRIN SQ SCH (11:11)
[2020-11-05] MEDS: POTASSIUM CHLORIDE TABS 20 MEQ TABLET.ER (FP) PO SCH (11:11)
[2020-11-05] MEDS: CEFTRIAXONE 1 GM in DEXTROSE 5%-WATER - 50 ML IVPB SCH (11:11)
== END 2020-11-05 14:30 | disposition home or self-care (01) ==
LOC: JER 11:07 → JERBED 16:16 → INTOOBSV 16:16 → J5S 20:56
PROVIDERS: ATTEND Internal Medicine
PROC: 3E033GC Introduction of Other Therapeutic Substance into Peripheral Vein, Percutaneous Approach (ICD-10-PCS; principal; 2020-11-03)
PROC: 3E03329 Introduction of Other Anti-infective into Peripheral Vein, Percutaneous Approach (ICD-10-PCS; 2020-11-03)
PROC: 3E033GC Introduction of Other Therapeutic Substance into Peripheral Vein, Percutaneous Approach (ICD-10-PCS; 2020-11-03)
PROC: 3E023GC Introduction of Other Therapeutic Substance into Muscle, Percutaneous Approach (ICD-10-PCS; 2020-11-03)
DX: O26.891 Other specified pregnancy related conditions, first trimester (principal); O21.1 Hyperemesis gravidarum with metabolic disturbance; O23.41 Unspecified infection of urinary tract in pregnancy, first trimester; Z3A.01 Less than 8 weeks gestation of pregnancy
CPT/HCPCS: 36415; 76775-TC; 76817-TC; 80048; 80053; 80307; 81003; 83735; 84100; 85025; 85027; 87086; 93005; 93010; 96361; 96365; 96366; 96367; 96372; 99285-25; C9803; G0378; U0003; U0005

== ENCOUNTER 2020-12-03 16:06 | Emergency (ER) | payer OTHER ==
[2020-12-03 16:23] VITALS: BMI 25.4
[2020-12-03] MEDS ORDERED: SODIUM CHLORIDE 1,000 ML IV STA (17:06)
[2020-12-03] MEDS ORDERED: FAMOTIDINE 20 MG/50 ML IVPB 20 MG/50 ML MG IVPB ONE ×2 (17:06→17:15)
[2020-12-03] MEDS ORDERED: METOCLOPRAMIDE HCL INJECTION 10 MG/2 ML VIAL IVPUSH ONE (17:17)
[2020-12-03 17:44] LABS: BASO % 0.5 % (0-2.0); HEMATOCRIT 44.2 % (32.4-45.2); HEMOGLOBIN 14.7 GM/dL (10.7-15.3); LYMPH % 8.5 % (8-40); MCH 27.8 pg (25.7-33.7); MCHC 33.2 g/dl (32.0-36.0); MEAN CELL VOLUME 83.9 fl (80-96); MEAN PLT VOLUME 10.3 fl (7.5-11.1); PLATELET COUNT 276 10^3/uL (134-434); RBC 5.27 M/mm3 (3.60-5.2); RDW 14.2 % (11.6-15.6); WHITE BLOOD COUNT 21.8 K/mm3 (4.0-10.0)
[2020-12-03] MEDS ORDERED: METOCLOPRAMIDE HCL INJECTION 10 MG/2 ML VIAL ONE (17:46)
[2020-12-03 18:00] LABS: ALBUMIN 4.1 g/dl (3.4-5.0); BLOOD UREA NITROGEN 22.8 mg/dL (7-18); CALCIUM 10.8 mg/dL (8.5-10.1)
[2020-12-03 18:04] LABS: CREATININE 0.7 mg/dL (0.55-1.3)
[2020-12-03 18:05] LABS: BILIRUBIN,TOTAL 0.4 mg/dL (0.2-1); TOT PROT 7.8 g/dl (6.4-8.2)
[2020-12-03 18:44] LABS: ANISOCYTOSIS 1+; MACROCYTOSIS 1+; PLATELET ESTIMATE NORMAL
[2020-12-03 19:38] LABS: EPI CELLS 9 /uL (0-25.1); HYALINE CASTS 27 /uL (0-3.1); URINE APPEARANCE CLOUDY; URINE BACTERIA 57 /uL (0-1359); URINE BILIRUBIN NEGATIVE (NEGATIVE); URINE COLOR YELLOW; URINE GLUCOSE (UA) NEGATIVE (NEGATIVE); URINE KETONE 4+ (NEGATIVE); URINE LEUK ESTERASE 2+ (NEGATIVE); URINE NITRITE NEGATIVE (NEGATIVE); URINE PROTEIN 2+ (NEGATIVE); URINE RBC 46 /uL (0-23.9); URINE WBC 599 /uL (0-25.8)
[2020-12-03] MEDS ORDERED: SODIUM CHLORIDE 0.9% 500 ML INFUS.BAG IV ONE (19:43)
[2020-12-03] MEDS ORDERED: CEFTRIAXONE 1,000 MG in DEXTROSE 5%-WATER - 50 ML IVPB ONE (19:46)
[2020-12-03] MEDS ORDERED: CEFTRIAXONE 1 GM/50 ML BAG ONE (19:49)
[2020-12-03 20:07] VITALS: BP 125/69; PULSE 87; TEMP 98.6
== END 2020-12-03 21:51 | disposition home or self-care (01) ==
LOC: JER 16:06
PROC: 3E03329 Introduction of Other Anti-infective into Peripheral Vein, Percutaneous Approach (ICD-10-PCS; principal; 2020-12-03)
PROC: 3E033GC Introduction of Other Therapeutic Substance into Peripheral Vein, Percutaneous Approach (ICD-10-PCS; 2020-12-03)
PROC: 3E033GC Introduction of Other Therapeutic Substance into Peripheral Vein, Percutaneous Approach (ICD-10-PCS; 2020-12-03)
PROC: 3E0337Z Introduction of Electrolytic and Water Balance Substance into Peripheral Vein, Percutaneous Approach (ICD-10-PCS; 2020-12-03)
DX: O21.9 Vomiting of pregnancy, unspecified (principal); O23.41 Unspecified infection of urinary tract in pregnancy, first trimester; Z3A.10 10 weeks gestation of pregnancy
CPT/HCPCS: 36415; 76815; 80053; 81003; 83690; 84703; 85025; 87086; 99284-25

== ENCOUNTER 2020-12-04 04:18 | Observation (INO) | payer OTHER ==
[2020-12-04 04:30] VITALS: BMI 24.5
[2020-12-04] MEDS ORDERED: SODIUM CHLORIDE 0.9% 500 ML INFUS.BAG IV ONE (04:34)
[2020-12-04] MEDS ORDERED: METOCLOPRAMIDE HCL INJECTION 10 MG/2 ML VIAL IVPUSH ONE (04:53)
[2020-12-04] MEDS ORDERED: METOCLOPRAMIDE HCL INJECTION 10 MG/2 ML VIAL ONE (05:09)
[2020-12-04 05:48] LABS: BASO % 0.9 % (0-2.0); HEMATOCRIT 38.7 % (32.4-45.2); HEMOGLOBIN 12.8 GM/dL (10.7-15.3); LYMPH % 10.8 % (8-40); MCH 27.9 pg (25.7-33.7); MEAN CELL VOLUME 84.4 fl (80-96); MEAN PLT VOLUME 10.3 fl (7.5-11.1); MONO % 6.1 % (3.8-10.2); NEUT % 82.2 % (42.8-82.8); PLATELET COUNT 223 10^3/uL (134-434); RBC 4.59 M/mm3 (3.60-5.2); RDW 14.4 % (11.6-15.6); WHITE BLOOD COUNT 15.9 K/mm3 (4.0-10.0)
[2020-12-04] MEDS ORDERED: CEFTRIAXONE 1 GM/50 ML BAG ONE (05:59)
[2020-12-04 06:02] LABS: ALBUMIN 3.3 g/dl (3.4-5.0); BLOOD UREA NITROGEN 12.8 mg/dL (7-18); MAGNESIUM 2.1 mg/dL (1.8-2.4)
[2020-12-04] MEDS ORDERED: METOCLOPRAMIDE HCL INJECTION 10 MG/2 ML VIAL IVPB ONE (06:04)
[2020-12-04 06:05] LABS: CREATININE 0.6 mg/dL (0.55-1.3)
[2020-12-04 06:06] LABS: BILIRUBIN,TOTAL 0.5 mg/dL (0.2-1)
[2020-12-04 06:07] LABS: TOT PROT 6.3 g/dl (6.4-8.2)
[2020-12-04 06:10] LABS: CALCIUM 8.6 mg/dL (8.5-10.1)
[2020-12-04] MEDS ORDERED: CEFTRIAXONE 1 GM in DEXTROSE 5%-WATER - 100 ML IVPB ONE (06:19)
[2020-12-04] MEDS ORDERED: PYRIDOXINE HCL 100 MG/1 ML VIAL IM SCH (10:00)
[2020-12-04] MEDS ORDERED: ONDANSETRON 4 MG/2 ML VIAL IVPUSH ONE (10:12)
[2020-12-04] MEDS ORDERED: ONDANSETRON 4 MG/2 ML VIAL ONE (10:30)
[2020-12-04] MEDS: PYRIDOXINE HCL 100 MG/1 ML VIAL IM SCH (11:02)
[2020-12-04] MEDS ORDERED: LACTATED RINGERS SOLUTION 1,000 ML IV STA (17:52)
[2020-12-04] MEDS ORDERED: LACTATED RINGERS SOLUTION 1,000 ML IV SCH (18:00)
[2020-12-04] MEDS: KCL 10 MEQ IVPB 10 MEQ/100 ML INFUS.BAG IVPB SCH ×3 (18:33→21:02)
[2020-12-04] MEDS ORDERED: ONDANSETRON 4 MG/2 ML VIAL IVPUSH PRN (18:51)
[2020-12-05 08:18] LABS: BASO % 0.7 % (0-2.0); HEMOGLOBIN 12.1 GM/dL (10.7-15.3); MCH 27.9 pg (25.7-33.7); MCHC 32.6 g/dl (32.0-36.0); MEAN CELL VOLUME 85.4 fl (80-96); MEAN PLT VOLUME 10.2 fl (7.5-11.1); MONO % 7.8 % (3.8-10.2); NEUT % 66.5 % (42.8-82.8); PLATELET COUNT 203 10^3/uL (134-434); RBC 4.33 M/mm3 (3.60-5.2); RDW 14.6 % (11.6-15.6); WHITE BLOOD COUNT 11.2 K/mm3 (4.0-10.0)
[2020-12-05 08:34] LABS: BLOOD UREA NITROGEN 4.9 mg/dL (7-18)
[2020-12-05 08:35] LABS: CALCIUM 8.3 mg/dL (8.5-10.1); MAGNESIUM 1.7 mg/dL (1.8-2.4)
[2020-12-05 08:37] LABS: CREATININE 0.5 mg/dL (0.55-1.3)
[2020-12-05 08:38] LABS: PHOSPHOROUS 3.2 mg/dL (2.5-4.9)
[2020-12-05 08:39] LABS: BILIRUBIN,TOTAL 0.4 mg/dL (0.2-1); TOT PROT 5.7 g/dl (6.4-8.2)
[2020-12-05] MEDS ORDERED: TRIMETHOBENZAMIDE HCL 200MG/2ML INJ IM PRN (08:56)
[2020-12-05] MEDS ORDERED: cefTRIAXone SODIUM 1 GM VIAL ONE (09:09)
[2020-12-05] MEDS ORDERED: DEXTROSE 5%-WATER - 50 ML IVPB ONE (09:09)
[2020-12-05 09:11] VITALS: BP 131/84; PULSE 84; TEMP 98.8
[2020-12-05] MEDS ORDERED: PT OWN MED DRAWER 7, Y5N ONE (09:11)
[2020-12-05] MEDS: PYRIDOXINE HCL 100 MG/1 ML VIAL IM SCH (09:17)
[2020-12-05] MEDS ORDERED: CEFTRIAXONE 1 GM in DEXTROSE 5%-WATER - 50 ML IVPB SCH (10:00)
[2020-12-05] MEDS ORDERED: TRIMETHOBENZAMIDE HCL 300 MG CAPSULE PO PRN (11:33)
[2020-12-05] MEDS ORDERED: AMOX TR/POT CLAV 500MG/125MG TABLETS (FP) PO SCH (17:30)
== END 2020-12-05 16:26 | disposition home or self-care (01) ==
LOC: JER 04:18 → JERBED 12:51 → J6S 15:58
PROVIDERS: ADMIT Internal Medicine; ATTEND Internal Medicine
PROC: 3E03329 Introduction of Other Anti-infective into Peripheral Vein, Percutaneous Approach (ICD-10-PCS; principal; 2020-12-04)
PROC: 3E0337Z Introduction of Electrolytic and Water Balance Substance into Peripheral Vein, Percutaneous Approach (ICD-10-PCS; 2020-12-04)
PROC: 3E033GC Introduction of Other Therapeutic Substance into Peripheral Vein, Percutaneous Approach (ICD-10-PCS; 2020-12-04)
DX: O21.0 Mild hyperemesis gravidarum (principal); Z3A.10 10 weeks gestation of pregnancy
CPT/HCPCS: 36415; 80053; 83690; 83735; 84100; 85025; 96361; 96365; 96367; 96375; 96376; 99285-25; C9803; G0378; U0003; U0005

== ENCOUNTER 2021-06-19 11:00 | Inpatient (IN) | payer OTHER ==
[2021-06-19 12:01] VITALS: BMI 30.9
[2021-06-19 12:33] LABS: BASO % 0.7 % (0-2.0); EOS % 0.4 % (0-4.5); HEMATOCRIT 35.7 % (32.4-45.2); HEMOGLOBIN 11.4 GM/dL (10.7-15.3); LYMPH % 23.7 % (8-40); MCH 26.5 pg (25.7-33.7); MEAN PLT VOLUME 10.6 fl (7.5-11.1); MONO % 9.1 % (3.8-10.2); NEUT % 66.1 % (42.8-82.8); PLATELET COUNT 193 10^3/uL (134-434); RDW 15.5 % (11.6-15.6); WHITE BLOOD COUNT 7.6 K/mm3 (4.0-10.0)
[2021-06-19 13:00] LABS: INR 0.98 (0.83-1.09); PROTHROMBIN TIME (PATIENT) 11.3 SEC (9.7-13.0)
[2021-06-19 13:18] LABS: CALCIUM 8.5 mg/dL (8.5-10.1)
[2021-06-19 13:22] LABS: CREATININE 1.1 mg/dL (0.55-1.3)
[2021-06-19] MEDS ORDERED: DINOPROSTONE 10 MG VAGINAL SUPPOSITORY VG ONE (13:48)
[2021-06-19] MEDS ORDERED: ELECTROLYTE-148 SOLN 1,000 ML IV SCH (14:00)
[2021-06-19 20:26] LABS: OPIATES, URI NEGATIVE (NEGATIVE); PHENCYCLIDINE,URINE NEGATIVE (NEGATIVE); URINE BARBITURATES NEGATIVE (NEGATIVE)
[2021-06-19 20:45] LABS: COCAINE, UR NEGATIVE (NEGATIVE); METHADONE, UR NEGATIVE (NEGATIVE); URINE AMPHETAMINES NEGATIVE (NEGATIVE); URINE BENZODIAZEPINES NEGATIVE (NEGATIVE)
[2021-06-19] MEDS ORDERED: FENTANYL/BUPIVACAINE/NS/PF - PCEA - 50 ML DISP.SYRIN EP ONE ×2 (21:19→21:23)
[2021-06-19] MEDS ORDERED: NALOXONE HCL 0.4 MG/ML VIAL IVPUSH PRN (21:20)
[2021-06-19] MEDS ORDERED: BUPIVACAINE HCL/PF 0.25% (2.5MG/ML) 10 ML VIAL ONE (21:25)
[2021-06-19] MEDS ORDERED: OXYTOCIN 30 UNITS in 0.9% NS 30 UNIT/500 ML INFUS.BAG IVPB SCH (21:30)
[2021-06-19] MEDS ORDERED: FENTANYL/BUPIVACAINE/NS/PF - PCEA - 50 ML DISP.SYRIN EP SCH (21:30)
[2021-06-19] MEDS ORDERED: OXYTOCIN 20 UNITS in 0.9% NS 20 UNIT/1,000 ML INFUS.BAG IV ONE (22:09)
[2021-06-19] MEDS ORDERED: WITCH HAZEL 50% (TUCKS) 40 PAD/JAR PAD TP PRN (22:34)
[2021-06-19] MEDS ORDERED: ACETAMINOPHEN 325 MG TABLET (FP) PO PRN (22:34)
[2021-06-19] MEDS ORDERED: BENZOCAINE 28 GM HEMORRHOIDAL OINTMENT TP PRN (22:34)
[2021-06-19] MEDS ORDERED: METHYLERGONOVINE MALEATE 0.2 MG/1 ML AMP IM PRN (22:34)
[2021-06-19] MEDS ORDERED: BENZOCAINE 20% 57 GM BOTTLE TP PRN (22:34)
[2021-06-19] MEDS ORDERED: BISACODYL 10 MG SUPP.RECT RC PRN (22:34)
[2021-06-19] MEDS ORDERED: oxyCODONE HCL 5 MG TABLET PO PRN (22:34)
[2021-06-19] MEDS ORDERED: OXYTOCIN 20 UNITS in 0.9% NS 20 UNIT/1,000 ML INFUS.BAG IV SCH (22:45)
[2021-06-20] MEDS: IBUPROFEN 600 MG TABLET (FP) PO PRN ×2 (03:13→15:18)
[2021-06-20 06:45] LABS: HEMATOCRIT 35.2 % (32.4-45.2); HEMOGLOBIN 11.2 GM/dL (10.7-15.3); RBC 4.23 M/mm3 (3.60-5.2); WHITE BLOOD COUNT 11.9 K/mm3 (4.0-10.0)
[2021-06-20 06:46] LABS: BASO % 0.5 % (0-2.0); EOS % 0.2 % (0-4.5); LYMPH % 16.4 % (8-40); MCH 26.4 pg (25.7-33.7); MCHC 31.7 g/dl (32.0-36.0); MEAN CELL VOLUME 83.3 fl (80-96); MEAN PLT VOLUME 11.7 fl (7.5-11.1); MONO % 9.4 % (3.8-10.2); NEUT % 73.5 % (42.8-82.8); PLATELET COUNT 176 10^3/uL (134-434); RDW 15.4 % (11.6-15.6)
[2021-06-20] MEDS ORDERED: SENNOSIDES/DOCUSATE COMBO (SENNA PLUS) TABLET (UD) PO PRN (22:00)
[2021-06-21] MEDS: IBUPROFEN 600 MG TABLET (FP) PO PRN (06:30)
[2021-06-21 09:45] VITALS: BP 130/80; PULSE 74; TEMP 97.7
== END 2021-06-21 14:03 | disposition home or self-care (01) | DRG 560 ==
LOC: JLDR 11:00 → J3W 23:50
PROVIDERS: ADMIT Specialist; ATTEND Specialist
PROC: 10E0XZZ Delivery of Products of Conception, External Approach (ICD-10-PCS; principal; 2021-06-19)
DX: O80 Encounter for full-term uncomplicated delivery (principal); Z3A.39 39 weeks gestation of pregnancy; Z37.0 Single live birth
CPT/HCPCS: 36415; 59409; 80048; 80307; 85025; 85610; 85730; 86780; 86850; 86900; 86901; 88307-TC

== ENCOUNTER 2021-09-06 07:29 | Emergency (ER) | payer OTHER ==
[2021-09-06 07:54] VITALS: BMI 29.2
[2021-09-06] MEDS ORDERED: ACETAMINOPHEN 1000 MG/100 ML BAG IVPB ONE (08:47)
[2021-09-06] MEDS ORDERED: SODIUM CHLORIDE 0.9% 500 ML INFUS.BAG IV ONE ×2 (08:47)
[2021-09-06] MEDS ORDERED: ONDANSETRON 4 MG/2 ML VIAL IVPUSH ONE ×2 (08:47→13:09)
[2021-09-06] MEDS ORDERED: ACETAMINOPHEN INJECTION 100 ML IVPB ONE (09:00)
[2021-09-06] MEDS ORDERED: ONDANSETRON 4 MG/2 ML VIAL ONE ×2 (09:00→13:24)
[2021-09-06 09:29] LABS: BASO % 0.3 % (0-2.0); HEMATOCRIT 47.2 % (32.4-45.2); HEMOGLOBIN 15.7 GM/dL (10.7-15.3); LYMPH % 13.1 % (8-40); MCH 27.4 pg (25.7-33.7); MCHC 33.2 g/dl (32.0-36.0); MEAN CELL VOLUME 82.4 fl (80-96); MEAN PLT VOLUME 9.9 fl (7.5-11.1); MONO % 7.5 % (3.8-10.2); NEUT % 79.1 % (42.8-82.8); PLATELET COUNT 289 10^3/uL (134-434); RBC 5.72 M/mm3 (3.60-5.2); RDW 16.9 % (11.6-15.6); WHITE BLOOD COUNT 11.4 K/mm3 (4.0-10.0)
[2021-09-06 09:43] LABS: CALCIUM 10.7 mg/dL (8.5-10.1)
[2021-09-06 09:44] LABS: ALBUMIN 4.7 g/dl (3.4-5.0)
[2021-09-06 09:47] LABS: CREATININE 1.2 mg/dL (0.55-1.3)
[2021-09-06 09:48] LABS: BILIRUBIN,TOTAL 0.7 mg/dL (0.2-1)
[2021-09-06 09:49] LABS: TOT PROT 8.4 g/dl (6.4-8.2)
[2021-09-06 12:10] VITALS: BP 152/85; PULSE 96; TEMP 99.2
== END 2021-09-06 14:57 | disposition home or self-care (01) ==
LOC: JER 07:29
PROC: 3E033GC Introduction of Other Therapeutic Substance into Peripheral Vein, Percutaneous Approach (ICD-10-PCS; principal; 2021-09-06)
DX: R11.2 Nausea with vomiting, unspecified (principal)
CPT/HCPCS: 36415; 80053; 85025; 99284-25

== ENCOUNTER 2022-09-12 07:27 | Emergency (ER) | payer OTHER ==
[2022-09-12 07:57] VITALS: BP 127/85; PULSE 59; RESP 16; TEMP 98; BMI 26.4
[2022-09-12] MEDS ORDERED: METOCLOPRAMIDE HCL INJECTION 10 MG/2 ML VIAL IVPB ONE (08:11)
[2022-09-12] MEDS ORDERED: FAMOTIDINE 20 MG/50 ML IVPB 20 MG/50 ML MG IVPB ONE (08:11)
[2022-09-12] MEDS ORDERED: ACETAMINOPHEN 1000 MG/100 ML BAG IVPB ONE (08:11)
[2022-09-12] MEDS ORDERED: SODIUM CHLORIDE 1,000 ML IV ONE (08:11)
[2022-09-12] MEDS ORDERED: METOCLOPRAMIDE HCL INJECTION 10 MG/2 ML VIAL ONE (08:13)
[2022-09-12] MEDS ORDERED: ACETAMINOPHEN INJECTION 100 ML IVPB ONE (08:14)
[2022-09-12 09:00] LABS: HEMATOCRIT 46.2 % (32.4-45.2); LYMPH % 21.7 % (8-40); MCH 28.3 pg (25.7-33.7); MCHC 34.5 g/dl (32.0-36.0); MEAN CELL VOLUME 81.9 fl (80-96); MEAN PLT VOLUME 11.1 fl (7.5-11.1); MONO % 10.6 % (3.8-10.2); NEUT % 66.7 % (42.8-82.8); PLATELET COUNT 299 10^3/uL (134-434); RBC 5.64 M/mm3 (3.60-5.2); RDW 14.8 % (11.6-15.6); WHITE BLOOD COUNT 14.8 K/mm3 (4.0-10.0)
[2022-09-12 09:11] LABS: BLOOD UREA NITROGEN 33.4 mg/dL (7-18); CALCIUM 10.4 mg/dL (8.5-10.1)
[2022-09-12 09:12] LABS: ALBUMIN 4.6 g/dl (3.4-5.0); MAGNESIUM 2.6 mg/dL (1.8-2.4)
[2022-09-12 09:15] LABS: CREATININE 1.3 mg/dL (0.55-1.3)
[2022-09-12 09:16] LABS: BILIRUBIN,TOTAL 0.5 mg/dL (0.2-1); TOT PROT 8.6 g/dl (6.4-8.2)
[2022-09-12 13:32] LABS: EPI CELLS >36 /uL (0-25.1); HYALINE CASTS 12 /uL (0-3.1); PH,URINE 6.5 (5.0-8.0); URINE APPEARANCE CLEAR; URINE BACTERIA 268 /uL (0-1359); URINE BILIRUBIN NEGATIVE (NEGATIVE); URINE COLOR YELLOW; URINE GLUCOSE (UA) NEGATIVE (NEGATIVE); URINE KETONE 1+ (NEGATIVE); URINE LEUK ESTERASE NEGATIVE (NEGATIVE); URINE NITRITE NEGATIVE (NEGATIVE); URINE PROTEIN 1+ (NEGATIVE); URINE RBC 66 /uL (0-23.9); URINE WBC 24 /uL (0-25.8)
[2022-09-12 13:43] LABS: HCG,QUALITATIVE URINE Negative
== END 2022-09-12 12:53 | disposition home or self-care (01) ==
LOC: JER 07:27
PROC: 3E033GC Introduction of Other Therapeutic Substance into Peripheral Vein, Percutaneous Approach (ICD-10-PCS; principal; 2022-09-12)
PROC: 3E033GC Introduction of Other Therapeutic Substance into Peripheral Vein, Percutaneous Approach (ICD-10-PCS; 2022-09-12)
PROC: 3E033GC Introduction of Other Therapeutic Substance into Peripheral Vein, Percutaneous Approach (ICD-10-PCS; 2022-09-12)
DX: R11.2 Nausea with vomiting, unspecified (principal); R10.84 Generalized abdominal pain; R10.13 Epigastric pain; R68.84 Jaw pain; R42 Dizziness and giddiness
CPT/HCPCS: 36415; 74177-TC; 80053; 81003; 83690; 83735; 84703; 85025; 93005; 93010; 99285-25

== ENCOUNTER 2022-09-14 12:46 | Emergency (ER) | payer OTHER ==
[2022-09-14 13:03] VITALS: BMI 34.0
[2022-09-14] MEDS ORDERED: LACTATED RINGERS SOLUTION 1000 ML INFUS.BAG IV ONE (14:53)
[2022-09-14] MEDS ORDERED: ONDANSETRON 4 MG/2 ML VIAL IVPUSH ONE (15:13)
[2022-09-14] MEDS ORDERED: ONDANSETRON 4 MG/2 ML VIAL ONE (15:45)
[2022-09-14 16:40] LABS: BASO % 0.8 % (0-2.0); EOS % 0.6 % (0-4.5); HEMATOCRIT 44.7 % (32.4-45.2); LYMPH % 40.1 % (8-40); MCH 27.9 pg (25.7-33.7); MCHC 33.6 g/dl (32.0-36.0); MEAN CELL VOLUME 82.9 fl (80-96); MEAN PLT VOLUME 10.4 fl (7.5-11.1); MONO % 9.5 % (3.8-10.2); PLATELET COUNT 262 10^3/uL (134-434); RBC 5.39 M/mm3 (3.60-5.2); RDW 14.8 % (11.6-15.6); WHITE BLOOD COUNT 10.5 K/mm3 (4.0-10.0)
[2022-09-14 17:00] LABS: ALBUMIN 4.1 g/dl (3.4-5.0); BLOOD UREA NITROGEN 15.6 mg/dL (7-18); CALCIUM 9.7 mg/dL (8.5-10.1)
[2022-09-14 17:03] LABS: CREATININE 0.7 mg/dL (0.55-1.3)
[2022-09-14 17:05] LABS: TOT PROT 7.5 g/dl (6.4-8.2)
[2022-09-14 17:49] LABS: MAGNESIUM 2.5 mg/dL (1.8-2.4)
[2022-09-14 18:33] LABS: CALCIUM 9.2 mg/dL (8.5-10.1); MAGNESIUM 2.3 mg/dL (1.8-2.4)
[2022-09-14 18:34] LABS: BLOOD UREA NITROGEN 14.2 mg/dL (7-18)
[2022-09-14 18:37] LABS: CREATININE 0.7 mg/dL (0.55-1.3)
[2022-09-14] MEDS ORDERED: POTASSIUM CHLORIDE ORAL LIQUID 20 MEQ/15 ML PO ONE (18:54)
[2022-09-14] MEDS ORDERED: POTASSIUM CHLORIDE TABS 20 MEQ TABLET.ER (FP) PO ONE ×2 (18:56)
[2022-09-14 19:08] VITALS: BP 143/103; PULSE 82; RESP 18; TEMP 97.2
== END 2022-09-14 20:38 | disposition home or self-care (01) ==
LOC: JER 12:46
PROC: 3E033GC Introduction of Other Therapeutic Substance into Peripheral Vein, Percutaneous Approach (ICD-10-PCS; principal; 2022-09-14)
DX: K29.70 Gastritis, unspecified, without bleeding (principal); R11.2 Nausea with vomiting, unspecified
CPT/HCPCS: 36415; 80048; 80053; 83735; 85025; 93005; 93010; 99284-25

== ENCOUNTER 2022-12-21 06:09 | Observation (INO) | payer OTHER ==
[2022-12-21 06:21] VITALS: BMI 26.4
[2022-12-21] MEDS ORDERED: ONDANSETRON 4 MG/2 ML VIAL IVPUSH ONE (07:40)
[2022-12-21] MEDS ORDERED: SODIUM CHLORIDE 0.9% 500 ML INFUS.BAG IV ONE (07:41)
[2022-12-21] MEDS ORDERED: ACETAMINOPHEN 1000 MG/100 ML BAG IVPB ONE (07:47)
[2022-12-21] MEDS ORDERED: FAMOTIDINE 20 MG/50 ML IVPB 20 MG in PREMIX 50 IVPB ONE (07:50)
[2022-12-21] MEDS ORDERED: ONDANSETRON 4 MG/2 ML VIAL ONE (07:51)
[2022-12-21] MEDS ORDERED: ACETAMINOPHEN INJECTION 100 ML IVPB ONE (08:00)
[2022-12-21] MEDS ORDERED: FAMOTIDINE 20 MG/50 ML IVPB 20 MG/50 ML MG IVPB ONE (08:01)
[2022-12-21 08:15] LABS: EPI CELLS >36 /uL (0-25.1); HCG,QUALITATIVE URINE Negative; HYALINE CASTS 6 /uL (0-3.1); PH,URINE 6.5 (5.0-8.0); URINE APPEARANCE CLEAR; URINE BACTERIA 379 /uL (0-1359); URINE BILIRUBIN NEGATIVE (NEGATIVE); URINE COLOR DK YELLOW; URINE GLUCOSE (UA) NEGATIVE (NEGATIVE); URINE KETONE 2+ (NEGATIVE); URINE LEUK ESTERASE TRACE (NEGATIVE); URINE NITRITE NEGATIVE (NEGATIVE); URINE PROTEIN 2+ (NEGATIVE); URINE WBC 46 /uL (0-25.8)
[2022-12-21 08:19] LABS: POTASSIUM 3.5 mmol/L (3.5-5.1)
[2022-12-21 08:20] LABS: CALCIUM 9.4 mg/dL (8.5-10.1)
[2022-12-21 08:21] LABS: ALBUMIN 4.1 g/dl (3.4-5.0); BLOOD UREA NITROGEN 15.2 mg/dL (7-18)
[2022-12-21 08:24] LABS: BASO % 0.5 % (0-2.0); CREATININE 0.9 mg/dL (0.55-1.3); EOS % 0.1 % (0-4.5); HEMATOCRIT 45.7 % (32.4-45.2); HEMOGLOBIN 15.4 GM/dL (10.7-15.3); LYMPH % 24.2 % (8-40); MCH 27.9 pg (25.7-33.7); MCHC 33.7 g/dl (32.0-36.0); MEAN CELL VOLUME 82.8 fl (80-96); MEAN PLT VOLUME 10.1 fl (7.5-11.1); MONO % 11.7 % (3.8-10.2); NEUT % 63.5 % (42.8-82.8); PLATELET COUNT 237 10^3/uL (134-434); RBC 5.52 M/mm3 (3.60-5.2); RDW 15.8 % (11.6-15.6); WHITE BLOOD COUNT 10.9 K/mm3 (4.0-10.0)
[2022-12-21 08:26] LABS: BILIRUBIN,TOTAL 0.4 mg/dL (0.2-1); TOT PROT 7.8 g/dl (6.4-8.2)
[2022-12-21 09:07] LABS: URINE RBC 151 /uL (0-23.9)
[2022-12-21 11:08] LABS: EPI CELLS 28 /uL (0-25.1); HYALINE CASTS 1 /uL (0-3.1); URINE APPEARANCE CLEAR; URINE BACTERIA 45 /uL (0-1359); URINE BILIRUBIN NEGATIVE (NEGATIVE); URINE COLOR YELLOW; URINE GLUCOSE (UA) NEGATIVE (NEGATIVE); URINE KETONE 1+ (NEGATIVE); URINE LEUK ESTERASE NEGATIVE (NEGATIVE); URINE NITRITE NEGATIVE (NEGATIVE); URINE PROTEIN 1+ (NEGATIVE); URINE RBC 77 /uL (0-23.9); URINE WBC 19 /uL (0-25.8)
[2022-12-21] MEDS ORDERED: METOCLOPRAMIDE HCL INJECTION 10 MG/2 ML VIAL IVPUSH ONE (13:31)
[2022-12-21] MEDS ORDERED: METOCLOPRAMIDE HCL INJECTION 10 MG/2 ML VIAL ONE (13:58)
[2022-12-21 22:50] LABS: COCAINE, UR NEGATIVE (NEGATIVE); OPIATES, URI NEGATIVE (NEGATIVE)
[2022-12-21 22:51] LABS: METHADONE, UR NEGATIVE (NEGATIVE); PHENCYCLIDINE,URINE NEGATIVE (NEGATIVE); URINE BARBITURATES NEGATIVE (NEGATIVE)
[2022-12-21 22:56] LABS: URINE AMPHETAMINES NEGATIVE (NEGATIVE); URINE BENZODIAZEPINES NEGATIVE (NEGATIVE)
[2022-12-22] MEDS ORDERED: MAGNESIUM 2GM/50ML STERILE WATER IVPB IVPB ONE (01:45)
[2022-12-22] MEDS ORDERED: LACTATED RINGERS SOLUTION 1,000 ML/1,000 ML INFUS.BAG IV SCH ×2 (01:45)
[2022-12-22] MEDS ORDERED: MAGNESIUM SULFATE IN WATER 2 GM/50 ML IVPB IVPB ONE (02:00)
[2022-12-22] MEDS ORDERED: ONDANSETRON 4 MG/2 ML VIAL IVPUSH PRN (04:56)
[2022-12-22] MEDS: KCL 10 MEQ IVPB 10 MEQ/100 ML INFUS.BAG IVPB SCH ×2 (06:11→06:12)
[2022-12-22 07:24] LABS: MAGNESIUM 2.3 mg/dL (1.8-2.4)
[2022-12-22] MEDS ORDERED: ENOXAPARIN NA (PORCINE) 40 MG/0.4 ML DISP.SYRIN SQ SCH (10:00)
[2022-12-22 10:24] LABS: HEMOGLOBIN 14.7 GM/dL (10.7-15.3); MCH 27.4 pg (25.7-33.7); MCHC 31.9 g/dl (32.0-36.0); MEAN CELL VOLUME 85.8 fl (80-96); MEAN PLT VOLUME 10.7 fl (7.5-11.1); PLATELET COUNT 242 10^3/uL (134-434); RBC 5.37 M/mm3 (3.60-5.2); RDW 15.6 % (11.6-15.6); WHITE BLOOD COUNT 10.6 K/mm3 (4.0-10.0)
[2022-12-22 10:43] LABS: POTASSIUM 3.7 mmol/L (3.5-5.1)
[2022-12-22 10:45] VITALS: RESP 20
[2022-12-22 10:47] LABS: BLOOD UREA NITROGEN 9.7 mg/dL (7-18); CALCIUM 9.1 mg/dL (8.5-10.1); MAGNESIUM 2.8 mg/dL (1.8-2.4)
[2022-12-22 10:50] LABS: PHOSPHOROUS 3.4 mg/dL (2.5-4.9)
[2022-12-22 10:51] LABS: CREATININE 0.8 mg/dL (0.55-1.3)
[2022-12-22 10:52] LABS: BILIRUBIN,TOTAL 0.9 mg/dL (0.2-1); TOT PROT 7.5 g/dl (6.4-8.2)
[2022-12-22] MEDS ORDERED: BISMUTH SUBSALICYLATE 524 MG/30 ML PO PRN (14:24)
[2022-12-22] MEDS ORDERED: MAG HYDROX/AL HYDROX/SIMETH 30 ML UNIT-DOSE CUP PO ONE (14:24)
[2022-12-22] MEDS ORDERED: FAMOTIDINE 20 MG TABLET PO SCH (14:30)
[2022-12-22 15:17] VITALS: BP 128/81; PULSE 94; TEMP 98.2
== END 2022-12-22 18:12 | disposition home or self-care (01) ==
LOC: JER 06:09 → JERBED 21:00 → J6S 12-22 03:45
PROVIDERS: ADMIT Internal Medicine; ATTEND Student in an Organized Health Care Education/Training Program
PROC: 3E033NZ Introduction of Analgesics, Hypnotics, Sedatives into Peripheral Vein, Percutaneous Approach (ICD-10-PCS; principal; 2022-12-21)
PROC: 3E033GC Introduction of Other Therapeutic Substance into Peripheral Vein, Percutaneous Approach (ICD-10-PCS; 2022-12-21)
DX: A05.9 Bacterial foodborne intoxication, unspecified (principal); K29.70 Gastritis, unspecified, without bleeding; E87.6 Hypokalemia; R11.10 Vomiting, unspecified; Z29.8 Encounter for other specified prophylactic measures
CPT/HCPCS: 36415; 71046-TC-FY; 74176-TC; 76705-TC; 76775-TC; 80053; 80307; 81003; 83690; 83735; 84100; 84484; 84703; 85025; 85027; 87040; 87086; 93005; 93010; 96361; 96365; 96367; 96375; 99285-25; G0378

== ENCOUNTER 2023-06-15 05:37 | Emergency (ER) | payer OTHER ==
[2023-06-15 05:42] VITALS: BMI 26.4
[2023-06-15] MEDS ORDERED: ONDANSETRON 4 MG/2 ML VIAL IVPUSH ONE (06:01)
[2023-06-15] MEDS ORDERED: FAMOTIDINE 20 MG/50 ML IVPB 20 MG/50 ML MG IVPB ONE ×2 (06:05→06:10)
[2023-06-15] MEDS ORDERED: ACETAMINOPHEN 1000 MG/100 ML BAG IVPB ONE (06:05)
[2023-06-15] MEDS ORDERED: ACETAMINOPHEN INJECTION 100 ML IVPB ONE (06:10)
[2023-06-15] MEDS ORDERED: ONDANSETRON 4 MG/2 ML VIAL ONE (06:10)
[2023-06-15] MEDS ORDERED: LACTATED RINGERS SOLUTION 1000 ML INFUS.BAG IV ONE ×2 (06:15→08:31)
[2023-06-15 06:29] LABS: BASO % 1.1 % (0-2.0); EOS % 0.3 % (0-4.5); HEMATOCRIT 46.8 % (32.4-45.2); HEMOGLOBIN 15.8 GM/dL (10.7-15.3); LYMPH % 36.4 % (8-40); MCH 28.7 pg (25.7-33.7); MCHC 33.8 g/dl (32.0-36.0); MEAN PLT VOLUME 9.8 fl (7.5-11.1); MONO % 10.1 % (3.8-10.2); NEUT % 52.1 % (42.8-82.8); PLATELET COUNT 319 10^3/uL (134-434); RBC 5.51 M/mm3 (3.60-5.2); WHITE BLOOD COUNT 12.9 K/mm3 (4.0-10.0)
[2023-06-15 06:42] LABS: POTASSIUM 3.2 mmol/L (3.5-5.1)
[2023-06-15 06:44] LABS: CALCIUM 9.5 mg/dL (8.5-10.1)
[2023-06-15 06:45] LABS: BLOOD UREA NITROGEN 16.7 mg/dL (7-18); MAGNESIUM 2.4 mg/dL (1.8-2.4)
[2023-06-15 06:48] LABS: CREATININE 0.8 mg/dL (0.55-1.3)
[2023-06-15 06:49] LABS: TOT PROT 7.9 g/dl (6.4-8.2)
[2023-06-15 06:50] LABS: BILIRUBIN,TOTAL 0.7 mg/dL (0.2-1)
[2023-06-15] MEDS ORDERED: D5-LR+20 MEQ KCL - 20 MEQ/1,000 ML INFUS.BAG IV SCH (08:00)
[2023-06-15] MEDS ORDERED: POTASSIUM CHLORIDE ORAL LIQUID 20 MEQ/15 ML PO ONE (08:23)
[2023-06-15] MEDS ORDERED: POTASSIUM CHLORIDE ORAL LIQUID 20 MEQ/15 ML ONE (08:59)
[2023-06-15 10:52] LABS: EPI CELLS >36 /uL (0-25.1); HYALINE CASTS 4 /uL (0-3.1); URINE APPEARANCE CLEAR; URINE BACTERIA 1178 /uL (0-1359); URINE BILIRUBIN NEGATIVE (NEGATIVE); URINE COLOR YELLOW; URINE GLUCOSE (UA) NEGATIVE (NEGATIVE); URINE KETONE 2+ (NEGATIVE); URINE LEUK ESTERASE NEGATIVE (NEGATIVE); URINE NITRITE NEGATIVE (NEGATIVE); URINE PROTEIN 1+ (NEGATIVE); URINE RBC 78 /uL (0-23.9); URINE WBC 53 /uL (0-25.8)
[2023-06-15 11:07] LABS: CALCIUM 9.3 mg/dL (8.5-10.1); POTASSIUM 3.9 mmol/L (3.5-5.1)
[2023-06-15 11:08] LABS: BLOOD UREA NITROGEN 15.2 mg/dL (7-18)
[2023-06-15 11:12] LABS: CREATININE 0.9 mg/dL (0.55-1.3)
[2023-06-15 11:51] VITALS: BP 110/76; PULSE 91; RESP 20; TEMP 98.1
== END 2023-06-15 12:30 | disposition home or self-care (01) ==
LOC: JER 05:37
PROC: 3E033GC Introduction of Other Therapeutic Substance into Peripheral Vein, Percutaneous Approach (ICD-10-PCS; principal; 2023-06-15)
PROC: 3E033GC Introduction of Other Therapeutic Substance into Peripheral Vein, Percutaneous Approach (ICD-10-PCS; 2023-06-15)
PROC: 3E033NZ Introduction of Analgesics, Hypnotics, Sedatives into Peripheral Vein, Percutaneous Approach (ICD-10-PCS; 2023-06-15)
DX: R11.2 Nausea with vomiting, unspecified (principal); R00.0 Tachycardia, unspecified; R63.8 Other symptoms and signs concerning food and fluid intake; R10.13 Epigastric pain; R10.11 Right upper quadrant pain; Z20.822 Contact with and (suspected) exposure to COVID-19
CPT/HCPCS: 0241U-QW; 36415; 80048; 80053; 81003; 83690; 83735; 84703; 85025; 87086; 99284-25

== ENCOUNTER 2023-08-20 06:42 | Emergency (ER) | payer OTHER ==
[2023-08-20 07:01] VITALS: BMI 26.6
[2023-08-20] MEDS ORDERED: ACETAMINOPHEN INJECTION 100 ML IVPB ONE (07:36)
[2023-08-20] MEDS ORDERED: ONDANSETRON 4 MG/2 ML VIAL ONE (07:36)
[2023-08-20] MEDS: SODIUM CHLORIDE 0.9% 500 ML INFUS.BAG IV ONE (07:55)
[2023-08-20] MEDS: ACETAMINOPHEN 1000 MG/100 ML BAG IVPB ONE (07:56)
[2023-08-20] MEDS: ONDANSETRON 4 MG/2 ML VIAL IVPUSH ONE (07:56)
[2023-08-20 08:02] LABS: EOS % 0.1 % (0-4.5); HEMATOCRIT 51.2 % (32.4-45.2); LYMPH % 19.4 % (8-40); MCH 28.3 pg (25.7-33.7); MCHC 33.3 g/dl (32.0-36.0); MONO % 12.3 % (3.8-10.2); NEUT % 67.2 % (42.8-82.8); PLATELET COUNT 326 10^3/uL (134-434); RBC 6.03 M/mm3 (3.60-5.2); RDW 14.6 % (11.6-15.6); WHITE BLOOD COUNT 14.3 K/mm3 (4.0-10.0)
[2023-08-20 08:24] LABS: POTASSIUM 3.6 mmol/L (3.5-5.1)
[2023-08-20 08:26] LABS: CALCIUM 10.3 mg/dL (8.5-10.1)
[2023-08-20 08:27] LABS: ALBUMIN 4.7 g/dl (3.4-5.0); BLOOD UREA NITROGEN 28.4 mg/dL (7-18); MAGNESIUM 2.5 mg/dL (1.8-2.4)
[2023-08-20 08:30] LABS: CREATININE 1.3 mg/dL (0.55-1.3)
[2023-08-20 08:32] LABS: BILIRUBIN,TOTAL 0.7 mg/dL (0.2-1); TOT PROT 8.5 g/dl (6.4-8.2)
[2023-08-20 09:21] LABS: EPI CELLS >36 /uL (0-25.1); HYALINE CASTS 5 /uL (0-3.1); PH,URINE 6.5 (5.0-8.0); URINE APPEARANCE CLEAR; URINE BACTERIA 170 /uL (0-1359); URINE BILIRUBIN NEGATIVE (NEGATIVE); URINE COLOR YELLOW; URINE GLUCOSE (UA) NEGATIVE (NEGATIVE); URINE KETONE 2+ (NEGATIVE); URINE LEUK ESTERASE NEGATIVE (NEGATIVE); URINE NITRITE NEGATIVE (NEGATIVE); URINE PROTEIN 1+ (NEGATIVE); URINE RBC 119 /uL (0-23.9); URINE UROBILINOGEN 0.2 mg/dL (0.2-1.0)
[2023-08-20] MEDS ORDERED: HALOPERIDOL LACTATE 5 MG/ML ONE (09:30)
[2023-08-20] MEDS: HALOPERIDOL LACTATE 5 MG/ML IM ONE (09:35)
[2023-08-20 10:18] VITALS: TEMP 98.3
[2023-08-20 11:01] LABS: URINE WBC 74.4 /uL (0-25.8)
[2023-08-20 11:28] VITALS: BP 133/81; PULSE 110; RESP 15
== END 2023-08-20 11:28 | disposition home or self-care (01) ==
LOC: JER 06:42
PROC: 3E033NZ Introduction of Analgesics, Hypnotics, Sedatives into Peripheral Vein, Percutaneous Approach (ICD-10-PCS; principal; 2023-08-20)
PROC: 3E033GC Introduction of Other Therapeutic Substance into Peripheral Vein, Percutaneous Approach (ICD-10-PCS; 2023-08-20)
PROC: 3E023GC Introduction of Other Therapeutic Substance into Muscle, Percutaneous Approach (ICD-10-PCS; 2023-08-20)
DX: R11.2 Nausea with vomiting, unspecified (principal); M79.10 Myalgia, unspecified site; R51.9 Headache, unspecified; Z20.822 Contact with and (suspected) exposure to COVID-19
CPT/HCPCS: 0241U-QW; 36415; 71046-TC-FY; 80053; 81003; 83690; 83735; 84484; 84703; 85025; 93005; 93010; 96372; 96374; 96375; 99285-25; J0131

== ENCOUNTER 2024-07-13 08:17 | Emergency (ER) | payer OTHER ==
[2024-07-13 08:56] VITALS: BMI 23.3
[2024-07-13] MEDS: FAMOTIDINE 20 MG/50 ML IVPB 20 MG/50 ML MG IVPB ONE (09:20)
[2024-07-13] MEDS: SODIUM CHLORIDE 1,000 ML IV STA (09:20)
[2024-07-13] MEDS: MAG HYDROX/AL HYDROX/SIMETH 30 ML UNIT-DOSE CUP PO ONE (09:20)
[2024-07-13] MEDS: ACETAMINOPHEN 1000 MG/100 ML BAG IVPB ONE (09:20)
[2024-07-13] MEDS: ONDANSETRON 4 MG/2 ML VIAL IVPUSH ONE (09:20)
[2024-07-13] MEDS ORDERED: ACETAMINOPHEN INJECTION 100 ML ONE (09:38)
[2024-07-13] MEDS ORDERED: MAG HYDROX/AL HYDROX/SIMETH 30 ML UNIT-DOSE CUP ONE (09:38)
[2024-07-13] MEDS ORDERED: ONDANSETRON 4 MG/2 ML VIAL ONE (09:38)
[2024-07-13] MEDS ORDERED: FAMOTIDINE 20 MG/50 ML IVPB 20 MG/50 ML MG IVPB ONE (09:38)
[2024-07-13 09:42] LABS: BASO % 0.3 % (0-2.0); HEMATOCRIT 47.6 % (32.4-45.2); HEMOGLOBIN 15.5 GM/dL (10.7-15.3); LYMPH % 18.4 % (8-40); MCHC 32.5 g/dl (32.0-36.0); MEAN CELL VOLUME 86.2 fl (80-96); MEAN PLT VOLUME 10.1 fl (7.5-11.1); MONO % 9.6 % (3.8-10.2); NEUT % 71.7 % (42.8-82.8); PLATELET COUNT 325 10^3/uL (134-434); RBC 5.52 M/mm3 (3.60-5.2); RDW 14.7 % (11.6-15.6); WHITE BLOOD COUNT 13.9 K/mm3 (4.0-10.0)
[2024-07-13 09:43] LABS: EPI CELLS >36 /uL (0-25.1); HYALINE CASTS 4 /uL (0-3.1); URINE APPEARANCE CLEAR; URINE BACTERIA 585 /uL (0-1359); URINE BILIRUBIN NEGATIVE (NEGATIVE); URINE COLOR DK YELLOW; URINE GLUCOSE (UA) NEGATIVE (NEGATIVE); URINE KETONE 1+ (NEGATIVE); URINE LEUK ESTERASE NEGATIVE (NEGATIVE); URINE NITRITE NEGATIVE (NEGATIVE); URINE PROTEIN 3+ (NEGATIVE); URINE RBC 367 /uL (0-23.9)
[2024-07-13 10:03] LABS: POTASSIUM 3.2 mmol/L (3.5-5.1)
[2024-07-13 10:05] LABS: CALCIUM 10.5 mg/dL (8.5-10.1)
[2024-07-13 10:06] LABS: ALBUMIN 4.7 g/dl (3.4-5.0); BLOOD UREA NITROGEN 24.9 mg/dL (7-18)
[2024-07-13 10:09] LABS: CREATININE 1.1 mg/dL (0.55-1.3)
[2024-07-13 10:11] LABS: BILIRUBIN,TOTAL 0.6 mg/dL (0.2-1); TOT PROT 8.4 g/dl (6.4-8.2)
[2024-07-13 10:28] LABS: URINE WBC 64 /uL (0-25.8)
[2024-07-13 10:35] LABS: VENOUS BASE EXCESS 5.8 mmol/L (-2-2); VENOUS O2 SATURATION 65.3 % (70-80); VENOUS PCO2 45.4 mmHg (38-52); VENOUS PH 7.448 (7.310-7.410)
[2024-07-13] MEDS ORDERED: HALOPERIDOL LACTATE 5 MG/ML ONE (11:22)
[2024-07-13] MEDS: HALOPERIDOL LACTATE 5 MG/ML IVPUSH ONE (11:24)
[2024-07-13] MEDS: POTASSIUM CHLORIDE ORAL LIQUID 20 MEQ/15 ML PO ONE (14:45)
[2024-07-13] MEDS ORDERED: POTASSIUM CHLORIDE ORAL LIQUID 20 MEQ/15 ML ONE (14:47)
[2024-07-13 14:55] VITALS: BP 130/60; PULSE 77; RESP 18; TEMP 98.6
== END 2024-07-13 14:55 | disposition home or self-care (01) ==
LOC: JER 08:17
PROC: 3E033GC Introduction of Other Therapeutic Substance into Peripheral Vein, Percutaneous Approach (ICD-10-PCS; principal; 2024-07-13)
PROC: 3E033NZ Introduction of Analgesics, Hypnotics, Sedatives into Peripheral Vein, Percutaneous Approach (ICD-10-PCS; 2024-07-13)
PROC: 3E033GC Introduction of Other Therapeutic Substance into Peripheral Vein, Percutaneous Approach (ICD-10-PCS; 2024-07-13)
PROC: 3E033GC Introduction of Other Therapeutic Substance into Peripheral Vein, Percutaneous Approach (ICD-10-PCS; 2024-07-13)
DX: R11.2 Nausea with vomiting, unspecified (principal); M79.10 Myalgia, unspecified site; R19.7 Diarrhea, unspecified; R10.84 Generalized abdominal pain; R68.83 Chills (without fever); R51.9 Headache, unspecified; R42 Dizziness and giddiness; Z20.822 Contact with and (suspected) exposure to COVID-19
CPT/HCPCS: 0241U-QW; 36415; 80053; 81003; 82803; 83690; 83735; 84703; 85025; 86850; 86900; 86901; 87086; 99284-25; J0131